=== PATIENT | female | born 1955 | race Caucasian/White ===

== ENCOUNTER 2019-12-25 17:56 | Outpatient (CLI) | payer MEDICARE, OTHER, SELFPAY ==
--- NOTE | ~2019-12-25 | XR_ITS ---
EXAMINATION: XR chest 2V 12/25/2019 18:15 INDICATION: Cough and shortness of breath PROCEDURE: 2 view chest COMPARISON: Comparison to multiple prior studies sequentially, with oldest reviewed study dated 02/06. FINDINGS: The lungs are clear. The cardiomediastinal silhouette is within normal limits. There are no pleural effusions. There is no pneumothorax suspected. IMPRESSION: 1: NO ACUTE CARDIOPULMONARY DISEASE. Reviewed, dictated and finalized at location A. 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
== END 2019-12-25 17:57 | disposition home or self-care (01) ==
PROVIDERS: PCP Family Medicine; Visit Provider Physician Assistant
DX: R05 Cough (principal); R06.02 Shortness of breath
CPT/HCPCS: 71046

== ENCOUNTER 2020-03-26 09:29 | Outpatient (CLI) | payer MEDICARE, OTHER, SELFPAY ==
[2020-03-26 10:08] LABS: Basophils Absolute Auto 0.1 K/mm3 (0.0-0.1); Eosinophils Absolute Auto 0.2 K/mm3 (0-0.3); Eosinophils Percent Auto 3.2 % (0-4.4); Hematocrit 39.1 % (37.0-47.0); Hemoglobin 12.7 g/dL (12.0-15.0); Immature Granulocyte Absolute 0.03 K/mm3 (0.00-0.031); Immature Granulocyte Percent A 0.5 % (0-0.5); Lymphocytes Percent Auto 25.5 % (18.3-44.2); Mean Corpuscular HGB Conc 32.5 g/dl (32-36); Mean Corpuscular Hemoglobin 29.1 pg (26-34); Mean Corpuscular Volume 89.5 fl (80-100); Mean Platelet Volume 10.8 fl (7.4-10.4); Monocytes Absolute Auto 0.6 K/mm3 (0.1-0.6); Monocytes Percent Auto 9.6 % (2.6-8.5); Neutrophils Absolute Auto 3.8 K/mm3 (1.3-6.7); Neutrophils Percent Auto 60.2 % (45.5-73.1); Platelet Count Result 185 k/mm3 (150-375); Red Blood Count 4.37 M/mm3 (4.2-5.4); Red Cell Distribution Width 13.2 % (11.5-14.5); White Blood Count 6.3 K/mm3 (4.5-10.0)
[2020-03-26 10:18] LABS: Add Urine Microscopic? NO; Appearance Urine Clear (Clear); Bacteria Urine Trace /hpf; Bilirubin Urine Negative (Negative); Blood Urine Negative (Negative); Color Urine Yellow (Yellow); Glucose Urine UA Negative (Negative); Ketones Urine Negative (Negative); Leukocyte Esterase Ur Negative LEU/UL (NEGATIVE); Mucus Urine Rare /lpf; Nitrate Urine Negative (Negative); Protein Urine Negative (Negative); RBC Urine 0-2 /hpf (0-2); Specific Grav Ur 1.018 (1.001-1.035); Squamous Epithelial Cell Urine Many /hpf (Few); Urobilinogen Urine Negative mg/dL (<2.0); WBC Urine 0-3 /hpf (0-3)
[2020-03-26 10:21] LABS: Alanine Aminotransferase 20 U/L (4-35); Albumin Level 4.2 g/dL (3.5-5.1); Alkaline Phosphatase 98 U/L (38-126); Aspartate Amino Transferase 27 U/L (14-36); Bilirubin,Total 0.4 mg/dL (0.2-1.3); Blood Urea Nitrogen 22 mg/dL (7-17); Calcium 9.2 mg/dL (8.4-10.2); Carbon Dioxide 28 mmol/L (22-30); Chloride 106 mmol/L (98-107); Cholesterol 157 mg/dL (0-200); Estimated Glomerular Filt Rate 50; Glucose 104 mg/dL (65-105); HDL Direct 49 mg/dL; Potassium 4.6 mmol/L (3.4-5.0); Sodium 140 mmol/L (137-145); Triglycerides 160 mg/dL (<150)
[2020-03-26 10:32] LABS: LDL Cholesterol Direct 69 mg/dL
== END 2020-03-26 09:30 | disposition home or self-care (01) ==
PROVIDERS: PCP Family Medicine; Visit Provider Physician Assistant
DX: I10 Essential (primary) hypertension (principal); E78.5 Hyperlipidemia, unspecified; E03.9 Hypothyroidism, unspecified
CPT/HCPCS: 36415; 80053; 80061; 81003; 84443; 85025

== ENCOUNTER 2020-05-26 15:17 | Outpatient (CLI) | payer MEDICARE, OTHER, SELFPAY ==
--- NOTE | ~2020-05-26 | MM_ITS ---
EXAMINATION: MM screening alex BI w flaquita HISTORY: Screening mammogram TECHNIQUE: Craniocaudal and mediolateral oblique 3-D tomosynthesis images were obtained and synthetic 2-D images were generated. CAD analysis was submitted and interpreted. COMPARISON: 03/28/2019 BREAST PARENCHYMAL COMPOSITION: There are scattered areas of fibroglandular density. FINDINGS: There is no evidence of suspicious mass, calcification, or architectural distortion to sugg est malignancy in either breast. There has been no suspicious interval change. IMPRESSION: 1. No mammographic evidence of malignancy. 2. Recommend routine screening mammography in one year. BI-RADS Category 1: Negative Reviewed, dictated and finalized at location A.
--- NOTE | ~2020-05-26 | CT_ITS ---
EXAMINATION: CT lung screening DATE: 05/26/2020 16:02 INDICATION: Personal history of tobacco dependence, 30 year smoking history TECHNIQUE: Computed tomography (CT) of the chest was performed without intravenous contrast. The dose -length product (DLP) was 377.48 mGy-cm. 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 COMPARISON: 11/07/2017 FINDINGS: Stable 2 mm nodules in the lower lobes are unchanged since the 2017 comparison. No new pulm onary nodule is identified. Calcified pulmonary nodules are consistent with old granulomatous disease . The lungs are free of acute opacities. There is no pleural effusion or pneumothorax. Mild emphysema is noted. No pathologically enlarged thoracic lymph nodes are identified. The heart size is normal. There is moderate thoracic spondylosis. IMPRESSION: 1. Lung-RADS category 2: Benign appearance or behavior. Continue annual screening with noncontrast lo w-dose chest CT in 12 months. Reviewed, dictated and finalized at location A. IMPRESSION: 1. Lung-RADS category 2: Benign appearance or behavior. Continue annual screeni ng with noncontrast low-dose chest CT in 12 months.
== END 2020-05-26 15:18 | disposition home or self-care (01) ==
LOC: ANHIMG 15:20
PROVIDERS: PCP Family Medicine; Visit Provider Family Medicine
DX: Z87.891 Personal history of nicotine dependence (principal); Z12.31 Encounter for screening mammogram for malignant neoplasm of breast
CPT/HCPCS: 77063; 77067; G0297

== ENCOUNTER 2020-06-19 12:44 | Outpatient (CLI) | payer MEDICARE, OTHER, SELFPAY ==
--- NOTE | ~2020-06-19 | US_ITS ---
US venous doppler [facility] DATE: 06/19/2020 13:19 INDICATION: Left leg pain TECHNIQUE: Real-time and color flow imaging and Doppler analysis of the veins of the left lower extre mity COMPARISON: 01/05/2017 venous duplex examination of the left leg FINDINGS: The greater saphenous vein is patent. There is spontaneous and phasic flow and normal augme ntation and color flow signal and normal compression of the deep veins of the left leg. IMPRESSION: No evidence of deep venous thrombosis of left leg Reviewed, dictated and finalized at Location A. Reviewed, dictated and finalized at location A.
== END 2020-06-19 12:45 | disposition home or self-care (01) ==
LOC: ANHIMG 12:45
PROVIDERS: PCP Family Medicine; Visit Provider Family Medicine
DX: M79.605 Pain in left leg (principal)
CPT/HCPCS: 93971

== ENCOUNTER 2020-11-30 08:34 | Outpatient (CLI) | payer MEDICARE, OTHER, SELFPAY ==
[2020-11-30 09:12] LABS: Alanine Aminotransferase 21 U/L (4-35); Alkaline Phosphatase 119 U/L (38-126); Anion Gap 5 mmol/L (8-16); Aspartate Amino Transferase 24 U/L (14-36); Bilirubin,Total 0.6 mg/dL (0.2-1.3); Blood Urea Nitrogen 19 mg/dL (7-17); Calcium 9.2 mg/dL (8.4-10.2); Carbon Dioxide 30 mmol/L (22-30); Chloride 106 mmol/L (98-107); Estimated Glomerular Filt Rate > 60; Glucose 109 mg/dL (65-105); Potassium 4.6 mmol/L (3.4-5.0); Sodium 141 mmol/L (137-145)
== END 2020-11-30 08:35 | disposition home or self-care (01) ==
PROVIDERS: PCP Family Medicine; Visit Provider Family Medicine
DX: I10 Essential (primary) hypertension (principal)
CPT/HCPCS: 36415; 80053

== ENCOUNTER 2021-06-29 09:37 | Outpatient (CLI) | payer MEDICARE, OTHER, SELFPAY ==
[2021-06-29 10:10] LABS: Hematocrit 39.4 % (37.0-47.0); Hemoglobin 12.6 g/dL (12.0-15.0); Mean Corpuscular Hemoglobin 28.8 pg (26-34); Mean Corpuscular Volume 90.2 fl (80-100); Mean Platelet Volume 10.4 fl (7.4-10.4); Platelet Count Result 203 k/mm3 (150-375); Red Blood Count 4.37 M/mm3 (4.2-5.4); Red Cell Distribution Width 13.6 % (11.5-14.5); White Blood Count 6.5 K/mm3 (4.5-10.0)
[2021-06-29 10:12] LABS: Add Urine Microscopic? NO; Appearance Urine Clear (Clear); Bilirubin Urine Negative (Negative); Blood Urine Negative (Negative); Color Urine Yellow (Yellow); Glucose Urine UA Negative (Negative); Ketones Urine Negative (Negative); Leukocyte Esterase Ur Negative LEU/UL (NEGATIVE); Nitrate Urine Negative (Negative); Protein Urine Negative (Negative); Specific Grav Ur 1.019 (1.001-1.035); Urobilinogen Urine Negative mg/dL (<2.0)
[2021-06-29 12:29] LABS: Alanine Aminotransferase 22 U/L (4-35); Albumin Level 4.1 g/dL (3.5-5.1); Alkaline Phosphatase 124 U/L (38-126); Anion Gap 8 mmol/L (8-16); Aspartate Amino Transferase 27 U/L (14-36); Bilirubin,Total 0.5 mg/dL (0.2-1.3); Blood Urea Nitrogen 16 mg/dL (7-17); Calcium 9.2 mg/dL (8.4-10.2); Carbon Dioxide 24 mmol/L (22-30); Chloride 103 mmol/L (98-107); Cholesterol 184 mg/dL (0-200); Estimated Glomerular Filt Rate 56; Glucose 102 mg/dL (65-110); HDL Direct 60 mg/dL; Potassium 4.3 mmol/L (3.4-5.0); Sodium 135 mmol/L (137-145); Triglycerides 121 mg/dL (<150)
[2021-06-29 12:39] LABS: LDL Cholesterol Direct 89 mg/dL
[2021-06-29 14:35] LABS: Hemoglobin A1C 5.5 % (<5.7)
== END 2021-06-29 09:38 | disposition home or self-care (01) ==
PROVIDERS: PCP Family Medicine; Visit Provider Family Medicine
DX: E03.9 Hypothyroidism, unspecified (principal); E11.9 Type 2 diabetes mellitus without complications; E78.5 Hyperlipidemia, unspecified; M85.80 Other specified disorders of bone density and structure, unspecified site; I10 Essential (primary) hypertension
CPT/HCPCS: 36415; 80053; 80061; 81003; 83036; 84443; 85027

== ENCOUNTER 2021-08-23 15:03 | Outpatient (CLI) | payer MEDICARE, OTHER, SELFPAY ==
--- NOTE | ~2021-08-23 | CT_ITS ---
EXAMINATION: CT lung screening EXAM DATE: 08/23/2021 16:08 INDICATION: History of nicotine dependence. TECHNIQUE: Spiral low dose CT of the chest without contrast. Axial, coronal and sagittal images were reviewed. The dose-length product (DLP) for this examination was 392.86 mGy-cm. The exposure was t ailored according to patient size (auto mA exposure control), and iterative reconstruction (ASIR) was used as additional dose reduction technique. Comparison is made to prior examination from 05/26/2020. FINDINGS: Calcified right perihilar granuloma. Tracheobronchial tree is patent. There is no media stinal, hilar or axillary lymphadenopathy. There are no pleural or pericardial effusions. There i s no pneumothorax. Heart normal in size. No evidence of coronary arterial calcification. Cholecys tectomy clips. There is mild to moderate thoracic spondylosis without osteoblastic or osteolytic les ions identified. Mild thoracic scoliosis. IMPRESSION: Lung-RADS category 1, negative (<1%chance of malignancy); recommend continued LDCT screen ing in 1 year. Reviewed, dictated and finalized at location A. IMPRESSION: Lung-RADS category 1, negative (<1%chance of malignancy); recommend continued LDCT screening in 1 year.
--- NOTE | ~2021-08-23 | MM_ITS ---
EXAMINATION: MM screening [facility] BI w flaquita HISTORY: Screening TECHNIQUE: Craniocaudal and mediolateral oblique 3-D tomosynthesis images were obtained and synthetic 2-D images were generated. CAD analysis was submitted and interpreted. COMPARISON: Comparison to multiple prior studies sequentially, with oldest reviewed study dated 01/2019. BREAST PARENCHYMAL COMPOSITION: There are scattered areas of fibroglandular density. FINDINGS: There is no evidence of suspicious mass, calcification, or architectural distortion to sugg est malignancy in either breast. There has been no suspicious interval change. IMPRESSION: 1. No mammographic evidence of malignancy. 2. Recommend routine screening mammography in one year. BI-RADS Category 1: Negative Reviewed, dictated and finalized at location A.
--- NOTE | ~2021-08-23 | DEXA_ITS ---
Bone Density Report Name: Brittnee Ty Age: 66 Sex: Female Ethnicity: White Date of : 1955 Indication: postmenopausal; height loss; Referring Provider: Valente Dockery Study: Bone densitometry was performed. Exam Date: August 23, 2021 Accession number: [id number] Bone Density: Region BMD T-score Z-score Classification Femoral Neck (Right) 0.583 -2.4 -0.9 Osteopenia Total Hip (Right) 0.790 -1.2 0.0 Osteopenia World Health Organization criteria for BMD impression classify patients as: Normal (T-score at or above -1.0), Osteopenia (T-score between -1.0 and -2.5), or Osteoporosis (T-score at or below -2.5). 10-year Fracture Risk(1): Major Osteoporotic Fracture 10% Hip Fracture 1.7% Reported Risk Factors: [place] (), Neck BMD=0.583, BMI=46.1 (1) FRAX(R) Version 3.08. Fracture probability calculated for an untreated patient. Fracture probability may be lower if the patient has received treatment. Clinical Information Provided by Patient: Has used the following medications: Vitamin D Patient maximum height was 63 Menopause Age: 43 Drinks caffeinated beverages Onset of menses at age 13 Number of children 4 Impression: The patient has low bone mass, based on the Right Femoral Neck T-score. The patient has an estimated ten-year risk of hip fracture of 1.7% and an estimated ten-year risk of major fracture of 10%, based on the WHO FRAX algorithm. Discussion: BONE DENSITY IS LOW AT ONE OR MORE SKELETAL SITES. This patient's lowest T-score is low at one or more skeletal sites. It meets the World Health Organization's (WHO) criteria for ?low bone mass? (T-score between -1.0 and -2.5). The patient's 10-year risk of fracture as calculated by FRAX is less than the threshold where pharmacological therapy is recommended by the National Osteoporosis Foundation (NOF). However, all treatment decisions require clinical judgment and consideration of individual patient factors, including patient preferences, comorbidities, previous drug use, risk factors not captured in the FRAX model (e.g., frailty, falls, vitamin D deficiency, increased bone turnover, interval significant decline in bone density) and possible under or overestimation of fracture risk by FRAX. The patient should follow a healthful lifestyle (good nutrition with adequate calcium and vitamin D, and appropriate weight-bearing exercise). Follow-Up: Consider repeating this study in 2 to 3 years to reassess this patient's status, or sooner if there is some new clinical indication. Reported by: MICHAEL on 08/23/2021 3:22:00 PM. Reviewed, dictated and finalized at location A. JOHANNY
== END 2021-08-23 15:04 | disposition home or self-care (01) ==
LOC: ANHIMG 15:05
PROVIDERS: PCP Family Medicine; Visit Provider Family Medicine
DX: Z12.31 Encounter for screening mammogram for malignant neoplasm of breast (principal); Z78.0 Asymptomatic menopausal state; Z87.891 Personal history of nicotine dependence; M85.851 Other specified disorders of bone density and structure, right thigh
CPT/HCPCS: 71271; 77063; 77067; 77080

== ENCOUNTER 2022-01-26 11:22 | Outpatient (CLI) | payer MEDICARE, OTHER, SELFPAY ==
[2022-01-26 12:23] LABS: Alanine Aminotransferase 22 U/L (4-35); Albumin Level 4.4 g/dL (3.5-5.1); Alkaline Phosphatase 120 U/L (38-126); Anion Gap 7 mmol/L (8-16); Aspartate Amino Transferase 28 U/L (14-36); Bilirubin,Total 0.5 mg/dL (0.2-1.3); Blood Urea Nitrogen 19 mg/dL (7-17); Carbon Dioxide 27 mmol/L (22-30); Chloride 105 mmol/L (98-107); Estimated Glomerular Filt Rate 50; Glucose 107 mg/dL (65-110); Potassium 4.8 mmol/L (3.4-5.0); Sodium 139 mmol/L (137-145)
[2022-01-26 12:27] LABS: Hemoglobin A1C 5.4 % (<5.7)
== END 2022-01-26 11:23 | disposition home or self-care (01) ==
PROVIDERS: PCP Family Medicine; Visit Provider Family Medicine
DX: I12.9 Hypertensive chronic kidney disease with stage 1 through stage 4 chronic kidney disease, or unspecified chronic kidney disease (principal); R73.01 Impaired fasting glucose
CPT/HCPCS: 36415; 80053; 83036

== ENCOUNTER 2022-07-06 10:46 | Outpatient (CLI) | payer MEDICARE, OTHER, SELFPAY ==
[2022-07-06 11:33] LABS: Basophils Absolute Auto 0.1 K/mm3 (0.0-0.1); Basophils Percent Auto 0.7 % (0.2-1.2); Eosinophils Absolute Auto 0.2 K/mm3 (0-0.3); Eosinophils Percent Auto 2.1 % (0-4.4); Hematocrit 39.7 % (37.0-47.0); Hemoglobin 12.7 g/dL (12.0-15.0); Immature Granulocyte Absolute 0.05 K/mm3 (0.00-0.031); Immature Granulocyte Percent A 0.7 % (0-0.5); Lymphocytes Absolute Auto 1.83 K/mm3 (0.9-3.2); Lymphocytes Percent Auto 26.1 % (18.3-44.2); Mean Corpuscular Hemoglobin 28.7 pg (26-34); Mean Corpuscular Volume 89.6 fl (80-100); Mean Platelet Volume 10.6 fl (7.4-10.4); Monocytes Absolute Auto 0.6 K/mm3 (0.1-0.6); Monocytes Percent Auto 9.1 % (2.6-8.5); Neutrophils Absolute Auto 4.3 K/mm3 (1.3-6.7); Neutrophils Percent Auto 61.3 % (45.5-73.1); Platelet Count Result 223 k/mm3 (150-375); Red Blood Count 4.43 M/mm3 (4.2-5.4); Red Cell Distribution Width 13.5 % (11.5-14.5)
[2022-07-06 11:34] LABS: Appearance Urine Clear (Clear); Bilirubin Urine Negative (Negative); Blood Urine Negative (Negative); Color Urine Yellow (Yellow); Glucose Urine UA Negative (Negative); Ketones Urine Negative (Negative); Leukocyte Esterase Ur Negative LEU/UL (NEGATIVE); Nitrate Urine Negative (Negative); Protein Urine Negative (Negative); Specific Grav Ur 1.015 (1.001-1.035); Urobilinogen Urine 0.2 mg/dL (<2.0)
[2022-07-06 11:41] LABS: Add Urine Microscopic? NO
[2022-07-06 11:44] LABS: Alanine Aminotransferase 27 U/L (6-35); Albumin Level 4.7 g/dL (3.5-5.1); Alkaline Phosphatase 102 U/L (38-126); Anion Gap 12 mmol/L (8-16); Aspartate Amino Transferase 30 U/L (14-36); Bilirubin,Total 0.5 mg/dL (0.2-1.3); Blood Urea Nitrogen 23 mg/dL (7-17); Calcium 9.4 mg/dL (8.4-10.2); Carbon Dioxide 27 mmol/L (22-30); Chloride 103 mmol/L (98-107); Cholesterol 191 mg/dL (0-200); Estimated Glomerular Filt Rate 50; Glucose 105 mg/dL (65-110); HDL Direct 58 mg/dL; Potassium 4.5 mmol/L (3.4-5.0); Sodium 142 mmol/L (137-145); Triglycerides 151 mg/dL (<150)
[2022-07-06 11:55] LABS: LDL Cholesterol Direct 76 mg/dL
[2022-07-06 13:10] LABS: Hemoglobin A1C 5.6 % (<5.7)
== END 2022-07-06 10:47 | disposition home or self-care (01) ==
LOC: ANHLAB 10:51
PROVIDERS: PCP Family Medicine; Visit Provider Nurse Practitioner Family
DX: E03.9 Hypothyroidism, unspecified (principal); E55.9 Vitamin D deficiency, unspecified; E78.2 Mixed hyperlipidemia; I12.9 Hypertensive chronic kidney disease with stage 1 through stage 4 chronic kidney disease, or unspecified chronic kidney disease; N18.30 Chronic kidney disease, stage 3 unspecified; R73.01 Impaired fasting glucose
CPT/HCPCS: 36415; 80053; 80061; 81003; 83036; 84443; 85025

== ENCOUNTER 2022-07-10 11:04 | Outpatient (CLI) | payer MEDICARE, OTHER, SELFPAY ==
--- NOTE | ~2022-07-10 | XR_ITS ---
EXAMINATION: XR thoracic spine 2V DATE: 07/10/2022 11:32 INDICATION: Pleurodynia, upper back pain TECHNIQUE: AP, lateral and lateral swimmer's views of the thoracic spine were obtained. COMPARISON: None. FINDINGS: There is no fracture, dislocation, or subluxation. The vertebral body heights are normal. T here is moderate loss of intervertebral disc space height at multiple levels in the midthoracic spine . Small degenerative osteophytes project from the anterior endplates of multiple vertebral bodies. C hanges of anterior fusion are noted in the lower cervical spine IMPRESSION: 1. Moderate thoracic spondylosis without acute findings. Reviewed, dictated and finalized at location A.
--- NOTE | ~2022-07-10 | XR_ITS ---
EXAMINATION: [id number] INDICATION: Pleurodynia, left upper back pain TECHNIQUE: A frontal view of the chest and 3 views of the left ribs were obtained. COMPARISON: 12/25/2019 FINDINGS: There are minimal airspace opacities of the right lung base. No displaced rib fracture is i dentified. No pleural effusion or pneumothorax. The cardiomediastinal silhouette is normal. 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 Surgical changes are noted lower cervical spine. IMPRESSION: 1. No evidence of displaced rib fracture. 2. Minimal airspace opacity of the right lower lobe, consistent with atelectasis versus pneumonia. Reviewed, dictated and finalized at location A. IMPRESSION: 1. No evidence of displaced rib fracture. 2. Minimal airspace opacity of the right lower lobe, consistent with atelectasi s versus pneumonia.
== END 2022-07-10 11:05 | disposition home or self-care (01) ==
LOC: ANHIMG 11:10
PROVIDERS: PCP Family Medicine; Visit Provider Family Medicine
DX: R07.81 Pleurodynia (principal); M54.6 Pain in thoracic spine; M47.894 Other spondylosis, thoracic region
CPT/HCPCS: 71101; 72070

== ENCOUNTER 2022-09-05 08:28 | Outpatient (CLI) | payer MEDICARE, OTHER, SELFPAY ==
--- NOTE | 2022-09-05 11:30 | NEURO_ITS ---
Impression: # Patient complaining of shooting pains in both forearms. # Normal nerve conduction study. # Normal needle/EMG exam. # Clinical correlation recommended. Nerve Conduction Studies Anti Sensory Summary Table Stim Site NR Peak (ms) P-T Amp (?V) Site1 Site2 Delta-P (ms) Dist (cm) Rancho (m/s) Left Median Anti Sensory (2-3nd Digit) Wrist 3.3 43.1 Wrist 2-3nd Digit 3.3 14.0 42 Wrist 3.4 42.0 Wrist 2-3nd Digit 3.3 14.0 42 Right Median Anti Sensory (2-3nd Digit) Wrist 3.1 47.3 Wrist 2-3nd Digit 3.1 14.0 45 Wrist 3.2 23.3 Wrist 2-3nd Digit 3.1 14.0 45 Left Radial Anti Sensory (Base 1st Digit) Wrist 2.0 44.1 Wrist Base 1st Digit 2.0 0.0 Right Radial Anti Sensory (Base 1st Digit) Wrist 1.8 45.0 Wrist Base 1st Digit 1.8 0.0 Left Ulnar Anti Sensory (5th Digit) Wrist 3.0 52.6 Wrist 5th Digit 3.0 14.0 47 Right Ulnar Anti Sensory (5th Digit) Wrist 2.7 49.0 Wrist 5th Digit 2.7 14.0 52 Motor Summary Table Stim Site NR Onset (ms) O-P Amp (mV) Site1 Site2 Delta-0 (ms) Dist (cm) Rancho (m/s) Left Median Motor (Abd Poll Brev) Wrist 3.0 1.3 Elbow Wrist 3.3 17.0 52 Elbow 6.3 1.0 Right Median Motor (Abd Poll Brev) Wrist 3.3 4.2 Elbow Wrist 3.2 17.0 53 Elbow 6.5 3.5 Left Ulnar Motor (Abd Dig Minimi) Wrist 2.7 1.6 A Elbow Wrist 4.3 25.0 58 A Elbow 7.0 1.2 B Elbow Wrist 2.8 16.0 57 B Elbow 5.5 1.3 Right Ulnar Motor (Abd Dig Minimi) Wrist 2.7 4.0 A Elbow Wrist 3.8 22.0 58 A Elbow 6.5 3.9 B Elbow Wrist 2.8 17.0 61 B Elbow 5.5 3.6 F Wave Studies NR F-Lat (ms) L-R F-Lat (ms) Left Median (Mrkrs) (Abd Poll Brev) 23.71 0.12 Right Median (Mrkrs) (Abd Poll Brev) 23.83 0.12 Left Ulnar (Mrkrs) (Abd Dig Min) 24.32 0.96 Right Ulnar (Mrkrs) (Abd Dig Min) 23.36 0.96 EMG Side Muscle Nerve Root Ins Act Fibs Amp Dur Recrt Comment Right 1stDorInt Ulnar C8-T1 Nml Nml Nml Nml Nml Right Ext Indicis Radial (Post Int) C7-8 Nml Nml Nml Nml Nml Right Ext Digitorum Radial (Post Int) C7-8 Nml Nml Nml Nml Nml Right BrachioRad Radial C5-6 Nml Nml Nml Nml Nml Right PronatorTeres Median C6-7 Nml Nml Nml Nml Nml Right Abd Poll Brev Median C8-T1 Nml Nml Nml Nml Nml Left 1stDorInt Ulnar C8-T1 Nml Nml Nml Nml Nml Left Ext Indicis Radial (Post Int) C7-8 Nml Nml Nml Nml Nml Left Ext Digitorum Radial (Post Int) C7-8 Nml Nml Nml Nml Nml Left BrachioRad Radial C5-6 Nml Nml Nml Nml Nml Left PronatorTeres Median C6-7 Nml Nml Nml Nml Nml Left Abd Poll Brev Median C8-T1 Nml Nml Nml Nml Nml MTDD
== END 2022-09-05 08:29 | disposition home or self-care (01) ==
LOC: ANHNEURO 08:29
PROVIDERS: PCP Family Medicine; Visit Provider Family Medicine
DX: G56.03 Carpal tunnel syndrome, bilateral upper limbs (principal)
CPT/HCPCS: 95886; 95911

== ENCOUNTER 2022-09-25 08:49 | Outpatient (CLI) | payer MEDICARE, OTHER, SELFPAY ==
--- NOTE | ~2022-09-25 | CT_ITS ---
EXAMINATION: CT lung screening DATE: 09/25/2022 09:20 INDICATION: lung cancer screening TECHNIQUE: Computed tomography (CT) of the chest was performed without intravenous contrast. Addition al 3D reconstructions utilizing coronal maximum intensity projection (MIP) were performed. Automated exposure control and iterative reconstruction technique were employed. The dose-length product was 50 0.94 mGy-cm. COMPARISON: 08/23/2021 FINDINGS: A couple calcified nodules in the right middle lobe along with calcified right hilar lymph nodes cons istent with old granulomatous disease. Noncalcified 3 mm right lower lobe nodule on series 4, image 8 9. 2-3 mm lingular nodule along the fissure on image 69 and 70. No other suspicious pulmonary nodules , pneumonia, pulmonary edema or pleural effusion. Heart size is normal. Mitral annular calcification. No pericardial effusion. Thoracic aorta is normal in caliber. No pathologically enlarged thoracic ly mphadenopathy. Couple cholecystectomy clips at the gallbladder fossa. Mild S-shaped curvature of the thoracic spine with severe spondylosis. Partially visualized bilateral vertical sherrill and pedicle screw fixation at L3 and extending caudally beyond the inferior margin of the [id number]-sg-dimi. IMPRESSION: 1. Lung-RADS category 2: Benign appearance or behavior. Continue annual screening with noncontrast lo w-dose chest CT in 12 months. Reviewed, dictated and finalized at location B. IMPRESSION: 1. Lung-RADS category 2: Benign appearance or behavior. Continue annual screeni ng with noncontrast low-dose chest CT in 12 months.
--- NOTE | ~2022-09-25 | MM_ITS ---
EXAMINATION: MM screening alex BI w flaquita HISTORY: Screening TECHNIQUE: Craniocaudal and mediolateral oblique 3-D tomosynthesis images were obtained and synthetic 2-D images were generated. CAD analysis was submitted and interpreted. COMPARISON: Comparison to multiple prior studies sequentially, with oldest reviewed study dated 01/2019. BREAST PARENCHYMAL COMPOSITION: The breasts are almost entirely fatty. FINDINGS: There is no evidence of suspicious mass, calcification, or architectural distortion to sugg est malignancy in either breast. There has been no suspicious interval change. IMPRESSION: 1. No mammographic evidence of malignancy. 2. Recommend routine screening mammography in one year. BI-RADS Category 1: Negative Reviewed, dictated and finalized at location A.
== END 2022-09-25 08:50 | disposition home or self-care (01) ==
PROVIDERS: PCP Family Medicine; Visit Provider Family Medicine
DX: Z12.31 Encounter for screening mammogram for malignant neoplasm of breast (principal); Z87.891 Personal history of nicotine dependence
CPT/HCPCS: 71271; 77063; 77067

== ENCOUNTER 2023-01-15 08:37 | Outpatient (CLI) | payer MEDICARE, OTHER, SELFPAY ==
--- NOTE | ~2023-01-15 | XR_ITS ---
Cervical Spine: AP, lateral, open-mouth views Clinical History: Pain Findings: The normal lordotic curve is maintained. Anterior fusion is present from C4 to C6, with fus ion across the relevant disc spaces. There is advanced degenerative disc narrowing at C6-C7. There is mild degenerative change at C3-C4. Pre-vertebral soft tissues are unremarkable. Impression: Anterior fusion from C4 to C6. Degenerative disc change, as above. Reviewed, dictated and finalized at location . ENGINEER Impression: Anterior fusion from C4 to C6. Degenerative disc change, as above.
[2023-01-15 09:23] LABS: Alanine Aminotransferase 21 U/L (6-35); Albumin Level 4.4 g/dL (3.5-5.1); Alkaline Phosphatase 102 U/L (38-126); Anion Gap 5 mmol/L (8-16); Aspartate Amino Transferase 28 U/L (14-36); Bilirubin,Total 0.7 mg/dL (0.2-1.3); Blood Urea Nitrogen 19 mg/dL (7-17); Calcium 8.9 mg/dL (8.4-10.2); Carbon Dioxide 27 mmol/L (22-30); Chloride 108 mmol/L (98-107); Cholesterol 165 mg/dL (0-200); Estimated Glomerular Filt Rate 55; Glucose 126 mg/dL (65-110); HDL Direct 50 mg/dL; Potassium 4.7 mmol/L (3.4-5.0); Sodium 140 mmol/L (137-145); Triglycerides 139 mg/dL (<150)
[2023-01-15 09:34] LABS: LDL Cholesterol Direct 67 mg/dL
== END 2023-01-15 08:38 | disposition home or self-care (01) ==
PROVIDERS: PCP Family Medicine; Visit Provider Family Medicine
DX: M79.601 Pain in right arm (principal); M79.602 Pain in left arm; E78.5 Hyperlipidemia, unspecified; I12.9 Hypertensive chronic kidney disease with stage 1 through stage 4 chronic kidney disease, or unspecified chronic kidney disease; E03.9 Hypothyroidism, unspecified; M43.22 Fusion of spine, cervical region
CPT/HCPCS: 36415; 72040; 80053; 80061

== ENCOUNTER 2023-03-06 10:54 | Outpatient (CLI) | payer MEDICARE, OTHER, SELFPAY ==
--- NOTE | ~2023-03-06 | MR_ITS ---
EXAMINATION: MR cervical spine wo con DATE: 03/06/2023 11:38 INDICATION: Cervical radiculopathy. TECHNIQUE: Magnetic resonance imaging (MRI) of the cervical spine was performed without intravenous c ontrast. COMPARISON: Cervical spine MRI 05/11/2018, radiographs 01/15/2023 FINDINGS: There is 12 degrees levoscoliosis of cervicothoracic spine. Vertebral body heights are norm al. There are changes of anterior fusion procedure from C4 to C6 with healed interbody bone graft and anterior plate and screws. There is mildly decreased disc height at C3-C4 and severely decreased dis c height at C6-C7. The spinal cord signal intensity is normal. The following disc levels are specific ally discussed: C2-C3: The disc is bulging. There is mild left uncovertebral joint osteoarthritis. There is mild bila teral facet joint osteoarthritis. There is no neural foraminal stenosis. There is mild central canal stenosis. C3-C4: The disc is bulging. There is mild left uncovertebral joint osteoarthritis. There is severe ri ght and mild left facet joint osteoarthritis. There is mild bilateral neural foraminal stenosis. Ther e is mild central canal stenosis. C4-C5: There is mild bilateral uncovertebral joint hypertrophy. There is mild bilateral facet joint o steoarthritis. There is mild left neural foraminal stenosis. There is no central canal stenosis. C5-C6: There is no uncovertebral joint hypertrophy. There is no facet joint osteoarthritis. There is no neural foraminal stenosis. There is no central canal stenosis. C6-C7: The disc is bulging. There is severe bilateral uncovertebral joint osteoarthritis. There is mo derate right and mild left facet joint osteoarthritis. There is mild bilateral neural foraminal steno sis. There is mild central canal stenosis. C7-T1: There is a central extrusion. There is no uncovertebral joint osteoarthritis. There is severe right and mild left facet joint osteoarthritis. There is no neural foraminal stenosis. There is mild central canal stenosis. IMPRESSION: 1. Severe cervical spondylosis, stable from 05/11/2018. 2. Anterior fusion procedure from C4 to C6. Reviewed, dictated and finalized at location A.
== END 2023-03-06 10:55 | disposition home or self-care (01) ==
PROVIDERS: PCP Family Medicine; Visit Provider Family Medicine
DX: M47.22 Other spondylosis with radiculopathy, cervical region (principal); Z98.1 Arthrodesis status
CPT/HCPCS: 72141

== ENCOUNTER 2023-06-05 09:42 | Emergency (ER) | payer MEDICARE, OTHER, SELFPAY ==
[2023-06-05 10:02] VITALS: BP 144/77; PULSE 65; RESP 20; TEMP 36.4; O2SAT 98
--- NOTE | 2023-06-05 10:19 | ED.DENTAL ---
HPI - Dental/Oral General Chief complaint: Dental/Oral Stated complaint: thrush in mouth Time Seen by Provider: 06/05/23 10:19 Source: patient Mode of arrival: ambulatory Limitations: no limitations History of Present Illness HPI Narrative: 68-year-old female presents with complaint of dry mouth, oral lesions that are painful, white spots to mouth and angles of mouth. Reports symptoms for approximately 3 weeks, getting progressively worse. States she stopped wearing her partial mouth piece 3 weeks ago due to discomfort. States that she was cleaning it in a dental solution but stopped it was just leaving it in water. Concerned she may have given herself thrush. all systems reviewed and negative except as noted above. Related Data Home Medications Medication Instructions Recorded Confirmed aspirin 81 mg tablet,delayed 81 mg PO DAILY 12/15/19 06/05/23 release (Aspir-Low) crisaborole 2 % topical ointment 1 applic topical BID 09/27/22 06/05/23 (Eucrisa) Allergies Allergy/AdvReac Type Severity Reaction Status Date / Time adhesive Allergy Unknown rash Verified 02/26/23 14:43 escitalopram Allergy Unknown Not Verified 02/26/23 14:43 Effective paroxetine Allergy Unknown Not Verified 02/26/23 14:43 Effective Penicillins Allergy Unknown unk Verified 02/26/23 14:43 sertraline Allergy Unknown Flat Affect Verified 02/26/23 14:43 morphine AdvReac Unknown Itching Verified 02/26/23 14:43 Review of Systems Review of Systems: CONSTITUTIONAL: Denies fever, chills, or sweats. EYES: Denies visual changes, redness, or discharge. ENT: Denies rhinorrhea, congestion, sore throat, or otalgia. Reports Painful mouth lesions with dry mouth. CARDIOVASCULAR: Denies chest pain, palpitations, or edema. RESPIRATORY: Denies cough or dyspnea. GASTROINTESTINAL: Denies abdominal pain, nausea, vomiting, or diarrhea. GENITOURINARY: Denies dysuria or hematuria. SKIN: Denies rash or itching. MUSCULOSKELETAL: Denies back pain, joint pain, or myalgia. NEUROLOGIC: Denies headache, numbness, or weakness. PSYCHIATRIC: Denies anxiety or depression. All other systems reviewed are negative, except as documented in HPI. [facility] Past Medical History Medical History Chronic kidney disease, stage 3 (moderate) Chronic kidney disease, stage 3 unspecified Chronic kidney disease, stage 3 unspecified Chronic low back pain CKD (chronic kidney disease) ZAHRA (generalized anxiety disorder) HLD (hyperlipidemia) Major depression Obesity Osteopenia Shaking Surgical History Surgical History History of carpal tunnel release History of fusion of cervical spine C4-5 History of knee replacement History of shoulder surgery right Status post left hip replacement Family History Family History Father Hypertension Family history of coronary artery disease Patient's father is , Onset Age: 61 Mother Hypertension, Onset Age: 60 Family history of coronary artery disease Family history of cardiovascular disease, Onset Age: 60 Other Family history of arthritis Family history of gastrointestinal disorder Family history of heart disease in male family member before age 55 Social History Social History Smoking packs per day: 0.5 Smoking cigarettes per day: 10.0 Years smoked: 25 Smoking pack-years: 12.50 Smoking status: Former smoker Tobacco type: cigarettes Second hand tobacco smoke exposure: Yes Smoking end date: 11/26/09 Alcohol intake: current Substance use: never Substance use type: does not use Living arrangements: with family Occupation/Education: retired Gender identity (if verbalized by the patient): Female Sexual Orientation (if Verbalized by the Patient): [place]
== END 2023-06-05 10:54 | disposition home or self-care (01) ==
PROVIDERS: Emergency Provider Nurse Practitioner Family; PCP Family Medicine
DX: B37.0 Candidal stomatitis (principal); B37.83 Candidal cheilitis; N18.30 Chronic kidney disease, stage 3 unspecified; E78.5 Hyperlipidemia, unspecified; E66.9 Obesity, unspecified; Z68.41 Body mass index [BMI] 40.0-44.9, adult; Z87.891 Personal history of nicotine dependence
CPT/HCPCS: 99213; G0463

== ENCOUNTER 2023-08-31 08:32 | Outpatient (CLI) | payer MEDICARE, OTHER, SELFPAY ==
[2023-08-31 09:19] LABS: Appearance Urine Clear (Clear); Bilirubin Urine Negative (Negative); Blood Urine Negative (Negative); Color Urine Yellow (Yellow); Glucose Urine UA Negative (Negative); Ketones Urine Negative (Negative); Leukocyte Esterase Ur Negative LEU/UL (NEGATIVE); Nitrate Urine Negative (Negative); Protein Urine Negative (Negative); Specific Grav Ur 1.015 (1.001-1.035); Urobilinogen Urine 0.2 mg/dL (<2.0); pH Urine 5.5 (5.0-9.0)
[2023-08-31 09:33] LABS: Alanine Aminotransferase 24 U/L (6-35); Albumin Level 4.1 g/dL (3.5-5.1); Alkaline Phosphatase 93 U/L (38-126); Anion Gap 6 mmol/L (8-16); Aspartate Amino Transferase 30 U/L (14-36); Bilirubin,Total 0.6 mg/dL (0.2-1.3); Blood Urea Nitrogen 16 mg/dL (7-17); Carbon Dioxide 27 mmol/L (22-30); Chloride 107 mmol/L (98-107); Cholesterol 171 mg/dL (0-200); Estimated Glomerular Filt Rate 55; Glucose 106 mg/dL (65-110); HDL Direct 52 mg/dL; Potassium 3.8 mmol/L (3.4-5.0); Sodium 140 mmol/L (137-145); Triglycerides 175 mg/dL (<150)
[2023-08-31 09:35] LABS: Hemoglobin 11.5 g/dL (12.0-15.0); Mean Corpuscular HGB Conc 31.1 g/dl (32-36); Mean Corpuscular Volume 93.2 fl (80-100); Mean Platelet Volume 10.3 fl (7.4-10.4); Platelet Count Result 208 k/mm3 (150-375); Red Blood Count 3.97 M/mm3 (4.2-5.4); Red Cell Distribution Width 13.2 % (11.5-14.5); White Blood Count 5.7 K/mm3 (4.5-10.0)
[2023-08-31 09:42] LABS: Hemoglobin A1C 5.4 % (<5.7)
[2023-08-31 09:45] LABS: LDL Cholesterol Direct 74 mg/dL
[2023-08-31 09:46] LABS: Add Urine Microscopic? NO
== END 2023-08-31 08:33 | disposition home or self-care (01) ==
PROVIDERS: PCP Family Medicine; Visit Provider Physician Assistant
DX: E03.9 Hypothyroidism, unspecified (principal); E55.9 Vitamin D deficiency, unspecified; E78.5 Hyperlipidemia, unspecified; I12.9 Hypertensive chronic kidney disease with stage 1 through stage 4 chronic kidney disease, or unspecified chronic kidney disease; F41.0 Panic disorder [episodic paroxysmal anxiety]; R73.01 Impaired fasting glucose; N18.9 Chronic kidney disease, unspecified
CPT/HCPCS: 36415; 80053; 80061; 81003; 83036; 84443; 85027

== ENCOUNTER 2023-09-11 14:24 | Outpatient (CLI) | payer MEDICARE, OTHER, SELFPAY ==
--- NOTE | ~2023-09-11 | CT_ITS ---
EXAMINATION:CT lung screening DATE: 09/11/2023 14:36 INDICATION: Personal history of nicotine dependence. Smoker who quit 11 years ago with 30 pack year h istory. TECHNIQUE: Computed tomography (CT) of the chest was performed without intravenous contrast. Automate d exposure control and iterative reconstruction technique were employed. The dose-length product (DLP ) was 445.65 mGy-cm. COMPARISON: Chest CT 09/25/2022 FINDINGS: The lungs demonstrate mild atelectasis. Calcified right lung nodules and calcified right hi lar lymph nodes are consistent with old granulomatous disease. No pleural effusion. The heart size is normal. No pericardial effusion. There are changes of cholecystectomy. There are changes of anterior fusion procedure in cervical spine. There are changes of posterior fusion procedure in lumbar spine. There is severe thoracic spondylosis. IMPRESSION: 1. Lung-RADS category 1: Negative. Continue annual screening with noncontrast low-dose chest CT in 12 months. Reviewed, dictated and finalized at location E. IMPRESSION: 1. Lung-RADS category 1: Negative. Continue annual screening with noncontrast l ow-dose chest CT in 12 months.
== END 2023-09-11 14:25 | disposition home or self-care (01) ==
LOC: ANHIMG 14:26
PROVIDERS: PCP Family Medicine; Visit Provider Family Medicine
DX: Z12.2 Encounter for screening for malignant neoplasm of respiratory organs (principal); Z87.891 Personal history of nicotine dependence
CPT/HCPCS: 71271

== ENCOUNTER 2023-09-18 12:02 | Outpatient (CLI) | payer MEDICARE, OTHER, SELFPAY ==
[2023-09-18 13:10] LABS: Rheumatoid Factor < 12.0 IU/ML (<12)
== END 2023-09-18 12:03 | disposition home or self-care (01) ==
LOC: ANHLAB 12:06
PROVIDERS: PCP Family Medicine; Visit Provider Physician Assistant
DX: M25.50 Pain in unspecified joint (principal)
CPT/HCPCS: 36415; 86038; 86430

== ENCOUNTER 2023-10-08 11:18 | Outpatient (CLI) | payer MEDICARE, OTHER, SELFPAY ==
--- NOTE | ~2023-10-08 | XR_ITS ---
Bilateral Hands Technique: Bilateral PA, oblique, and lateral views, and ball-catcher's view were obtained. Clinical History: Pain Findings: No acute fracture or dislocation is seen. Osseous alignment is anatomic. There are mild sca ttered degenerative changes at the interphalangeal joints of the fingers bilaterally. There is modera te to advanced degenerative change at the left first CMC joint. No evidence for erosive arthropathy. Soft tissues are unremarkable. Impression: Mild bilateral osteoarthritic changes scattered in the interphalangeal joints of the fingers. Moderate to advanced degenerative change at the left first CMC joint. Reviewed, dictated and finalized at location . TENDER Impression: Mild bilateral osteoarthritic changes scattered in the interphalangeal joints o f the fingers. Moderate to advanced degenerative change at the left first CMC joint.
[2023-10-08 12:35] LABS: Basophils Absolute Auto 0.1 K/mm3 (0.0-0.1); Basophils Percent Auto 0.8 % (0.2-1.2); Eosinophils Absolute Auto 0.2 K/mm3 (0-0.3); Eosinophils Percent Auto 2.5 % (0-4.4); Hematocrit 36.1 % (37.0-47.0); Hemoglobin 11.5 g/dL (12.0-15.0); Immature Granulocyte Absolute 0.02 K/mm3 (0.00-0.031); Immature Granulocyte Percent A 0.3 % (0-0.5); Lymphocytes Percent Auto 22.8 % (18.3-44.2); Mean Corpuscular HGB Conc 31.9 g/dl (32-36); Mean Corpuscular Hemoglobin 28.5 pg (26-34); Mean Corpuscular Volume 89.4 fl (80-100); Monocytes Absolute Auto 0.6 K/mm3 (0.1-0.6); Monocytes Percent Auto 7.7 % (2.6-8.5); Neutrophils Absolute Auto 5.2 K/mm3 (1.3-6.7); Neutrophils Percent Auto 65.9 % (45.5-73.1); Platelet Count Result 216 k/mm3 (150-375); Red Blood Count 4.04 M/mm3 (4.2-5.4); Red Cell Distribution Width 13.5 % (11.5-14.5); White Blood Count 7.9 K/mm3 (4.5-10.0)
[2023-10-08 13:05] LABS: Free T4 Free Thyroxine 0.75 ng/mL (0.78-2.19)
[2023-10-08 13:15] LABS: Thyroid Stimulating Hormone 0.299 uIU/mL (0.465-4.680)
== END 2023-10-08 11:19 | disposition home or self-care (01) ==
PROVIDERS: PCP Family Medicine; Visit Provider Physician Assistant
DX: D64.9 Anemia, unspecified (principal); E05.90 Thyrotoxicosis, unspecified without thyrotoxic crisis or storm; F41.0 Panic disorder [episodic paroxysmal anxiety]; E55.9 Vitamin D deficiency, unspecified; M19.041 Primary osteoarthritis, right hand; M19.042 Primary osteoarthritis, left hand
CPT/HCPCS: 36415; 73130; 84439; 84443; 85025

== ENCOUNTER 2023-10-25 09:54 | Outpatient (CLI) | payer MEDICARE, OTHER, SELFPAY ==
--- NOTE | ~2023-10-25 | MR_ITS ---
EXAMINATION: MR pituitary wo con DATE: 10/25/2023 11:17 INDICATION: Other specified hypothyroidism. TECHNIQUE: Magnetic resonance imaging (MRI) of the brain and brainstem was performed without intraven ous contrast. COMPARISON: None. FINDINGS: The pituitary is normal in size with height of 4 mm and concave superior margin. The infund ibulum is at the midline. There are scattered areas of nonspecific increased T2-weighted signal inten sity in the cerebral white matter, which is within normal limits for the patient's age. There is no i ntracranial hemorrhage, acute infarction, or abnormal intracranial mass lesion. The ventricles are no rmal in size. The orbits are normal. The paranasal sinuses are clear. There is a small left mastoid e ffusion. IMPRESSION: 1. Normal aging brain. Reviewed, dictated and finalized at location A. K STEWARDESS IMPRESSION: 1. Normal aging brain.
== END 2023-10-25 09:55 | disposition home or self-care (01) ==
PROVIDERS: PCP Family Medicine; Visit Provider Family Medicine
DX: E03.8 Other specified hypothyroidism (principal)
CPT/HCPCS: 70551

== ENCOUNTER 2023-11-02 09:00 | Outpatient (RCR) | payer MEDICARE, OTHER, SELFPAY ==
--- NOTE | 2023-10-26 13:33 | OTOPEVAL1 ---
Assessment and note entered by RICHA Cotton/Maren, CHT Evaluation Information Diagnosis bilateral thumb CMC OA and tenosynovitis Subjective Information Patient presents today with bilateral hand pain and stiffness. Reports it's worst in the morning. Reports she received steroid injections in bilateral wrists on 10/15/23. She states since then her ROM has improved and she is now able to close her hands. She does a lot of crocheting and she reports pain with this, only able to go for an hour. Reports pain with holding the steering wheel, picking up a coffee cup, or picking up a skillet with 1 hand. x-ray of bilateral hands: Mild bilateral osteoarthritic changes scattered in the interphalangeal joints of the fingers. Moderate to advanced degenerative change at the left first CMC joint. History of cervical fusion and bilateral carpal tunnel release. Assessment OT Clinical Summary Patient referred to OT with bilateral hand OA and tenosynovitis of the 1st dorsal compartment. She presents with a decline in functional hand use for self-care tasks, taking care of her grandchildren , cooking, and leisure pursuits. Skilled OT indicated for use of modalities and manual therapy , splinting, HEP education, and functional therapeutic exercise to to facilitate reduced pain with ADLs. Plan of Care Interventions Therapeutic Exercise,Manual Therapy,Therapeutic Activities,Hot Pack/Cold Pack,Check Out for Orthotic/Pr,Ultrasound,Paraffin OT Services Indicated Yes Treatment Frequency and 1-2x/week for 4 weeks Duration These treatments will address the objective and functional deficits as defined above. The patient will be advanced safely and appropriately in order for the patient to progress towards his/her prior level of function. Additional exercises will be introduced and as well as a comprehensive home exercise program upon discharge, if needed, ?to ensure carryover of functional gains achieved in the clinic. This treatment plan has been reviewed and agreement upon by the patient.
--- NOTE | 2023-10-26 13:33 | OPREHPOC ---
Outpatient Therapy Plan of Care This is a Multidisciplinary Plan of Care that may contain components documented by all disciplines (PT, OT, and ST.) OT Problem 1 OT Problem #1 Knowledge Deficit OT Goal 1 Goal 1. Patient to be independent with instructed materials. Target Visit 6 OT Problem 2 OT Problem #2 Pain OT Goal 1 Goal 1. Patient to report reduced hand/thumb pain bilaterally with ADLs, reporting pain 2/10 or less at worst . Target Visit 6 OT Problem 3 OT Problem #3 Impaired Strength OT Goal 1 Goal 1. 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 2. Increase (L) telephone services sales representative strength to 43 lbs. 3. Increase (R) lateral pinch strength to 4 lbs. 4. Increase (L) lateral pinch strength to 3 lbs. Target Visit 6
--- NOTE | 2023-11-09 13:29 | PCOTNOTE ---
Patient did not show up for scheduled appointment this date. Called patient who states she forgot about the appointment.
--- NOTE | 2023-11-16 08:21 | PCOTNOTE ---
Patient called & cancelled scheduled appointment this date due.
--- NOTE | 2023-11-21 13:43 | OTOPDC ---
Assessment and note entered by Leonard Kimble, OTR/L, CHT Discharge Notification 11/22/23 OT Clinical Summary Patient called and cancelled all of her appointments due to having a in the family and needing to travel for an unknown period of time. Informed her that she will need a new order from the doctor to return for therapy. She attended the initial eval and 1 follow up visit. D/C today per patient request.
== END 2023-11-21 14:55 | disposition home or self-care (01) ==
LOC: ANHOT 09:00
PROVIDERS: PCP Family Medicine; Visit Provider Plastic Surgery
DX: M18.0 Bilateral primary osteoarthritis of first carpometacarpal joints (principal)
CPT/HCPCS: 97018; 97110; 97140; 97165; 99199

== ENCOUNTER 2023-11-06 15:50 | Outpatient (CLI) | payer MEDICARE, OTHER, SELFPAY ==
[2023-11-06 17:14] LABS: Free T4 Free Thyroxine 0.99 ng/mL (0.78-2.19)
== END 2023-11-06 15:51 | disposition home or self-care (01) ==
LOC: ANHLAB 15:52
PROVIDERS: PCP Family Medicine; Visit Provider Family Medicine
DX: F41.0 Panic disorder [episodic paroxysmal anxiety] (principal)
CPT/HCPCS: 36415; 84439; 84443

== ENCOUNTER 2023-12-18 11:34 | Outpatient (CLI) | payer MEDICARE, OTHER, SELFPAY ==
[2023-12-18 12:09] LABS: Alanine Aminotransferase 22 U/L (6-35); Albumin Level 4.4 g/dL (3.5-5.1); Alkaline Phosphatase 104 U/L (38-126); Anion Gap 8 mmol/L (8-16); Aspartate Amino Transferase 28 U/L (14-36); Bilirubin,Total 0.6 mg/dL (0.2-1.3); Blood Urea Nitrogen 23 mg/dL (7-17); Calcium 9.2 mg/dL (8.4-10.2); Carbon Dioxide 25 mmol/L (22-30); Chloride 107 mmol/L (98-107); Estimated Glomerular Filt Rate 55; Glucose 106 mg/dL (65-110); Potassium 4.2 mmol/L (3.4-5.0); Sodium 140 mmol/L (137-145)
[2023-12-18 12:38] LABS: Thyroid Stimulating Hormone 0.588 uIU/mL (0.465-4.680)
[2023-12-18 13:04] LABS: Free T4 Free Thyroxine 0.83 ng/mL (0.78-2.19)
== END 2023-12-18 11:35 | disposition home or self-care (01) ==
PROVIDERS: PCP Family Medicine; Visit Provider Family Medicine
DX: E05.90 Thyrotoxicosis, unspecified without thyrotoxic crisis or storm (principal); F41.0 Panic disorder [episodic paroxysmal anxiety]; I12.9 Hypertensive chronic kidney disease with stage 1 through stage 4 chronic kidney disease, or unspecified chronic kidney disease; N18.9 Chronic kidney disease, unspecified
CPT/HCPCS: 36415; 80053; 84439; 84443

== ENCOUNTER 2024-01-25 09:35 | Outpatient (CLI) | payer MEDICARE, OTHER, SELFPAY ==
--- NOTE | ~2024-01-25 | MM_ITS ---
EXAMINATION: MM screening alex BI w flaquita HISTORY: Screening TECHNIQUE: Craniocaudal and mediolateral oblique 3-D tomosynthesis images were obtained and synthetic 2-D images were generated. CAD analysis was submitted and interpreted. COMPARISON: Comparison to multiple prior studies sequentially, with oldest reviewed study dated 01/2019. BREAST PARENCHYMAL COMPOSITION: Not dense: There are scattered areas of fibroglandular density. FINDINGS: There is no evidence of suspicious mass, calcification, or architectural distortion to sugg est malignancy in either breast. There has been no suspicious interval change. IMPRESSION: 1. No mammographic evidence of malignancy. 2. Recommend routine screening mammography in one year. BI-RADS Category 1: Negative Reviewed, dictated and finalized at location A. OBIOLOGY LAB TECHNICIAN
--- NOTE | ~2024-01-25 | DEXA_ITS ---
Bone Density Report Name: JULIETA GRIFFITHS Age: 68 Sex: Female Ethnicity: White Date of : 1955 Indication: osteopenia; height loss; Referring Provider: NAIN COOK Study: Bone densitometry was performed. Exam Date: January 25, 2024 Accession number: [id number] Bone Density: Region BMD T-score Z-score Classification Femoral Neck (Right) 0.705 -1.3 0.4 Osteopenia Total Hip (Right) 0.810 -1.1 0.3 Osteopenia World Health Organization criteria for BMD impression classify patients as: Normal (T-score at or above -1.0), Osteopenia (T-score between -1.0 and -2.5), or Osteoporosis (T-score at or below -2.5). 10-year Fracture Risk(1): Major Osteoporotic Fracture 7.6% Hip Fracture 0.7% Reported Risk Factors: [place] (), Neck BMD=0.705, BMI=47.0 (1) FRAX(R) Version 3.08. Fracture probability calculated for an untreated patient. Fracture probability may be lower if the patient has received treatment. Previous Exams: Region Exam Age BMD T-score BMD Change BMD Change Date g/cm2 vs Baseline vs Previous Total Hip(Right) 01/25/2024 68 0.810 -1.1 0.020 (2.5%) 0.020 (2.5%) 08/23/2021 66 0.790 -1.2 *Denotes significance at 95% confidence level, LSC for Total Hip = 0.027 g/cm2 Clinical Information Provided by Patient: Has used the following medications: Vitamin D Patient maximum height was 63 Menopause Age: 46 No regular weight bearing exercise Drinks caffeinated beverages Onset of menses at age 13 Number of children 4 Impression: The patient has low bone mass, based on the Right Femoral Neck T-score. The patient has an estimated ten-year risk of hip fracture of 0.7% and an estimated ten-year risk of major fracture of 7.6%, based on the WHO FRAX algorithm. No significant bone loss was observed. Discussion: BONE DENSITY IS LOW AT ONE OR MORE SKELETAL SITES. This patient's lowest T-score is low at one or more skeletal sites. It meets the World Health Organization's (WHO) criteria for ?low bone mass? (T-score between -1.0 and -2.5). The patient's 10-year risk of fracture as calculated by FRAX is less than the threshold where pharmacological therapy is recommended by the National Osteoporosis Foundation (NOF). However, all treatment decisions require clinical judgment and consideration of individual patient factors, including patient preferences, comorbidities, previous drug use, risk factors not captured in the FRAX model (e.g., frailty, falls, vitamin D deficiency, increased bone turnover, interval significant decline in bone density) and possible under or overestimati
== END 2024-01-25 09:36 | disposition home or self-care (01) ==
LOC: ANHIMG 09:37
PROVIDERS: PCP Family Medicine; Visit Provider Family Medicine
DX: Z12.31 Encounter for screening mammogram for malignant neoplasm of breast (principal); M85.89 Other specified disorders of bone density and structure, multiple sites; Z78.0 Asymptomatic menopausal state
CPT/HCPCS: 77063; 77067; 77080

== ENCOUNTER 2024-01-29 09:49 | Outpatient (CLI) | payer MEDICARE, OTHER, SELFPAY ==
--- NOTE | ~2024-01-29 | XR_ITS ---
EXAMINATION: XR foot RT 2V INDICATION: Right foot bruising TECHNIQUE: Two views of the right foot are obtained. COMPARISON: None available FINDINGS: There is dorsal soft tissue swelling the foot overlying the metatarsals. No underlying acut e osseous abnormality is identified. There is moderate to severe osteoarthritis at the hindfoot. Ther e is also moderate to severe osteoarthritis of multiple interphalangeal joints. IMPRESSION: 1. Dorsal soft tissue swelling of the foot overlying the metatarsals without evidence of underlying o sseous abnormality. 2. Polyarticular osteoarthritis. Reviewed, dictated and finalized at location L. ER SCALLOP IMPRESSION: 1. Dorsal soft tissue swelling of the foot overlying the metatarsals without ev idence of underlying osseous abnormality. 2. Polyarticular osteoarthritis.
== END 2024-01-29 09:50 | disposition home or self-care (01) ==
PROVIDERS: PCP Family Medicine; Visit Provider Family Medicine
DX: M19.071 Primary osteoarthritis, right ankle and foot (principal)
CPT/HCPCS: 73620

== ENCOUNTER 2024-07-22 14:31 | Outpatient (CLI) | payer MEDICARE, OTHER, SELFPAY ==
--- NOTE | ~2024-07-22 | XR_ITS ---
EXAMINATION: XR shoulder LT min 2V DATE: 07/22/2024 14:55 INDICATION: Left shoulder nerve pain. TECHNIQUE: 4 views of left shoulder were obtained. COMPARISON: None. FINDINGS: Bone alignment is normal. No fracture. There is mild osteoarthritis of glenohumeral joint a nd moderate osteoarthritis of acromioclavicular joint. There are changes of anterior fusion procedure in cervical spine. IMPRESSION: 1. Polyarticular osteoarthritis. Reviewed, dictated and finalized at location A.
== END 2024-07-22 14:32 | disposition home or self-care (01) ==
LOC: ANHIMG 14:35
PROVIDERS: PCP Family Medicine; Visit Provider Family Medicine
DX: M19.012 Primary osteoarthritis, left shoulder (principal)
CPT/HCPCS: 73030

== ENCOUNTER 2024-08-21 08:13 | Outpatient (CLI) | payer MEDICARE, OTHER, SELFPAY ==
[2024-08-21 09:06] LABS: Hematocrit 37.7 % (37.0-47.0); Hemoglobin 12.4 g/dL (12.0-15.0); Mean Corpuscular HGB Conc 32.9 g/dl (32-36); Mean Corpuscular Hemoglobin 29.9 pg (26-34); Mean Corpuscular Volume 90.8 fl (80-100); Mean Platelet Volume 10.6 fl (7.4-10.4); Platelet Count Result 168 k/mm3 (150-375); Red Blood Count 4.15 M/mm3 (4.2-5.4); Red Cell Distribution Width 13.9 % (11.5-14.5); White Blood Count 5.4 K/mm3 (4.5-10.0)
[2024-08-21 09:10] LABS: Add Urine Microscopic? NO; Appearance Urine Clear (Clear); Bilirubin Urine Negative (Negative); Blood Urine Negative (Negative); Color Urine Yellow (Yellow); Glucose Urine UA Negative (Negative); Ketones Urine Negative (Negative); Leukocyte Esterase Ur Negative LEU/UL (Negative); Nitrate Urine Negative (Negative); Protein Urine Negative (Negative); Specific Grav Ur 1.013 (1.001-1.035); Urobilinogen Urine 0.2 mg/dL (<2.0); pH Urine 5.5 (5.0-9.0)
[2024-08-21 09:17] LABS: Alanine Aminotransferase 22 U/L (6-35); Albumin Level 4.3 g/dL (3.5-5.1); Alkaline Phosphatase 105 U/L (38-126); Anion Gap 9 mmol/L (4-12); Aspartate Amino Transferase 31 U/L (14-36); Bilirubin,Total 0.9 mg/dL (0.2-1.3); Blood Urea Nitrogen 19 mg/dL (7-17); Calcium 9.1 mg/dL (8.4-10.2); Carbon Dioxide 24 mmol/L (22-30); Chloride 103 mmol/L (98-107); Cholesterol 143 mg/dL (0-200); Estimated Glomerular Filt Rate 55; Glucose 90 mg/dL (65-110); HDL Direct 46 mg/dL; Potassium 4.4 mmol/L (3.4-5.0); Sodium 136 mmol/L (137-145); Triglycerides 136 mg/dL (<150)
[2024-08-21 09:28] LABS: LDL Cholesterol Direct 58 mg/dL
[2024-08-21 09:32] LABS: Hemoglobin A1C 5.3 % (<5.7)
[2024-08-21 09:54] LABS: Vitamin D 25 Hydroxy 64.9 ng/mL
== END 2024-08-21 08:14 | disposition home or self-care (01) ==
LOC: ANHLAB 08:18
PROVIDERS: PCP Family Medicine; Visit Provider Family Medicine
DX: E05.90 Thyrotoxicosis, unspecified without thyrotoxic crisis or storm (principal); E78.5 Hyperlipidemia, unspecified; E55.9 Vitamin D deficiency, unspecified; I12.9 Hypertensive chronic kidney disease with stage 1 through stage 4 chronic kidney disease, or unspecified chronic kidney disease; N18.30 Chronic kidney disease, stage 3 unspecified; R73.01 Impaired fasting glucose
CPT/HCPCS: 36415; 80053; 80061; 81003; 82306; 83036; 84443; 85027

== ENCOUNTER 2024-12-22 13:30 | Outpatient (CLI) | payer MEDICARE, OTHER, SELFPAY ==
[2024-12-22 14:00] LABS: Add Urine Microscopic? NO; Appearance Urine Clear (Clear); Bilirubin Urine Negative (Negative); Blood Urine Negative (Negative); Color Urine Yellow (Yellow); Glucose Urine UA Negative (Negative); Ketones Urine Negative (Negative); Leukocyte Esterase Ur Negative LEU/UL (Negative); Nitrate Urine Negative (Negative); Protein Urine Negative (Negative); Specific Grav Ur 1.019 (1.001-1.035); Urobilinogen Urine 0.2 mg/dL (<2.0); pH Urine 6.5 (5.0-9.0)
== END 2024-12-22 13:31 | disposition home or self-care (01) ==
PROVIDERS: PCP Family Medicine; Visit Provider Physician Assistant Medical
DX: R30.0 Dysuria (principal); R35.0 Frequency of micturition
CPT/HCPCS: 81003; 87086

== ENCOUNTER 2024-12-23 08:33 | Outpatient (CLI) | payer MEDICARE, OTHER, SELFPAY ==
--- NOTE | ~2024-12-23 | CT_ITS ---
EXAMINATION: CT abdomen pelvis w con DATE: 12/23/2024 09:10 INDICATION: Left lower quadrant pain TECHNIQUE: Computed tomography (CT) of the abdomen and pelvis was performed with 100 mL Omnipaque-350 intravenous contrast. Automated exposure control and iterative reconstruction technique were employe d. The dose-length product was 925.62 mGy-cm. COMPARISON: None FINDINGS: Lung bases are clear. Heart size is normal. No pericardial or pleural effusion. Mild dilation of the common bile duct to 10 mm which is within normal limits post cholecystectomy with surgical clips the gallbladder fossa. Liver, spleen, pancreas, bilateral adrenal glands and right kidney are normal. Cou ple low-attenuation 5 mm cyst in the left kidney. Normal appendix. There are few scattered colonic di verticula without adjacent inflammatory stranding to suggest diverticulitis. Bladder, uterus and bila teral adnexa are unremarkable. No free intraperitoneal gas or fluid. No pathologically enlarged abdom inal or pelvic lymphadenopathy. Left total hip arthroplasty. L4 laminectomy and partial L3 laminectom y with combined instrumented L3-L5 anterior and posterior spinal fusion with body bone graft cages an d bilateral vertical sherrill and pedicle screw fixation. IMPRESSION: 1. No acute intra-abdominal/pelvic process. 2. Mild diverticulosis. 3. Status post cholecystectomy, left total hip arthroplasty and instrumented L3-L5 anterior and poste rior spinal fusion. Reviewed, dictated and finalized at location B. FACTURING ACCOUNTANT IMPRESSION: 1. No acute intra-abdominal/pelvic process. 2. Mild diverticulosis. 3. Status post cholecystectomy, left total hip arthroplasty and instrumented L3 -L5 anterior and posterior spinal fusion.
--- OUTSIDE RECORDS SUMMARY | 2024-12-23 08:49 | XMS_ITS ---
Author Organization [facility] As [employer] Address [address] [facility] [address] [place] [address] Care Team Providers Care Registered Nurse Cardiac Name Role Phone Valente Dockery MD Primary Care Provider Unavaila Apolinar Mathur Unavailable [phone] Kasey Montalvo Unavailable [phone] REASON FOR VISIT anxiety, depression, trauma Medications Medication SIG (Take, Route, Frequency, Duration) Notes Start Date End Date Status Lisinopril 10 MG Oral for 90 Days Active Gabapentin 300 MG TAKE 1 CAPSULE BY MOUTH TWICE DAILY Oral for 90 Days Active Clobetasol Propionate 0.05 % External for 20 Days Active hydroCHLOROthiazide 12.5 MG Oral for 90 Days Active Atorvastatin Calcium 20 MG Oral for 90 Days Active DULoxetine HCl 60 MG 1 capsule Oral Once a day for 90 days Active Wegovy 1.7 MG/0.75ML 0.75 mL Subcutaneous Active Citalopram Hydrobromide 40 MG 1 tablet O ral Once a day for 90 days Active Citalopram Hydrobromide 40 MG TAKE 1 TAB LET BY MOUTH DAILY for 90 days Active DULoxetine HCl 60 MG TAKE 1 CAPSULE BY MOUTH DAILY for 90 Active Linzess 72 MCG Oral for 30 Days Active oxyCODONE-Acetaminophen 5-32 5 MG Oral for 7 Days Active ALPRAZolam ER 2 MG Oral for 90 Days Active traZODone HCl 100 MG TAKE 1 TABLET BY MO UTH DAILY Oral for 90 Days Active Social History Tobacco Use: Social History Observation Description Date Details (start date - stop date) Former Smoker NA - NA Sex Assigned At : Social History Observation Description Sex Assigned At Female Tobacco Control (Standard) Question Answer Notes How long has it been since you last smoked? Yania ter than 10 years Tobacco use: Former smoker AUDIT-C (Standard) Question Answer Notes Did you have a drink containing alcohol in the p ast year? 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 She reports he is overly focused on work. She is feeling lonely. He is very good with the grandchildren. Abraham herman actively listened to client and utilized a solution focued intervention to help client explore strrategies that could reduce her frustrations (marriage counseling, finding activities that help her to fell more fulfilled). Plan Of Treatment Next Appt Details Follow Up: 2 Weeks, Reason: therapy follow up Provider Name:Apolinar Kamryn Nichole , 02/02/2025 10:15:00 AM, [address], [facility] [address], [place], [address], Progress Notes * NILSA GRIFFITHSB:1955 (69 yo F)Acc No.[id number]:09/25/2024 Patient:?JULIETA GRIFFITHS Provider:?KASEY MONTALVO LCSW :1955???Age:69 Y???Sex:Female D ate:09/25/2024 Address:[address] [place], [place] [id number] Pcp:Valente Dockery MD Data: * Time Tracker: * Date Start Time End Time Duration User Type Captured By Mode Notes 09/25/2024 09:00 AM 09:53 AM 00:53:00 Therapist Kasey Montalvoual * Chief Complaints: * ???1. Anxiety. 2. Depression . 3. Trauma. * HPI: ???History of Presenting Problem:?Psychotherapy?Kasey.?Client is here today for psychotherapy to treat anxiety, depression, and trauma issues.? Based on our session, I think the patient is making moderate progress.? At this time I do not recommend changes to the treatment plan.? I do not think the patient poses significant risk of harm to self or others at this time.? Discussed continued treatment with patient. ???Depression Screening:?ZAHRA-7 (2018 Edition)?Feeling nervous, anxious, or on edge?Not at all,?Not being able to stop or control worrying?Not at all,?Worrying too much about different things?Several days,?Trouble relaxing?Not at all,?Being so restless that it is hard to sit still?Not at all,?Becoming easily annoyed or irritable?Not at all,?Feeling afraid as if something awful might happen?Not at all,?Total ZAHRA-7 Score?1,?If you checked any problems, how difficult have they made it for you to do your work, take care of things at home, or get along with other people??Somewhat difficult,?Interpretation of Total?(0 to 4) No Anxiety.?Karnes-Suicide Severity Rating Scale:?Suicide Risk (CSRS-screener)?in the past one month Have you wished you were or wished you could go to sleep and not wake up??No,?in the past one month Have you actually had any thoughts of killing yourself??No.?Depression screening:?PHQ-9?Little interest or pleasure in doing things?Several days,?Feeling down, depressed, or hopeless?Several days,?Trouble falling or staying asleep, or sleeping too much?Not at all,?Feeling tired or having little energy?Not at all,?Poor appetite or overeating?Not at all,?Feeling bad about yourself or that you are a failure, or have let yourself or your family down?Not at all,?Trouble concentrating on things, such as reading the newspaper or watching television?Several days,?Moving or speaking so slowly that other people could have noticed; or the opposite, being so fidgety or restless that you have been moving around a lot more than usual?Not at all,?Thoughts that you would be better off or of hurting yourself in some way?Not at all,?Total Score?3,?Interpretation?Minimal Depression.? * Behavioral History: ???Past psychiatric Hospitalization:No.?History of suicidal attempt?:No.? * Family History:?Mother: Fami ly history of sudden cardiac .?Brother: Alcohol abuse .?Sister: Anxiety disorder .?Son: Drug overdose , Substance abuse .? * Social History:?Tobacco Use:?Tobacco Control (Standard)?How long has it been since you last smoked??Greater than 10 years,?Tobacco use:?Former smoker.?Migrated Social History:?Migrated Social History: Alcohol Intake: Occasional 10/21/2018,Tobacco Years: Former smoker 03/07/2021,Smoking Status: 0 11/30/2023. ???Drug/Alcohol:?AUDIT-C (Standard)?Did you have a drink containing alcohol in the past year??No,?Points?0,?Interpretation?Negative.?Miscellaneous:?Advance Care Planning?Are you your own decision-maker?Yes,?Do you have Power of [employer] Consultant for Health or Medical??Yes.? * Medications:?Taking Atorvast atin Calcium 20 MG Tablet Oral , Taking hydroCHLOROthiazide 12.5 MG Tablet Oral , Taking Lisinopril 10 MG Tablet Oral , Taking Gabapentin 300 MG Capsule TAKE 1 CAPSULE BY MOUTH TWICE DAILY Oral , Taking Clobetasol Propionate 0.05 % Cream External , Taking Linzess 72 MCG Capsule Oral , Taking oxyCODONE-Acetaminophen 5-325 MG Tablet Oral , Taking ALPRAZolam ER 2 MG Tablet Extended Release 24 Hour Oral , Taking traZODone HCl 100 MG Tablet TAKE 1 TABLET BY MOUTH DAILY Oral , Taking DULoxetine HCl 60 MG Capsule Delayed Release Particles TAKE 1 CAPSULE BY MOUTH DAILY , Taking Citalopram Hydrobromide 40 MG Tablet TAKE 1 TABLET BY MOUTH DAILY , Taking Wegovy 1.7 MG/0.75ML Solution Auto- injector 0.75 mL Subcutaneous , Taking Citalopram Hydrobromide 40 MG Tablet 1 tablet Oral Once a day , Taking DULoxetine HCl 60 MG Capsule Delayed Release Particles 1 capsule Oral Once a day , Medication List reviewed and reconciled with the patient * Examination: ???Psychiatry: ???Client is casually groomed and oriented X 5. Assessment: * Assessment: 1.?MDD (major depressive dis order), recurrent severe, without psychosis - F33.2 (Primary)???2.?Generalized anxiety disorder - F41.1???3.?Chronic posttraumatic stress disorder - F43.12??? Plan: * Treatment: * Procedure Codes:?09817 PSYCH OTHERAPY W/PATIENT 60 MINUTES * Follow Up:?2 Weeks (Reason: therapy follow up) * Billing Information: * Visit Code:? * Procedure Codes:? 41055 PSYCHOTHERAPY W/PATIENT 60 MINUTES. * Sign off status: Completed Signatures: No Ad Hoc Signature Added true * Provider:?KASEY MONTALVO LCSW Date:? Generated for Basim rodriguez/Guy/Mervatitting on:?12/23/2024 08:49 AM BODY CORPORATE MANAGER History and Physical Notes * HPI (History of Present Illness) Category Sub-Category Detail Notes Category Not es History of Presenting Problem Psychotherapy Kasey Client is here today for psychotherapy to treat anxiety, depression, and trauma issues. Based on our session, I think the patient is making moderate progress. At this time I do not recommend changes to the treatment plan. I do not think the patient poses significant risk of harm to self or others at this time. Discussed continued treatment with patient. Depression screening PHQ-9 Little interest or pleasure in doing things: Several days Feeling down, depressed, or hopeless: Se veral days Trouble falling or staying asleep, or sl eeping too much: Not at all Feeling tired or having little energy: N ot at all Poor appetite or overeating: Not at all Feeling bad about yourself o r that you are a failure, or have let yourself or your family down: Not at all Trouble concentrating on thi ngs, such as reading the newspaper or watching television: Several days Moving or speaking so slowly that other people could have noticed; or the opposite, being so fidgety or restless that you have been moving around a lot more than usual: Not at all Thoughts that you would be b wilfredo off or of hurting yourself in some way: Not at all Total Score: 3 Interpretation: Minimal Depression Depression Screening ZAHRA-7 (2018 Edition) Feelin g nervous, anxious, or on edge: Not at all Not being able to stop or control worryi ng: Not at all Worrying too much about different things : Several days Trouble relaxing: Not at all Being so restless that it is hard to sit still: Not at all Becoming easily annoyed or irritable: No t at all Feeling afraid as if something awful ben ht happen: Not at all Total ZAHRA-7 Score: 1 If you checked any problems, how difficult have they made it for you to do your work, take care of things at home, or get along with other people?: Somewhat difficult Interpretation of Total: (0 to 4) No Anx iety Karnes-Suicide Severity Rating Scale Suicide Risk (CSRS-screener) in the past one month Have you wished you were or wished you could go to sleep and not wake up?: No in the past one month Have y ou actually had any thoughts of killing yourself?: No Examination Category Sub-Category Detail Notes Category Not es Psychiatry Client is suraj thrasher groomed and oriented X 5
--- OUTSIDE RECORDS SUMMARY | 2024-12-23 08:49 | XMS_ITS | Patient Health Record ---
Author Organization [facility], Address [address] [place] [address] Care Team Providers Care Roofer Applicator Name Role Phone DockeryValente holly Primary Care Provider Jose J Martinez Unavailable [phone] Valdo Walker Unavailable Unavailable ALLERGIES Allergen (clinical drug ingredient) Drug/Non Drug Allergy documented on EMR Reaction Allergy Type Onset Date Status Penicillin (Allergy only) throat and tongue swell, rash, SOB Drug Allergy Active REASON FOR REFERRAL No Information MEDICATIONS Medication SIG (Take, Route, Frequency, Duration) Notes Start Date End Date Status Lisinopril Active hydroCHLOROthiazide Active Abilify Not-Taking traZODone HCl QHS Active ASA Active Cymbalta Active Lipitor Active Baclofen Active Ibuprofen Active Gabapentin 300 MG TAKE 1 CAPSULE BY MOUTH TWICE DAILY for 30 Not-Taking ALPRAZolam ER Active methylPREDNISolone 4 MG as directed Orally on package for 6 days 07/25/2023 Not-Taking Percocet 5/325mg BID PRN/pt has both Active oxyCODONE-Acetaminophen 7.5-325 MG 1 tablet as needed Orally every 4-6 hrs for 7 days prn/patient has both 08/06/2023 Not-Taking Tylenol Extra Strength Active Meloxicam 15 MG 1 tablet once daily oral with food for 90 days 03/21/2023 Not-Taking CeleXA Active PROBLEMS Problem Type ICD Code Onset Dates Problem Status W/U Status Risk SNOMED Code Notes Problem Spondylolisthesis (M43.10) Active confirmed Spondylolisthes is (114758916) Problem Lumbar herniated disc (M51.26) Active confirmed Displacement o f lumbar intervertebral disc without myelopathy (33007688) Problem Degenerative spondylolisthesis (M43.10) Active confirmed 7194762 Problem Herniated intervertebral disc of lumbar spine (M51.26) Active confirmed Displacement of lumbar intervertebral disc without myelopathy (62517747) Problem DDD (degenerative disc disease), cervical (M50.30) Active confirmed Cervical d isc disorder (006839674) Problem Other cervical disc degeneration at C6-C7 level (M50.323) Active confirmed Degeneration of cervical intervertebral disc (86244268) Problem Facet arthropathy, 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) Active confirmed Arthropat hy of cervical spine facet joint (disorder) (071666096) Problem Degenerative disc disease, cervical (M50.30) Active confirmed Degeneration of cervical intervertebral disc (42175813) Problem HNP (herniated nucleus pulposus), cervical (M50.20) Active confirmed Displaceme nt of cervical intervertebral disc without myelopathy (03123255) Problem Herniation of intervertebral disc at C6-C7 level (M50.223) Active confirmed Displacement of cervical intervertebral disc without myelopathy (89469163) Encounters Encounter Location Date Provider Diagnosis [facility], [address] [address] 07/16/2024 Jose J Steel [facility], [address] [address] 07/30/2024 Jose J Steel PLAN OF TREATMENT Pending Test Test Name Order Date CBC With Differential/Platelet 8 CBC With Differential/Platelet 3 CBC With Differential/Platelet 0 PT AND PTT 11/07/2018 PT AND PTT 07/04/2023 PT AND PTT 10/14/2020 Chem-Comprehensive 10/14/2020 Chem-Comprehensive 11/07/2018 Chem-Comprehensive 07/04/2023 Insurance Providers Payer Name Payer Address Payer Phone Subscriber Number Group Number Insured Name Patient Relationship to Insured Coverage Start Date Coverage End Date Medicare Mo [address] [address] [place] [address] [id number] Brittnee Ty Self - patient is the insured [employer] [address] [place] [address] [id number] Barry Self - patient is the insured MEDICAL (GENERAL) HISTORY Medical History History ICD Code Hypertension Asthma Osteopenia/osteoporosis Arthritis Neck pain Back pain Numbness in hands Herniated disc Spinal stenosis GERD Gastritis Depression Anxiety Denies being hospitalized for psychiatri c condition Denies h/o drug/chemical dependency Surgical History Surgery Date(Month/Year) Cervical fusion 2003 Left TKR 2005 Left THR 2013 L5-S1 fusion 2018 L3-4 LDL, L3-4 TLIF, L3-5 hardware 2019 C4-5 ANNALISA, C4-5 exploration o f fusion, C6-7 ACDF, C5-C7 anterior plating 08/06/2023 Hospitalization History Reason Date(Month/Year) Prior surgeries
--- OUTSIDE RECORDS SUMMARY | 2024-12-23 08:51 | XMS_ITS | Continuity of Care Document ---
Author Organization [id number] - [facility] Address [address] [place] [address] Phone Care Team Providers Care Pharmacovigilance Safety Expert Name Role Phone Ryne Matute DO Unavailable Unavailable Procedures Procedure Date CARDIOVASCULAR STRESS TEST SUPERVISION O NLY CARDIOVASCULAR STRESS TEST I&R ONLY Advance Directives Directive Yes / No Effective Date File Name No Information Encounters Encounter Description Practice Location Reason(s) For Visit Diagnoses Date Provider Providers Copied on Encounter [id number] - [facility], [address], [place], [address], tel:[phone] [facility] No Information Giovani Michele. [address], [place], [place], [id number]. tel:[phone] Referring Provider: Ernst Kemp, [address] [place] [address] [address], [place], [address] . tel:[phone] Family History Family Member Type Diagnosis Age At Onset No Information Payers Payer name Insurance type Covered libertarian ID Authorkaighada [id number](s) [id number] Social History Type Description Quantity Date Captured Comments Sex Female Smoking Status No Information Chief Complaint And Reason For Visit No Information Reason For Referral Reason For Referral No Information History Of Present Illness Encounter Date Complaint History Of Prese nt Illness No Information Functional Status Date Functional Assessmen t No Information Instructions Date Instruction Additional Infor mation No Information Assessments Type Assessment Date No Information Patient Care Teams Name Effective Dates (start - stop) Status Members No Information
--- OUTSIDE RECORDS SUMMARY | 2024-12-23 08:51 | XMS_ITS | Patient Health Summary ---
Author Organization [facility] Address [address] [place] [address] Care Team Providers Care Herpetologist Name Role Phone Unavailable Primary Care Provider Unavailabl e Note from [facility],non-owned Affiliates and Associated Physician Practices is amultiple site organization consisting of ambulatory clinics and hospital sitesin [place], [place], [place] and [place]. This disclosure is being madepursuant to the Care Everywhere program and may not contain all information available regarding this patient. Last updated 18.[facility] Allergies * Penicillins(Anaphylaxis) Medications * Be aware that medications may not be up to date on this document. Alwaysverify current medications with the patient. * lisinopril (PRINIVIL; ZESTRIL) 20 MG tablet daily with breakfast. Instructed to take AM of surgery * meloxicam (MOBIC) 15 MG tablet Take 15 mg by mouth daily with breakfast. Has stopped for the surgery * citalopram (CELEXA) 20 MG tablet Take 20 mg by mouth daily with breakfast. * multivitamin daily tablet Take 1 Tab by mouth daily. * fish oil/omega-3 fatty acids (OMEGA-3 FISH OIL) 1000 MG capsule Take 1000 mg by mouth daily. Patient continues to take * alprazolam (XANAX) 2 MG tablet Take 2 mg by mouth daily with breakfast. Takes extended release * hydrocodone-acetaminophen (NORCO) 5-325 MG tablet(Started 12/30/2009) Take 1 Tab by mouth every 4 hours as needed for Pain. * hydrocodone-acetaminophen (NORCO) 5-325 MG tablet(Started 12/30/2009) Take 1 Tab by mouth every 4 hours as needed for Pain. * BIOTENE/CALCIUM MT by Mouth/Throat route. As directed Active Problems Problem Noted Date Diagnosed Date Preoperative examination 12/15/2009 Left arm numbness 11/29/2009 Social History Tobacco Use Types Packs/Day Years Used Date Smoking Tobacco: Every Day Cigarettes 0.5 30 Comments: trying to quit Alcohol Use Standard Drinks/Week Comments No 0 (1 standard drink = 0.6 oz pur e alcohol) Sex and Gender Information Value Date Recorded Sex Assigned at Not on file Gender Identity Not on file Sexual Orientation Not on file Last Filed Vital Signs Vital Sign Reading Time Taken Comments Blood Pressure 132/83 12/30/2009 6:05 AM DOCTOR OF NATUROPATHIC MEDICINE Pulse 77 12/30/2009 6:05 AM DOCTOR OF NATUROPATHIC MEDICINE Temperature 36.3 ??C (97.4 ??F) 12/30/2009 6:05 AM CS T Respiratory Rate 16 12/30/2009 6:05 AM DOCTOR OF NATUROPATHIC MEDICINE Oxygen Saturation 95% 12/30/2009 6:05 AM DOCTOR OF NATUROPATHIC MEDICINE Inhaled Oxygen Concentration - - Weight 100.5 kg (221 lb 9 oz) 12/30/2009 6:05 AM DOCTOR OF NATUROPATHIC MEDICINE Height 154.9 cm (5' 1 ) 12/30/2009 6:05 AM DOCTOR OF NATUROPATHIC MEDICINE Body Mass Index 41.86 12/30/2009 6:05 AM DOCTOR OF NATUROPATHIC MEDICINE Procedures * CARDIAC EKG ORDER(Performed 01/18/2010) * XR FINGER(S) LEFT(Performed 01/03/2010) Performed for Pain in Soft Tissues of Limb * CARDIAC EKG ORDER(Performed 12/31/2009) * EMG(Performed 11/24/2009) * IMAGING/RADIOLOGY/XRAY RESULTS ORDER(Performed 11/12/2009) Results * CARDIAC EKG ORDER (01/18/2010 4:13 PM DOCTOR OF NATUROPATHIC MEDICINE) Only the most recent of2 resultswithin the time period is included. Narrative 01/18/2010 4:13 PM DOCTOR OF NATUROPATHIC MEDICINE Ordered by an unspecified provider. Transcriptions Document, Scanned - 12/30/2009 12:00 AM DOCTOR OF NATUROPATHIC MEDICINE Scanned Document CARDIAC SERVICES ORD ERABLES * XR FINGER(S) LEFT (01/03/2010 10:02 AM DOCTOR OF NATUROPATHIC MEDICINE) Anatomical Region Laterality Modality Upper Extremity, Wrist / Hand Ra diographic Imaging 01/03/2010 1:01 PM DOCTOR OF NATUROPATHIC MEDICINE Narrative 01/03/2010 1:49 PM DOCTOR OF NATUROPATHIC MEDICINE Three views left fifth finger Clinical Indication: Left fifth finger pain. Findings: There is soft tissue swelling. There is osteopenia. There is no acute fracture, dislocation, or significant degenerative disease. Procedure Note Blessing Tabares MD - 01/03/2010 Three views left fifth finger Clinical Indication: Left fifth finger pain. Findings: There is soft tissue swelling. There is osteopenia. There is no acute fracture, dislocation, or significant degenerative disease. Cheryl Khan MD DIAGNOSTIC IMAGING O RDERABLES * EMG (11/24/2009) Valdo Maddox MD NEUROLOGY ORDERABLES * IMAGING/RADIOLOGY/XRAY RESULTS ORDER (11/12/2009) Anatomical Region Laterality Modality Other Valdo Maddox MD IMAGING
--- OUTSIDE RECORDS SUMMARY | 2024-12-23 08:51 | XMS_ITS | Referral Summary ---
Author Organization [facility] Address [address] [place] [address] Care Team Providers Care Treating Plant Supervisor Name Role Phone Unavailable Primary Care Provider Unavailabl e Source Comments [facility],non-owned Affiliates and Associated Physician Practices is amultiple site organization consisting of ambulatory clinics and hospital sitesin [place], [place], [place] and [place]. This disclosure is being madepursuant to the Care Everywhere program and may not contain all information available regarding this patient. Last updated 18.[facility] Allergies Active Allergy Reactions Criticality Noted Date Comments Penicillins Anaphylaxis 11/29/2009 Medications * Be aware that medications may not be up to date on this document. Alwaysverify current medications with the patient. Medication Sig Dispensed Refills Start Date End Date Status lisinopril (PRINIVIL; ZESTRIL) 20 MG tablet daily with breakfast. Instructed to take AM of surgery Active meloxicam (MOBIC) 15 MG tablet Take 15 mg by mouth daily with breakfast. Has stopped for the surgery Active citalopram (CELEXA) 20 MG tablet Take 20 mg by mouth daily with breakfast. Active multivitamin daily tablet Take 1 Tab by mouth daily. Active fish oil/omega-3 fatty acids (OMEGA-3 FISH OIL) 1000 MG capsule Take 1000 mg by mouth daily. Patient continues to take Active alprazolam (XANAX) 2 MG tablet Take 2 mg by mouth daily with breakfast. Takes extended release Active hydrocodone-acetamin ophen (NORCO) 5-325 MG tablet Take 1 Tab by mouth every 4 hours as needed for Pain. 30 0 12/30/2009 Active hydrocodone-acetamin ophen (NORCO) 5-325 MG tablet Take 1 Tab by mouth every 4 hours as needed for Pain. 30 0 12/30/2009 Active BIOTENE/CALCIUM MT by Mouth/Throat route. As directed Active Active Problems Problem Noted Date Diagnosed Date [...] Comments Blood Pressure 132/83 12/30/2009 6:05 AM UPPER CASER Pulse 77 12/30/2009 6:05 AM UPPER CASER Temperature 36.3 ??C (97.4 ??F) 12/30/2009 6:05 AM CS T Respiratory Rate 16 12/30/2009 6:05 AM UPPER CASER Oxygen Saturation 95% 12/30/2009 6:05 AM UPPER CASER Inhaled Oxygen Concentration - - Weight 100.5 kg (221 lb 9 oz) 12/30/2009 6:05 AM UPPER CASER Height 154.9 cm (5' 1 ) 12/30/2009 6:05 AM UPPER CASER Body Mass Index 41.86 12/30/2009 6:05 AM UPPER CASER Plan of Treatment Not on file
--- OUTSIDE RECORDS SUMMARY | 2024-12-23 08:51 | XMS_ITS ---
Author Organization [facility] Address [address] [facility] [address] [place] [address] Care Team Providers Care Stockroom Selector Name Role Phone Valente Dockery Primary Care Provider Jose J Martinez Unavailable [phone] Valdo Walker Unavailable Unavailable Encounters Encounter Location Date Provider Diagnosis [facility] [address] [facility] [address] [place] [address] 11/08/2023 Jose J Steel PLAN OF TREATMENT No Information
--- OUTSIDE RECORDS SUMMARY | 2024-12-23 08:51 | XMS_ITS | Encounter Summary ---
Author Organization [facility] Address [address] [place] [address] Care Team Providers Care Glue Spreader Name Role Phone Panfilo Paige MD Primary Care Provider [phone] Encounter Details Date Type Department Care Team (Late st Contact Info) Description 11/10/2009 [facility] Visit [facility]NAL [facility] DEPT Unknown, Provider Social History Tobacco Use Types Packs/Day Years Used Date Smoking Tobacco: Never Assessed Sex and Gender Information Value Date Recorded Sex Assigned at Not on file Gender Identity Not on file Sexual Orientation Not on file documented as of this encounter Plan of Treatment Not on file documented as of this encounter Visit Diagnoses Not on filedocumented in this encounter Care Teams Glue Spreader Relationship Specialty Start Date End Date Panfilo Paige MD [address] [place] [id number] PCP - General 11/29/09 12/01/09 documented as of this encounter
--- OUTSIDE RECORDS SUMMARY | 2024-12-23 08:51 | XMS_ITS ---
Author Organization [facility] Address [address] [facility] [address] [place] [address] Care Team Providers Care Tapper Balance Wheel Screw Hole Name Role Phone Valente Dockery Primary Care Provider Jose J Martinez Unavailable [phone] Valdo Walker Unavailable Unavailable REASON FOR VISIT cervical Encounters Encounter Location Date Provider Diagnosis [facility] [address] [facility] [address] [place] [address] 07/30/2024 Jose J Steel PLAN OF TREATMENT No Information
--- OUTSIDE RECORDS SUMMARY | 2024-12-23 08:51 | XMS_ITS | Clinical Summary ---
Author Organization [facility] Address [address] [place] [address] Care Team Providers Care Binding Printer Name Role Phone Unavailable Primary Care Provider Unavailabl e Source Comments [facility],non-owned Affiliates and Associated Physician Practices is amultiple site organization consisting of ambulatory clinics and hospital sitesin [place], [place], [place] and [place]. This disclosure is being madepursuant to the Care Everywhere program and may not contain all information available regarding this patient. Last updated 18.[facility] Allergies Active Allergy Reactions Criticality Noted Date [...] Preoperative examination 12/15/2009 Left arm numbness 11/29/2009 Family History Medical History Relation Name Comments Heart Failure Father Hypercholesterolemia Father Hypertension Father Arthritis - Rheumatoid Maternal Grandmother Heart Failure Maternal Grandmother Arthritis - Osteo Mother Arthritis - Rheumatoid Mother Heart Failure Mother Asthma Sister 2 Relation Name Status Comments Brother Alive Father Maternal Grandmother Mother Sister 1 Alive Sister 2 Social History Tobacco Use Types Packs/Day Years [...] Comments Blood Pressure 132/83 12/30/2009 6:05 AM GLASSWARE FINISHER Pulse 77 12/30/2009 6:05 AM GLASSWARE FINISHER Temperature 36.3 ??C (97.4 ??F) 12/30/2009 6:05 AM CS T Respiratory Rate 16 12/30/2009 6:05 AM GLASSWARE FINISHER Oxygen Saturation 95% 12/30/2009 6:05 AM GLASSWARE FINISHER Inhaled Oxygen Concentration - - Weight 100.5 kg (221 lb 9 oz) 12/30/2009 6:05 AM GLASSWARE FINISHER Height 154.9 cm (5' 1 ) 12/30/2009 6:05 AM GLASSWARE FINISHER Body Mass Index 41.86 12/30/2009 6:05 AM GLASSWARE FINISHER Plan of Treatment Health Maintenance Due Date Last Done Comments BONE DENSITY TESTING 1955 COLOGUARD (AGES 45-75) - COL ON CA SCREENING 1956 COLON MONITORING 1956 COLONOSCOPY - COLON CA SCREENING 1956 CT COLONOGRAPHY - COLON CA SCREENING 1955 Colorectal Cancer Screening 1956 FIT - COLON CA SCREENING 1956 FLEX SIG - COLON CA SCREENING 1956 LIPID TESTING 1956 MAMMOGRAM 1956 HEPATITIS C SCREENING 04/19/1974 DTAP/TDAP/TD VACCINES (1 - Tdap) 1975 PNEUMOCOCCAL VACCINE 50+ (1 of 2 - PCV) 1975 ZOSTER VACCINE (1 of 2) 2006 Respiratory Syncytial Virus (RSV) Vaccine Pt: or over 60 yrs (1 - Risk 60-74 years 1-dose series) 2016 COVID-19 VACCINE (2023-2 5 season) 2024 INFLUENZA VACCINE (#1) 2024 DEPRESSION SCREENING 11/26/2024 HEPATITIS B VACCINE Aged Out No longe r eligible based on patient's age to complete this topic HIB VACCINE Aged Out No longer eligi ble based on patient's age to complete this topic HPV VACCINE Aged Out No longer eligi ble based on patient's age to complete this topic MENINGOCOCCAL (Group B) VACCINE Aged Out No longer eligible based on patient's age to complete this topic MENINGOCOCCAL VACCINE Aged Out No carlos gilberto eligible based on patient's age to complete this topic
--- OUTSIDE RECORDS SUMMARY | 2024-12-23 08:52 | XMS_ITS ---
Author Organization [facility] Address [address] [facility] [[email or web address] [address] [place] [address] Care Team Providers Care Theater Company Producer Name Role Phone Valente Dockery Primary Care Provider Jose J Martinez Unavailable [phone] Valdo Walker Unavailable Unavailable REASON FOR VISIT cervical Encounters Encounter Location Date Provider Diagnosis [facility] [address] [facility] [[email or web address] [address] [place] [address] 07/16/2024 Jose J Steel PLAN OF TREATMENT No Information
--- OUTSIDE RECORDS SUMMARY | 2024-12-23 08:52 | XMS_ITS | Encounter Summary ---
Author Organization [facility] Care Team Providers Care Concrete Pavement Installer Name Role Phone No, Physician Primary Care Provider [phone] Valente Dockery MD Primary Care Provider Encounter Details Date Type Department Care Team (Latest Contact Info) Description 02/21/2017 Orders Only [facility] ProviderAlonso MD [address] [place] [address] Social History Tobacco Use Types Packs/Day Years Used Date Smoking Tobacco: Never Assessed Comments Unknown Sex and Gender Information Value Date Recorded Sex Assigned at Not on file Legal Sex Female 8:22 AM CUT TO LENGTH OPERATOR Gender Identity Not on file Sexual Orientation Not on file documented as of this encounter Plan of Treatment Not on file documented as of this encounter Procedures Procedure Name Priority Date/Time Associated Diagnosis Comments PROCEDURE - RESULT 02/21/2017 12 :00 AM CDT documented in this encounter Results * PROCEDURE - RESULT (02/21/2017 12:00 AM CDT) Narrative 02/21/2017 12:00 AM CDT Ordered by an unspecified provider. Historical Provider Final Res ult documented in this encounter Visit Diagnoses Not on filedocumented in this encounter Care Teams Concrete Pavement Installer Relationship Specialty Start Date End Date No, Physician PCP - General 11/28/17 12/06/17 Valente Dockery MD [address] [address] PCP - General Family Medicine 12/07/17 documented as of this encounter
--- OUTSIDE RECORDS SUMMARY | 2024-12-23 08:52 | XMS_ITS | Clinical Summary ---
Author Organization [facility] Address [address] [place] [address]. [place] [address] [place] [address] Care Team Providers Care Coater Helper Name Role Phone Panfilo Dockery MD Primary Care Provider Social History Tobacco Use Types Packs/Day Years Used Date Smoking Tobacco: Never Assessed Comments Unknown Sex and Gender Information Value Date Recorded Sex Assigned at Not on file Legal Sex Female 2:57 AM CDT Gender Identity Not on file Sexual Orientation Not on file Plan of Treatment Health Maintenance Due Date Last Done Comments Colorectal Cancer Screening Colonoscopy (10 Years) 1956 Hepatitis C 1974 DTaP, Tdap and Td Vaccines ( 1 - Tdap) 1975 Mammogram Screening 1996 Zoster Vaccines (1 of 2) 2006 Dexa Scan (General) 2021 Pneumococcal Vaccine: 65+ Ye ars (1 of 1 - PCV) 2021 COVID-19 Vaccine ( - 2023-2 5 season) 2024 Influenza Adult (#1) 2024 RSV Immunization or 60+ Years (1 - 1-dose 75+ series) 2031 Meningococcal B Vaccine Aged Out No l onger eligible based on patient's age to complete this topic Meningococcal Vaccine Aged Out No carlos gilberto eligible based on patient's age to complete this topic RSV Immunizations Under 20 Months Aged Out No longer eligible based on patient's age to complete this topic Care Teams Coater Helper Relationship Specialty Start Date End Date Panfilo Dockery MD [address] [place] [id number] PCP - General 03/14/12
--- OUTSIDE RECORDS SUMMARY | 2024-12-23 08:52 | XMS_ITS ---
Author Organization [facility] As [email or web address] Address [address] [facility] [address] [place] [address] Care Team Providers Care Chief Commercial Officer Name Role Phone Valente Dockery MD Primary Care Provider Unavaila Renata Mathur Unavailable [phone] Allergies Allergen (clinical drug ingredient) Drug/Non Drug Allergy documented on EMR Reaction Allergy Type Onset Date Status Substance with penicillin structure and antibacterial mechanism of action (substance) Penicillins Unknown Drug Allergy 02/15/2024 Active REASON FOR VISIT 1 Follow up anxiety, phq less than 5, PSYCHOTHERAPY W/PATIENT W/E M Medications Medication SIG (Take, Route, Frequency, Duration) Notes Start Date End Date Status Lisinopril 10 MG Oral for 90 Days Active hydroCHLOROthiazide 12.5 MG Oral for 90 Days Active Clobetasol Propionate 0.05 % External for 20 Days Active Gabapentin 300 MG TAKE 1 CAPSULE BY MOUTH TWICE DAILY Oral for 90 Days Active Atorvastatin Calcium 20 MG Oral for 90 Days Active Wegovy 1.7 MG/0.75ML 0.75 mL Subcutaneous Active Citalopram Hydrobromide 40 MG 1 tablet O ral Once a day for 90 days Active DULoxetine HCl 60 MG 1 capsule Oral Once a day for 90 days Active Citalopram Hydrobromide 40 MG TAKE 1 TAB LET BY MOUTH DAILY for 90 days Active oxyCODONE-Acetaminophen 5-32 5 MG Oral for 7 Days Active Linzess 72 MCG Oral for 30 Days Active traZODone HCl 100 MG TAKE 1 TABLET BY MO UTH DAILY Oral for 90 Days Active ALPRAZolam ER 2 MG Oral for 90 Days Active DULoxetine HCl 60 MG TAKE 1 CAPSULE BY MOUTH DAILY for 90 Active Social History Tobacco Use: Social History Observation Description Date Details (start date - stop date) Former Smoker NA - NA Sex Assigned At : Social History Observation Description Sex Assigned At Female Tobacco Control (Standard) Question Answer Notes How long has it been since you last smoked? Grea ter than 10 years Tobacco use: Former smoker AUDIT-C (Standard) Question Answer Notes Did you have a drink containing alcohol in the p ast year? No Points 0 Interpretation Negative Vital Signs Blood pressure systolic 136 mm Hg 09/24/20 24 Blood pressure diastolic 81 mm Hg 024 Heart Rate 85 /min 09/24/2024 Height 60.00 in 09/24/2024 Weight 201 lbs 09/24/2024 BMI 39.25 kg/m2 09/24/2024 Height-cm 152.40 cm 09/24/2024 Weight-kg 91.17 kg 09/24/2024 Encounters Encounter Location Date Provider Diagnosis [facility] [address] [facility] [address] [place] [address] 09/24/2024 Renata Parra Generalized anxiety disorder F41.1 ; Major depressive disorder, recurrent severe without psychotic features F33.2 and Post-traumatic stress disorder, chronic F43.12 Assessments Encounter Date Diagnosis (ICD Code) Assessment Notes Treatment Notes Treatment Clinical Notes Section Notes 09/24/2024 Generalized anxiety disorder (ICD-10 - F41.1) Family Stressors and Living Situation - Plan: - Encourage the patient to continue discussing her concerns with her therapist, Kasey. - Recommend exploring stress management techniques, such as deep breathing exercises, meditation, or yoga, to help cope with the current living situation. - Suggest setting boundaries and discussing expectations with her grandson and his girlfriend to facilitate a smoother living environment. Relationship with - Plan: - Encourage open communication with her about her feelings and expectations. - Recommend considering couples therapy to address relationship issues and improve communication. Grandson's ADHD - Plan: - Encourage the patient to discuss the importance of medication adherence with her grandson and the potential consequences of stopping treatment without medical supervision. - Recommend that the grandson consult with his primary care provider or psychiatrist to discuss his medication and any concerns he may have. 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 - Recommend that Valarie consult with her primary care provider or tube turner to address her diabetes management and pseudo seizures. Shoulder Surgery Recovery - Plan: - Continue to monitor the patient's progress and encourage her to follow her surgeon's recommendations for post-operative care and rehabilitation. Follow-up - Plan: - Schedule next appointment in two months, as agreed upon in session, or sooner if needed. 09/24/2024 Major depressive disorder, recurrent severe without psychotic features (ICD-10 - F33.2) Family Stressors and Living Situation - Plan: - Encourage the patient to continue discussing her concerns with her therapist, Kasey. - Recommend exploring stress management techniques, such as deep breathing exercises, meditation, or yoga, to help cope with the current living situation. - Suggest setting boundaries and discussing expectations with her grandson and his girlfriend to facilitate a smoother living environment. Relationship with - Plan: - Encourage open communication with her about her feelings and expectations. - Recommend considering couples therapy to address relationship issues and improve communication. Cameron's ADHD - Plan: - Encourage the patient to discuss the importance of medication adherence with her grandson and the potential consequences of stopping treatment without medical supervision. - Recommend that the grandson consult with his primary care provider or psychiatrist to discuss his medication and any concerns he may have. 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 - Recommend that Valarie consult with her primary care provider or tube turner to address her diabetes management and pseudo seizures. Shoulder Surgery Recovery - Plan: - Continue to monitor the patient's progress and encourage her to follow her surgeon's recommendations for post-operative care and rehabilitation. Follow-up - Plan: - Schedule next appointment in two months, as agreed upon in session, or sooner if needed. 09/24/2024 Post-traumatic stress disorder, chronic (ICD-10 - F43.12) Family Stressors and Living Situation - Plan: - Encourage the patient to continue discussing her concerns with her therapist, Kasey. - Recommend exploring stress management techniques, such as deep breathing exercises, meditation, or yoga, to help cope with the current living situation. - Suggest setting boundaries and discussing expectations with her grandson and his girlfriend to facilitate a smoother living environment. Relationship with - Plan: - Encourage open communication with her about her feelings and expectations. - Recommend considering couples therapy to address relationship issues and improve communication. Grandluís's ADHD - Plan: - Encourage the patient to discuss the importance of medication adherence with her grandson and the potential consequences of stopping treatment without medical supervision. - Recommend that the grandson consult with his primary care provider or psychiatrist to discuss his medication and any concerns he may have. 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 - Recommend that Valarie consult with her primary care provider or tube turner to address her diabetes management and pseudo seizures. Shoulder Surgery Recovery - Plan: - Continue to monitor the patient's progress and encourage her to follow her surgeon's recommendations for post-operative care and rehabilitation. Follow-up - Plan: - Schedule next appointment in two months, as agreed upon in session, or sooner if needed. Plan Of Treatment Medication Medication Name Sig Start Date Stop Date Notes Citalopram Hydrobromide 40 MG 1 tablet O ral Once a day for 90 days DULoxetine HCl 60 MG 1 capsule Oral Once a day for 90 days Next Appt Details Follow Up: 2 Months, Reason: Follow up Depression Provider Name:Renata Parra , 02/02/2025 10:15:00 AM, [address], [facility] [address], [place], [address], Progress Notes * NILSA GRIFFITHSB:1955 (69 yo F)Acc No.[id number]:09/24/2024 Patient:?TUNDE JULIETA Provider:?RENATA PARRA MD :[id number]???Age:69 Y???Sex:Female D ate:09/24/2024 Address:[address] [place], [place] [id number] Pcp:Valente Dockery MD Subjective: * Chief Complaints: * ???1 Follow up anxietyPhq le ss than 5PSYCHOTHERAPY W/PATIENT W/E M * HPI: ???Depression Screening:? Chief Complaint: Stress related to living situation and family dynamics The note is transcribed using speech recognition software. It is a reflection of a visit with the patient. It might have some inaccuracy, including medication names and transcribing errors, though efforts have been made to correct them. Living Situation: The patient's living situation remains unchanged, with her grandson, his girlfriend, their baby, and his younger brother residing in her home. This arrangement has been ongoing for a year. Family Health Issues: The patient reports that her grandson's youngest brother recently suffered third-degree knowles on his back from falling into a fire pit. He was treated at [facility]'s burn unit with artificial skin, hospitalized overnight, and must stay home from school for two weeks to recover. Coping and Relationships: The patient expresses mixed feelings about her current living situation. She describes conflicts with her grandson, who has ADHD and has stopped taking his medication. A recent incident caused her to feel like she needs to walk on eggshells around him. The patient is frustrated with her grandson's girlfriend, whom she perceives as lazy and unmotivated. The girlfriend has ongoing issues with type 1 diabetes and pseudo seizures. The patient's relationship with her has been strained due to her preoccupation with her grandson's family and her perception of her as disengaged from their daily life. Future Plans: The patient is unsure about how long she will continue to support her grandson and his family. They have the option to move into a house provided by his other grandparents, located in [place], approximately 15 miles away. Mental Health: Both the patient and her are seeing a therapist named Kasey. The patient has an appointment scheduled for the following day. Physical Health: The patient notes that her shoulder is doing well after having had surgery. ?ZAHRA-7 (2018 Edition)?Feeling nervous, anxious, or on edge?Not at all,?Not being able to stop or control worrying?Not at all,?Worrying too much about different things?Several days,?Trouble relaxing?Not at all,?Being so restless that it is hard to sit still?Not at all,?Becoming easily annoyed or irritable?Not at all,?Feeling afraid as if something awful might happen?Several days.?[place]-Suicide Severity Rating Scale:?Suicide Risk (CSRS-screener)?in the past one month Have you wished you were or wished you could go to sleep and not wake up??No,?in the past one month Have you actually had any thoughts of killing yourself??No,?Have you ever done anything, started to do anything, or prepared to do anything to end your life??No.?Depression screening:?PHQ-9?Little interest or pleasure in doing things?Several days,?Feeling down, depressed, or hopeless?Not at all,?Trouble falling or staying asleep, or sleeping too much?Not at all,?Feeling tired or having little energy?Several days,?Poor appetite or overeating?Not at all,?Feeling bad about [...] yourself in some way?Not at all,?Total Score?3,?Interpretation?Minimal Depression.?Intervention?Depression Screening Findings?Negative,?Follow-Up for Depression?Mental health care management,?Suicide Risk Assessment Performed? ,?Additional Evaluation for Depression?Psychiatric interview and evaluation,?Name of the standardized tool used for adult depression screening:?Patient Health Questionnaire (PHQ-9).?Psychotherapy with Med eval:?Therapy with Med eval?Psychotherapy with Medication management?Yes,?Psychotherapy done Time Spent Minute?16 Min,?Type of therapy done?Supportive Therapy.? * Medical History:? * Surgical History:? * Hospitalization/Major Diagno stic Procedure:? * Social History:?Tobacco Use:?Tobacco Control (Standard)?How long has it been since you last smoked??Greater than 10 years,?Tobacco use:?Former smoker.?Migrated Social History:?Migrated Social History: Alcohol Intake: Occasional 10/21/2018,Tobacco Years: Former smoker 03/07/2021,Smoking Status: 0 11/30/2023. ???Drug/Alcohol:?AUDIT-C (Standard)?Did you have a drink containing alcohol in the past year??No,?Points?0,?Interpretation?Negative.?Miscellaneous:?Advance Care Planning?Are you your own decision-maker?Yes,?Do you have Power of Beer Merchant for Health or Medical??Yes.? * Medications:?TakingAtorvasta tin Calcium 20 MG Tablet Oral hydroCHLOROthiazide 12.5 MG Tablet Oral Lisinopril 10 MG Tablet Oral Gabapentin 300 MG Capsule TAKE 1 CAPSULE BY MOUTH TWICE DAILY Oral Clobetasol Propionate 0.05 % Cream External Linzess 72 MCG Capsule Oral oxyCODONE-Acetaminophen 5-325 MG Tablet Oral ALPRAZolam ER 2 MG Tablet Extended Release 24 Hour Oral traZODone HCl 100 MG Tablet TAKE 1 TABLET BY MOUTH DAILY Oral DULoxetine HCl 60 MG Capsule Delayed Release Particles TAKE 1 CAPSULE BY MOUTH DAILY Citalopram Hydrobromide 40 MG Tablet TAKE 1 TABLET BY MOUTH DAILY Wegovy 1.7 MG/0.75ML Solution Auto-injector 0.75 mL Subcutaneous Taking Atorvastatin Calcium 20 MG Tablet Oral Taking hydroCHLOROthiazide 12.5 MG Tablet Oral Taking Lisinopril 10 MG Tablet Oral Taking Gabapentin 300 MG Capsule TAKE 1 CAPSULE BY MOUTH TWICE DAILY Oral Taking Clobetasol Propionate 0.05 % Cream External Taking Linzess 72 MCG Capsule Oral Taking oxyCODONE-Acetaminophen 5-325 MG Tablet Oral Taking ALPRAZolam ER 2 MG Tablet Extended Release 24 Hour Oral Taking traZODone HCl 100 MG Tablet TAKE 1 TABLET BY MOUTH DAILY Oral Taking DULoxetine HCl 60 MG Capsule Delayed Release Particles TAKE 1 CAPSULE BY MOUTH DAILY Taking Citalopram Hydrobromide 40 MG Tablet TAKE 1 TABLET BY MOUTH DAILY Taking Wegovy 1.7 MG/0.75ML Solution Auto-injector 0.75 mL Subcutaneous DiscontinuedBaclofen 10 MG Tablet Oral Medication List reviewed and reconciled with the patientDiscontinued Baclofen 10 MG Tablet Oral Medication List reviewed and reconciled with the patient * Allergies:?Penicillins: Dale rgy - Onset Date 02/15/2024no[Allergies Verified] Objective: * Vitals:?BP:136/81mm Hg, HR:8 5/min, Wt:201lbs, Wt-k.17 kg, Ht: 60.00 in, Ht- cm: 152.40 cm, BMI:39.25Index, Body Surface Area: 1.96. * Examination: ???General Examination: ???Mental Status Examination: Patient appeared preoccupied and stressed during the consultation. Expressed feelings of frustration and anger, particularly in relation to family dynamics and household responsibilities. Mood fluctuated as she discussed different family members, indicating possible emotional distress. Reports walking on eggshells around grandson. Expresses desire to have my house back . Vital Signs: review note for vitals Physical Examination: General: Patient did not report any acute physical complaints or issues during the visit. Musculoskeletal: Patient mentioned that her shoulder is doing well post-surgery, with no specific complaints or limitations noted at this time. Assessment: * Assessment: 1.?Generalized anxiety disor serena - F41.1 (Primary)???2.?Major depressive disorder, recurrent severe without psychotic features - F33.2???3.?Post-traumatic stress disorder, chronic - F43.12??? Family Stressors and Living Situation - Plan: - Encourage the patient to continue discussing her concerns with her therapist, Kasey. - Recommend exploring stress management techniques, such as deep breathing exercises, meditation, or yoga, to help cope with the current living situation. - Suggest setting boundaries and discussing expectations with her grandson and his girlfriend to facilitate a smoother living environment. Relationship with - Plan: - Encourage open communication with her about her feelings and expectations. - Recommend considering couples therapy to address relationship issues and improve communication. Grandluís's ADHD - Plan: - Encourage the patient to discuss the importance of medication adherence with her grandson and the potential consequences of stopping treatment without medical supervision. - Recommend that the grandson consult with his primary care provider or psychiatrist to discuss his medication and any concerns he may have. 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 - Recommend that Valarie consult with her primary care provider or tube turner to address her diabetes management and pseudo seizures. Shoulder Surgery Recovery - Plan: - Continue to monitor the patient's progress and encourage her to follow her surgeon's recommendations for post-operative care and rehabilitation. Follow-up - Plan: - Schedule next appointment in two months, as agreed upon in session, or sooner if needed. Plan: * Treatment: * Procedure Codes:?53102 PSYCH OTHERAPY W/PATIENT W/E&M SRVCS 30 [id number] BEHAV ASSMT W/SCORE & DOCD/STAND [id number] VISIT COMPLEXITY INHERENT TO ONGOING CARE RELATED TO A PATIENT'S SINGLE, SERIOUS CONDITION OR A COMPLEX CONDITION * Follow Up:?2 Months (Reason: Follow up Depression) * Billing Information: * Visit Code:? 91137 OFFICE OUTPATIENT VISIT 25 MINUTES DETAILED HISTORY AND EXAM/MODERATE MEDICAL DECISION MAKING. * Procedure Codes:? 83977 PSYCHOTHERAPY W/PATIENT W/E&M SRVCS 30 MIN. 91407 BEHAV ASSMT W/SCORE & DOCD/STAND INSTRUMENT. G2211 VISIT COMPLEXITY INHERENT TO ONGOING CARE RELATED TO A PATIENT'S SINGLE, SERIOUS CONDITION OR A COMPLEX CONDITION. * Sign off status: Completed true * Provider:?RENATA PARRA MD Date:?09/24 Generated for Basim rodriguez/Guy/Kacysmitting on:?12/23/2024 08:52 AM [employer] History and Physical Notes * HPI (History of Present Illness) Category Sub-Category Detail Notes Category Not es Depression screening PHQ-9 Little inte rest or pleasure in doing things: Several days Feeling down, depressed, or hopeless: No t at all Trouble falling or staying asleep, or sl eeping too much: Not at all Feeling tired or having little energy: S everal days Poor appetite or overeating: Not at all [...] all Total Score: 3 Interpretation: Minimal Depression Intervention Depression Screening Findings: N egative Follow-Up for Depression: Mental health care management Suicide Risk Assessment Performed: ____ Additional Evaluation for Depression: Ps ychiatric interview and evaluation Name of the standardized too l used for adult depression screening:: Patient Health Questionnaire (PHQ-9) Depression Screening ZAHRA-7 (2018 Edition) Feelin g [...] as if something awful ben ht happen: Several days Psychotherapy with Med eval Therapy with Med laurie l Psychotherapy with Medication management: Yes ?Psychotherapy done Time Spent Minute: 1 6 Min ?Type of therapy done: Supportive Therap y [place]-Suicide Severity Rating Scale Suicide Risk (CSRS-screener) in the past one month Have you wished you were or wished you could go to sleep and not wake up?: No in the past one month Have y ou actually had any thoughts of killing yourself?: No ?Have you ever done anything , started to do anything, or prepared to do anything to end your life?: No Examination Category Sub-Category Detail Notes Category Not es General Examination Mental Status Examination: Patient appeared preoccupied and stressed during the consultation. Expressed feelings of frustration and anger, particularly in relation to family dynamics and household responsibilities. Mood fluctuated as she discussed different family members, indicating possible emotional distress. Reports walking on eggshells around grandson. Expresses desire to have my house back . Vital Signs: review note for vitals Physical Examination: General: Patient did not report any acute physical complaints or issues during the visit. Musculoskeletal: Patient mentioned that her shoulder is doing well post-surgery, with no specific complaints or limitations noted at this time.
--- OUTSIDE RECORDS SUMMARY | 2024-12-23 08:52 | XMS_ITS ---
Author Organization [email or web address] Address [address] [facility] [address] [place] [address] Care Team Providers Care Polysomnographic Technician Name Role Phone Valente Dockery MD Primary Care Provider Unavaila Renata Mathur Unavailable [phone] Allergies Allergen (clinical drug ingredient) Drug/Non Drug Allergy documented on EMR Reaction Allergy Type Onset Date Status Substance with penicillin structure and antibacterial mechanism of action (substance) Penicillins Unknown Drug Allergy 02/15/2024 Active REASON FOR VISIT anxiety, i shed hair, PSYCHOTHERAPY W/PATIENT W/E M, phq less than 5, MIPS BP exclusion due to established diagnosis of HTN Medications Medication SIG (Take, Route, Frequency, Duration) Notes Start Date End Date Status DULoxetine HCl 60 MG TAKE 1 CAPSULE BY MOUTH DAILY for 90 Active Citalopram Hydrobromide 40 MG TAKE 1 TAB LET BY MOUTH DAILY for 90 days Active Citalopram Hydrobromide 40 MG 1 tablet O ral Once a day for 90 days Active DULoxetine HCl 60 MG 1 capsule Oral Once a day for 90 days Active ALPRAZolam ER 2 MG Oral for 90 Days Active traZODone HCl 100 MG TAKE 1 TABLET BY MOUTH DAILY Oral for 90 Days Active Clobetasol Propionate 0.05 % External for 20 Days Active Linzess 72 MCG Oral for 30 Days Active oxyCODONE-Acetaminophen 5-32 5 MG Oral for 7 Days Active Gabapentin 300 MG TAKE 1 CAPSULE BY MOUTH TWICE DAILY Oral for 90 Days Active Lisinopril 10 MG Oral for 90 Days Active Atorvastatin Calcium 20 MG Oral for 90 Days Active hydroCHLOROthiazide 12.5 MG Oral for 90 Days Active Social History Tobacco Use: Social History Observation Description Date Details (start date - stop date) Former Smoker NA - NA Sex Assigned At : Social History Observation Description Sex Assigned At Female Tobacco Control (Standard) Question Answer Notes Tobacco use: Former smoker Encounters Encounter Location Date Provider Diagnosis [facility] [address] [place] [address] 11/10/2024 Renata Parra Generalized anxiety disorder F41.1 ; Major depressive disorder, recurrent severe without psychotic features F33.2 and Post-traumatic stress disorder, chronic F43.12 Assessments Encounter Date Diagnosis (ICD Code) Assessment Notes Treatment Notes Treatment Clinical Notes Section Notes 11/10/2024 Generalized anxiety disorder (ICD-10 - F41.1) Hair Loss - Assessment: Likely related to recent significant weight loss, thyroid issues, and stress. No family history of cancer, and patient is under regular care of a computer engineering technologist. Patient bought a wig to cope with hair loss. - Plan: Continue monitoring hair loss and thyroid function. Encourage stress management techniques and maintain a healthy lifestyle. Weight Management - Assessment: Patient lost 64 pounds since February, partially due to Wegovy medication, which has been discontinued after reaching goal weight. Patient has gained back about 5 pounds since stopping Wegovy. - Plan: Encourage maintenance of healthy diet and exercise routine, including daily dog walks. Monitor weight changes and consider re-initiating Wegovy if necessary. Thyroid Issues - Assessment: Patient has a history of thyroid problems. - Plan: Continue monitoring thyroid function and adjust treatment as needed. Arthritis - Assessment: Patient reports having arthritis but no acute pain or abdominal pain. - Plan: Continue current management and monitor for any changes in symptoms. Dermatitis - Assessment: Patient is under the care of a street sweeper, Dr. Irwin, for dermatitis on hands. Patient reports collagen and biotin supplements may have helped with dermatitis symptoms. - Plan: Continue following up with street sweeper and adhere to prescribed treatment. Depression and Anxiety - Assessment: Patient is on citalopram 40 mg daily and duloxetine 60 mg daily. - Plan: Send prescriptions for citalopram and duloxetine to [facility] for a 3-month supply. Continue monitoring mental health and adjust medications as needed. General Health and Well-being - Assessment: Patient is taking a daily senior multivitamin, collagen, and biotin. Recommended to check zinc content in multivitamin and consider additional zinc and magnesium supplementation for hair growth. - Plan: Continue current regimen and monitor for any deficiencies or changes in health status. Stress Management - Assessment: Patient reports stress related to the holiday season and family living situation. - Plan: Discuss stress management techniques and provide support for coping with family-related stress. 11/10/2024 Major depressive disorder, recurrent severe without psychotic features (ICD-10 - F33.2) Hair Loss - Assessment: Likely related to recent significant weight loss, thyroid issues, and stress. No family history of cancer, and patient is under regular care of a computer engineering technologist. Patient bought a wig to cope with hair loss. - Plan: Continue monitoring hair loss and thyroid function. Encourage stress management techniques and maintain a healthy lifestyle. Weight Management - Assessment: Patient lost 64 pounds since February, partially due to Wegovy medication, which has been discontinued after reaching goal weight. Patient has gained back about 5 pounds since stopping Wegovy. - Plan: Encourage maintenance of healthy diet and exercise routine, including daily dog walks. Monitor weight changes and consider re-initiating Wegovy if necessary. Thyroid Issues - Assessment: Patient has a history of thyroid problems. - Plan: Continue monitoring thyroid function and adjust treatment as needed. Arthritis - Assessment: Patient reports having arthritis but no acute pain or abdominal pain. - Plan: Continue current management and monitor for any changes in symptoms. Dermatitis - Assessment: Patient is under the care of a street sweeper, Dr. Irwin, for dermatitis on hands. Patient reports collagen and biotin supplements may have helped with dermatitis symptoms. - Plan: Continue following up with street sweeper and adhere to prescribed treatment. Depression and Anxiety - Assessment: Patient is on citalopram 40 mg daily and duloxetine 60 mg daily. - Plan: Send prescriptions for citalopram and duloxetine to [facility] for a 3-month supply. Continue monitoring mental health and adjust medications as needed. General Health and Well-being - Assessment: Patient is taking a daily senior multivitamin, collagen, and biotin. Recommended to check zinc content in multivitamin and consider additional zinc and magnesium supplementation for hair growth. - Plan: Continue current regimen and monitor for any deficiencies or changes in health status. Stress Management - Assessment: Patient reports stress related to the holiday season and family living situation. - Plan: Discuss stress management techniques and provide support for coping with family-related stress. 11/10/2024 Post-traumatic stress disorder, chronic (ICD-10 - F43.12) Hair Loss - Assessment: Likely related to recent significant weight loss, thyroid issues, and stress. No family history of cancer, and patient is under regular care of a computer engineering technologist. Patient bought a wig to cope with hair loss. - Plan: Continue monitoring hair loss and thyroid function. Encourage stress management techniques and maintain a healthy lifestyle. Weight Management - Assessment: Patient lost 64 pounds since February, partially due to Wegovy medication, which has been discontinued after reaching goal weight. Patient has gained back about 5 pounds since stopping Wegovy. - Plan: Encourage maintenance of healthy diet and exercise routine, including daily dog walks. Monitor weight changes and consider re-initiating Wegovy if necessary. Thyroid Issues - Assessment: Patient has a history of thyroid problems. - Plan: Continue monitoring thyroid function and adjust treatment as needed. Arthritis - Assessment: Patient reports having arthritis but no acute pain or abdominal pain. - Plan: Continue current management and monitor for any changes in symptoms. Dermatitis - Assessment: Patient is under the care of a street sweeper, Dr. Irwin, for dermatitis on hands. Patient reports collagen and biotin supplements may have helped with dermatitis symptoms. - Plan: Continue following up with street sweeper and adhere to prescribed treatment. Depression and Anxiety - Assessment: Patient is on citalopram 40 mg daily and duloxetine 60 mg daily. - Plan: Send prescriptions for citalopram and duloxetine to [facility] for a 3-month supply. Continue monitoring mental health and adjust medications as needed. General Health and Well-being - Assessment: Patient is taking a daily senior multivitamin, collagen, and biotin. Recommended to check zinc content in multivitamin and consider additional zinc and magnesium supplementation for hair growth. - Plan: Continue current regimen and monitor for any deficiencies or changes in health status. Stress Management - Assessment: Patient reports stress related to the holiday season and family living situation. - Plan: Discuss stress management techniques and provide support for coping with family-related stress. Plan Of Treatment Medication Medication Name Sig Start Date Stop Date Notes Citalopram Hydrobromide 40 MG 1 tablet O ral Once a day for 90 days DULoxetine HCl 60 MG 1 capsule Oral Once a day for 90 days Next Appt Details Follow Up: 3 Months, Reason: Provider Name:Renata Parra , 02/02/2025 10:15:00 AM, [address], [facility] [address], [place], [address], Progress Notes * NILSA GRIFFITHSB:1955 (69 yo F)Acc No.[id number]:11/10/2024 Patient:?JULIETA GRIFFITHS Provider:?RENATA PARRA MD :[id number]???Age:69 Y???Sex:Female D ate:11/10/2024 Address:[address] [place], [place] [id number] Pcp:Valente Dockery MD Subjective: * Chief Complaints: * ???AnxietyI shed hairPSYCHOT HERAPY W/PATIENT W/E MPhq less than 5MIPS BP exclusion due to established diagnosis of HTN * HPI: ???Psychotherapy with Med eval:? The note is transcribed using speech recognition software. It is a reflection of a visit with the patient. It might have some inaccuracy, including medication names and transcribing errors, though efforts have been made to correct them. Chief Complaint: Recent hair loss The patient reports experiencing recent hair loss over a period of 2-3 weeks. She has a history of thyroid problems and has lost 64 pounds since February, attributing this weight loss to stress, Wegovy medication, walking her dog, and dietary changes. Medical History: - Thyroid problems - Arthritis - Dermatitis on hands - Cardiac problems in family history Current Medications: - Citalopram 40 mg daily - Duloxetine 60 mg daily - Daily senior multivitamin - Baby aspirin daily Weight Management: The patient has stopped taking Wegovy after reaching her goal weight and has only gained back about 5 pounds. Mental Health: The patient is taking citalopram and duloxetine for depression and anxiety. She requests a prescription refill through [facility]. Family Situation: The patient's grandson and his girlfriend are currently living with her. Her is nearing chcf and experiencing some stress related to financial stability and the transition to chcf. Sleep: The patient reports sleeping well. Recent Medical Care: - Sees a street sweeper for hand dermatitis - Regularly sees a computer engineering technologist - Recently had yearly checkup Coping Mechanisms: - Finds collagen and biotin helpful for skin issues - Bought a wig to cope with hair loss Financial Situation: The patient's house is paid off, and she expresses contentment with their current living situation. She believes they will be financially stable in chcf despite her 's concerns about decreased income. Additional Notes: The patient denies any family history of cancer, acute pain, abdominal pain, or significant increase in stress over the past few months. She mentions that Maritza is stressful but does not report any other major stressors. ?Therapy with Med eval?Psychotherapy with Medication management?Yes,?Psychotherapy done Time Spent Minute?16 Min,?Type of therapy done?Supportive Therapy.?Depression Screening:?ZAHRA-7 (2018 Edition)?Feeling nervous, anxious, or on edge?Not at all,?Not being able to stop or control worrying?Not at all,?Worrying too much about different things?Not at all,?Trouble relaxing?Not at all,?Being so restless that it is hard to sit still?Not at all,?Becoming easily annoyed or irritable?Several days,?Feeling afraid as if something awful might happen?Not at all,?If you checked any problems, how difficult have they made it for you to do your work, take care of things at home, or get along with other people??Somewhat difficult.?[place]-Suicide Severity Rating Scale:?Suicide Risk (CSRS-screener)?in the past [...] such as reading the newspaper or watching television?Not at all,?Moving or speaking so slowly that other people could have noticed; or the opposite, being so fidgety or restless that you have been moving around a lot more than usual?Not at all,?Thoughts that you would be better off or of hurting yourself in some way?Not at all,?Total Score?2, Interpretation?Minimal Depression.?Intervention?Depression Screening Findings?Negative,?Suicide Risk Assessment Performed? .? * ROS:?Patient not eligible due to active diagnosis of hypertension:?G9744. * Medical History:? * Surgical History:?Any surgic al history Removal of gallbladder (34837) 11/26/1995 * Hospitalization/Major Diagno stic Procedure:? * Family History:?Mother: Fami ly history of sudden cardiac .?Brother: Alcohol abuse .?Sister: Anxiety disorder .?Son: Drug overdose , Substance abuse .? * Social History:?Tobacco Use:?Tobacco Control (Standard)?Tobacco use:?Former smoker.?Miscellaneous:?Advance Care Planning?Are you your own decision-maker?Yes,?Do you have Power of Cash Register Servicer for Health or Medical??Yes,?Do you have a power of pododermatologist for health??Yes,?Do you have power of pododermatologist for Medical ??Yes,?If yes, then please bring the POA paperwork so that we can upload it.?Yes.? * Medications:?TakingAtorvasta tin Calcium 20 MG Tablet [...] Tablet TAKE 1 TABLET BY MOUTH DAILY Citalopram Hydrobromide 40 MG Tablet 1 tablet Oral Once a day DULoxetine HCl 60 MG Capsule Delayed Release Particles 1 capsule Oral Once a day Taking Atorvastatin Calcium 20 MG Tablet Oral [...] TAKE 1 TABLET BY MOUTH DAILY Taking Citalopram Hydrobromide 40 MG Tablet 1 tablet Oral Once a day Taking DULoxetine HCl 60 MG Capsule Delayed Release Particles 1 capsule Oral Once a day DiscontinuedWegovy 1.7 MG/0.75ML Solution Auto-injector 0.75 mL Subcutaneous Medication List reviewed and reconciled with the patientDiscontinued Wegovy 1.7 MG/0.75ML Solution Auto-injector 0.75 mL Subcutaneous Medication List reviewed and reconciled with the patient * Allergies:?Penicillins: Dale rgy - Onset Date 02/15/2024no[Allergies Verified] Objective: * Vitals:? * Examination: ???General Examination: ???Mental Status Examination: Patient is alert and oriented. No acute distress observed. Speech coherent and goal-directed. Mood appears stable with no signs of acute anxiety or depression during the interaction. Patient expresses some stress related to the holiday season and family living situation. Vital Signs: please review note Physical Examination: General: Significant hair loss reported, with most hair gone over a period of 2-3 weeks. Dermatological: Patient uses a wig due to hair loss. No other skin issues reported during this visit except ongoing dermatitis on hands managed by a street sweeper. Patient mentions collagen and biotin supplements have helped with dermatitis. Musculoskeletal: Chronic arthritis mentioned, but no acute joint pain or discomfort reported. Cardiovascular: No acute cardiac issues reported; patient under regular care of a computer engineering technologist and compliant with daily baby aspirin. Endocrine: History of thyroid problems noted. Additional Information: Patient reports 64-pound weight loss since February, attributed to Wegovy injections, diet changes, and daily dog walking. Patient discontinued Wegovy after reaching goal weight, has regained about 5 pounds. Takes a daily multivitamin for seniors. No family history of cancer reported. Recent annual check-up completed with no significant findings noted. Current medications include citalopram 40mg daily and duloxetine 60mg daily for depression and anxiety. Assessment: * Assessment: 1.?Generalized anxiety disor serena - F41.1 (Primary)???2.?Major depressive disorder, recurrent severe without psychotic features - F33.2???3.?Post-traumatic stress disorder, chronic - F43.12??? Hair Loss - Assessment: Likely related to recent significant weight loss, thyroid issues, and stress. No family history of cancer, and patient is under regular care of a computer engineering technologist. Patient bought a wig to cope with hair loss. - Plan: Continue monitoring hair loss and thyroid function. Encourage stress management techniques and maintain a healthy lifestyle. Weight Management - Assessment: Patient lost 64 pounds since February, partially due to Wegovy medication, which has been discontinued after reaching goal weight. Patient has gained back about 5 pounds since stopping Wegovy. - Plan: Encourage maintenance of healthy diet and exercise routine, including daily dog walks. Monitor weight changes and consider re-initiating Wegovy if necessary. Thyroid Issues - Assessment: Patient has a history of thyroid problems. - Plan: Continue monitoring thyroid function and adjust treatment as needed. Arthritis - Assessment: Patient reports having arthritis but no acute pain or abdominal pain. - Plan: Continue current management and monitor for any changes in symptoms. Dermatitis - Assessment: Patient is under the care of a street sweeper, Dr. Irwin, for dermatitis on hands. Patient reports collagen and biotin supplements may have helped with dermatitis symptoms. - Plan: Continue following up with street sweeper and adhere to prescribed treatment. Depression and Anxiety - Assessment: Patient is on citalopram 40 mg daily and duloxetine 60 mg daily. - Plan: Send prescriptions for citalopram and duloxetine to [facility] for a 3-month supply. Continue monitoring mental health and adjust medications as needed. General Health and Well-being - Assessment: Patient is taking a daily senior multivitamin, collagen, and biotin. Recommended to check zinc content in multivitamin and consider additional zinc and magnesium supplementation for hair growth. - Plan: Continue current regimen and monitor for any deficiencies or changes in health status. Stress Management - Assessment: Patient reports stress related to the holiday season and family living situation. - Plan: Discuss stress management techniques and provide support for coping with family-related stress. Plan: * Treatment: * Procedure Codes:?37220 PSYCH OTHERAPY W/PATIENT W/E&M SRVCS 30 [id number] BEHAV ASSMT W/SCORE & DOCD/STAND [id number] Pt not karel d/t act dig htn * Follow Up:?3 Months * Billing Information: * Visit Code:? 84007 OFFICE OUTPATIENT VISIT 25 MINUTES DETAILED HISTORY AND EXAM/MODERATE MEDICAL DECISION MAKING. * Procedure Codes:? 84320 PSYCHOTHERAPY W/PATIENT W/E&M SRVCS 30 MIN. 75847 BEHAV ASSMT W/SCORE & DOCD/STAND INSTRUMENT. G9744 Pt not karel d/t act dig htn. * HT RADIO OPERATOR Sign off status: Completed true * Provider:?RENATA PARRA MD Date:?11/10 Generated for Basim rodriguez/Guy/eTransmitting on:?12/23/2024 08:52 AM FLIGHT RADIO OPERATOR History and Physical Notes * HPI (History [...] as reading the newspaper or watching television: Not at all Moving or speaking so slowly that other people could have noticed; or the opposite, being so fidgety or restless that you have been moving around a lot more than usual: Not at all Thoughts that you would be b wilfredo off or of hurting yourself in some way: Not at all Total Score: 2 Interpretation: Minimal Depression Intervention Depression Screening Findings: N egative Suicide Risk Assessment Performed: ____ Depression Screening ZAHRA-7 (2018 Edition) Ymuikoin g nervous, anxious, or on edge: Not at all Not being able to stop or control worryi ng: Not at all Worrying too much about different things : Not at all Trouble relaxing: Not at all Being so restless that it is hard to sit still: Not at all Becoming easily annoyed or irritable: Feeling afraid as if something awful ben ht happen: Not at all If you checked any problems, how difficult have they made it for you to do your work, take care of things at home, or get along with other people?: Somewhat difficult Psychotherapy with Med eval Therapy with Med laurie l Psychotherapy with Medication management: Yes ?[Embedded Image Not Availab le]
--- OUTSIDE RECORDS SUMMARY | 2024-12-23 08:52 | XMS_ITS | Continuity of Care Document ---
Author Organization [facility] Address [address] [address] [place] [address] Phone Care Team Providers Care Maintenance Supervisor 2Nd Shift Name Role Phone Emy Rolle MD Unavailable Unavailabl e Allergies, Adverse Reactions, Alerts Substance Reaction Status Criticality Penicillins Active No Information Medications Medication Instructions Dosage Effective Dates (start - stop) Status Comments HYDROCHLOROTHIAZIDE (unknown strength) Not Available - Active XANAX (unknown strength) Not Available - A ctive LISINOPRIL-HYDROCHLOROTHIA ZIDE (unknown strength) Not Available - Active CELEXA (unknown strength) Not Available - Active LIPITOR (unknown strength) Not Available - Active Procedures Procedure Date X-RAY EXAM HIP UNI W PELVIS 2-3 VIEWS Au OFFICE/OUTPATIENT VISIT EST OFFICE/OUTPATIENT VISIT EST POSTOP FOLLOW-UP VISIT POSTOP FOLLOW-UP VISIT OFFICE/OUTPATIENT VISIT EST OFFICE/OUTPATIENT VISIT EST MU Reporting OFFICE/OUTPATIENT VISIT EST MU Reporting POSTOP FOLLOW-UP VISIT OFFICE/OUTPATIENT VISIT EST MU Reporting POSTOP FOLLOW-UP VISIT MU Reporting MU Reporting POSTOP FOLLOW-UP VISIT MU Reporting OFFICE/OUTPATIENT VISIT EST MU Reporting OFFICE/OUTPATIENT VISIT EST MU Reporting OFFICE/OUTPATIENT VISIT EST MU Reporting OFFICE/OUTPATIENT VISIT EST MU Reporting OFFICE/OUTPATIENT VISIT EST MU Reporting OFFICE/OUTPATIENT VISIT EST MU Reporting OFFICE/OUTPATIENT VISIT NEW MU Reporting OFFICE/OUTPATIENT VISIT EST MU Reporting OFFICE/OUTPATIENT VISIT EST MU Reporting OFFICE/OUTPATIENT VISIT EST MU Reporting OFFICE/OUTPATIENT VISIT EST MU Reporting POSTOP FOLLOW-UP VISIT MU Reporting POSTOP FOLLOW-UP VISIT MU Reporting POSTOP FOLLOW-UP VISIT MU Reporting OFFICE/OUTPATIENT VISIT EST MU Reporting Advance Directives Directive Yes / No Effective Date File Name No Information Encounters Encounter Description Practice Location Reason(s) For Visit Diagnoses Date Provider Providers Copied on Encounter [facility], [address], Critical access hospital, tel:[phone] [facility] No Information 6 [address] [place]. [address] [place], [place], [address] . tel: [phone] OFFICE/OUTPA TIENT VISIT EST [facility], [address], [address], tel:[phone] [facility] Pain in left hipPrimary osteoarthritis of left hip 0 6 [address] eu Yad[place]. [address] [facility], [place], [place], [address] . tel: [phone] OFFICE/OUTPA TIENT VISIT EST [facility], [address], Critical access hospital, tel:[phone] [facility] Aftercare following surgery of the musculoskeletal system, necDisorders of bursae and tendons in shoulder region, unspecified 0-201 4 [place] [place]. [address], [place], [place], [address] . tel: [phone] Referring Provider: Valente Branch, [address], [place], [place], [facility]. tel:[phone] [facility], [address], [place], [address], [place] tel:[phone] [facility] RT SHOULDER (chief complaint) S/P rotator cuff repairAftercare following surgery of the musculoskeletal system, nec Feb- 4 [address]. [address], [place], [place], [address] . tel: [phone] Referring Provider: Valente Branch, [address], [place], [facility]. tel:[phone] [facility], [address] [facility] [address], [place], [address], [place] tel:[phone] [facility] Rt shoulder RCR (chief complaint) Aftercare following surgery of the musculoskeletal system, necS/P rotator cuff repairAcromiocl avicular joint arthritisDisord ers of bursae and tendons in shoulder region, unspecified Jan-2 4 Rosa Alegria. [address], [place], [address]. tel: [phone] Referring Provider: Valente Branch, [address], [place], [facility]. tel:[phone] OFFICE/OUTPA TIENT VISIT EST [facility], [address], [place], [address], [place] tel:[phone] [facility] RT SHOULDER (chief complaint) Complete rupture of rotator cuffAcromioclav icular joint arthritis Jan-0 4 [address] [place]. [address], [place], [place], [address] . tel: [phone] Referring Provider: Valente Branch, [address], [place], [address]. tel:[phone] OFFICE/OUTPA TIENT VISIT EST [facility], [address], [place], [address], [place] tel:[phone] [facility] Rt shoulder a/a (chief complaint) Disorders of bursae and tendons in shoulder region, unspecifiedMedi al epicondylitisCu bital tunnel syndrome on right 4 [address] eu [place]. [address], [place], [place], [address] . tel:[phone] Referring Provider: Valente Branch, [address], [place], [facility]. tel:[phone] OFFICE/OUTPA TIENT VISIT EST [facility], [address], [place], [address], [place] tel:[phone] [facility] LT HIP; RT SHOULDER (chief complaint) Disorders of bursae and tendons in shoulder region, unspecified 3 [address] eu [place]. [address], [place], [place], [address] . tel:[phone] Referring Provider: Valente Branch, [address], [place], [address]. tel:[phone] OFFICE/OUTPA TIENT VISIT EST [facility], [address], [place], [address], [place] tel:[phone] [facility] RT SHOULDER (chief complaint) Aftercare following surgery of the musculoskeletal system, necComplete rupture of rotator cuffDisorders of bursae and tendons in shoulder region, unspecifiedEnth esopathy of hip region 3 Rosa Alegria. [address], [place], [address]. tel:[phone] Referring Provider: Valente Branch, [address], [place], [address]. tel:[phone] [facility], [address], [place], [address], [place] tel:[phone] [facility] Aftercare following surgery of the musculoskeletal system, necComplete rupture of rotator cuffOther synovitis and tenosynovitisEn thesopathy of hip region 3 [place] [place]. [address] , [place], [place], [address] . tel:[phone] Referring Provider: Valente Branch, [address], [place], [address]. tel:[phone] [facility], [address] [facility] [address], [address], [place] tel:[phone] [facility] RT SHOULDER (chief complaint) Aftercare following surgery of the musculoskeletal system, necComplete rupture of rotator cuffDisorders of bursae and tendons in shoulder region, unspecifiedAfte rcare following surgery of the musculoskeletal system, nec 3 [address]Hom[address] [place]. [address] [facility] [address] , [place], [place], [address] . tel:[phone] Referring Provider: Valente Branch, [address], [place], [address]. tel:[phone] OFFICE/OUTPA TIENT VISIT EST [facility], [address] [facility] [address] [address], [place], [address], [place] tel:[phone] [facility] Rt shoulder MRI results (chief complaint) Pain in joint involving shoulder regionComplete rupture of rotator cuffNontraumati c rupture of tendons of biceps (long head)Disorders of bursae and tendons in shoulder region, unspecifiedBici pital tenosynovitisIn fraspinatus (muscle) (tendon) sprainSubscapul johana (muscle) sprainPain in joint involving shoulder regionComplete rupture of rotator cuffNontraumati c rupture of tendons of biceps (long head)Disorders of bursae and tendons in shoulder region, unspecifiedBici pital tenosynovitisIn fraspinatus (muscle) (tendon) sprainSubscapul johana (muscle) sprain 3 [address] eu [place]. [address] , [place], [place], [address] . tel:[phone] Referring Provider: Valente Branch, [address], [place], [facility]. tel:[phone] OFFICE/OUTPA TIENT VISIT EST [facility], [address] [facility] [address], [address], [place] tel:[phone] [facility] Rt shoulder pain (chief complaint) Rotator cuff (capsule) sprainComplete rupture of rotator cuffDisorders of bursae and tendons in shoulder region, unspecifiedPain in joint involving shoulder regionRotator cuff (capsule) sprainComplete rupture of rotator cuff May-0 9-201 3 [address] [place]. [address] [facility] [address] , [place], [place], [address] . tel:[phone] Referring Provider: Valente Branch, [address], [place], [facility]. tel:[phone] OFFICE/OUTPA TIENT VISIT EST [facility], [address], [address], [place] tel:[phone] [facility] fu Lt hip pain (chief complaint) Enthesopathy of hip regionOsteoarth rosis, unspecified whether generalized or localized, involving pelvic region and thighSpinal stenosis of lumbar regionRadiculit is, Thoracic or LumbarDisorders of bursae and tendons in shoulder region, unspecified Alexx-0 201 3 L[address]Hom[address] eu Yad[place]. [address] [facility] [address] [place], [place], [address] . tel:[phone] Referring Provider: Valente Branch, [address], [place], [facility]. tel:[phone] OFFICE/OUTPA TIENT VISIT EST [facility], [address] [facility] [address], [address], [place] tel:[phone] [facility] LBP and left hip pain (chief complaint) Radiculitis, Thoracic or LumbarSpinal stenosis of lumbar regionOsteoarth rosis, unspecified whether generalized or localized, involving pelvic region and thigh May-2 2-201 3 E[place]. [address] [place], [place], [address] . tel:[phone] Referring Provider: Valente Branch, [address] [place] [address] [address], [place], [facility]. tel:[phone] OFFICE/OUTPA TIENT VISIT EST [facility], [address], [address], tel:[phone] [facility] Left hip pain (chief complaint)LB P and sciatica (chief complaint) Radiculitis, Thoracic or LumbarDegenerat ion of lumbar or lumbosacral intervertebral discAcquired spondylolisthes isPain in joint involving pelvic region and thighOsteoarthr osis, unspecified whether generalized or localized, involving pelvic region and thigh May-1 4-201 3 Mich Joshiok. [address] [facility], [place], [place], [address] . tel:[phone] Referring Provider: Valente Branch, [facility] [address], [place], [facility]. tel:[phone] [facility], [address], [address], [place] tel:[phone] [facility] Pain in joint involving pelvic region and thigh May-1 3-201 3 Mich Joshiok. [address] [place], [place], [address] . tel:[phone] OFFICE/OUTPA TIENT VISIT EST [facility], [address], [address], [place] tel:[phone] [facility] AVN (avascular necrosis of bone)Pain in joint involving pelvic region and thigh May-0 6-201 3 Mich Joshiok. [address] [place], [place], [address] . tel:[phone] Referring Provider: Valente Branch, [facility] [address], [place], [facility]. tel:[phone] OFFICE/OUTPA TIENT VISIT NEW [facility], [address], [address], [place] tel:[phone] [facility] LBP and left sciatica (chief complaint)Le ft hip pain (chief complaint) Hypertension, UnspecifiedEnth esopathy of hip regionDegenerat ion of lumbar or lumbosacral intervertebral discDegeneratio n of lumbar or lumbosacral intervertebral discEnthesopath y of hip regionRadiculit is, Thoracic or Lumbar Apr-2 3-201 3 Mich Simmons. [address] [facility] [address] , [place], [place], [address] . tel:[phone] Referring Provider: Emy Branch, [address] [facility] [address] , [place], [address] . tel:[phone] [facility], [address], [address], [place] tel:[phone] [facility] Sprain of other specified sites of hip and thigh Apr-1 5-201 3 L'Hommedi eu Emy. [address] [facility] [address] , [place], [place], [address] . tel:[phone] OFFICE/OUTPA TIENT VISIT EST [facility], [address] [address], [place], [address], [place] tel:[phone] [facility] LT HIP (chief complaint) Hamstring tendonitis at origin Apr-1 0-201 3 L'Hom[address] eu Emy. [address] [facility] [address] [place], [place], [address] . tel:[phone] Referring Provider: Valente Branch, [address], [place], [address]. tel:[phone] OFFICE/OUTPA TIENT VISIT EST [facility], [address], [address], [place] tel:[phone] [facility] LT ANKLE (chief complaint) Fracture of lateral malleolus, closedAftercare for healing traumatic fracture of leg, unspecified Mar-2 6-201 3 [address] eu [place]. [address], [place], [place], [address] . tel: [phone] Referring Provider: Valente Branch, [address], [place], [facility]. tel:[phone] OFFICE/OUTPA TIENT VISIT EST [facility], [address] [facility] [address] [address], [place], [address], [place] tel:[phone] [facility] Bilat shoulder pain (chief complaint) Pain in joint involving shoulder regionDisorders of bursae and tendons in shoulder region, unspecified 3 L[place]Hom[address] eu [place]. [address] [facility] [address] , [place], [place], [address] . tel:[phone] Referring Provider: Valente Branch, [address], [place], [facility]. tel:[phone] OFFICE/OUTPA TIENT VISIT EST [facility], [address], [address], [place] tel:[phone] [facility] IMELDA SHOULDER PAIN (chief complaint) Disorders of bursae and tendons in shoulder region, unspecifiedPain in joint involving shoulder region 3 [address]Hom[address] eu Yad[place]. [address] [facility] [address] , [place], [place], [address] . tel: [phone] Referring Provider: Valente Branch, [facility] [address], [place], [facility]. tel:[phone] [facility], [address] [facility] [address], [address], [place] tel:[phone] [facility] Obesity, MorbidDietary surveillance and counselingHyper tension, UnspecifiedDiso rders of bursae and tendons in shoulder region, unspecifiedDiso rders of bursae and tendons in shoulder region, unspecified 2 Nu Segura. [address] [facility] [address] [place], [place], [address] . tel:[phone] Referring Provider: Valente Branch, [address], [place], [address]. tel:[phone] [facility], [address] [address], [place], [address], [place] tel:[phone] [facility] Obesity, MorbidDietary surveillance and counselingDisor ders of bursae and tendons in shoulder region, unspecified 2 Nu Seg[address]. [address] , [place], [place], [address] . tel:[phone] Referring Provider: Valente Branch, [address], [place], [facility]. tel:[phone] [facility], [address], [address], [place] tel:[phone] [facility] Obesity, MorbidDietary surveillance and counselingHyper tension, Unspecified 2 Nu [address]. [address] , [place], [place], [address] . tel:[phone] Referring Provider: Valente Branch, [address], [place], [address]. tel:[phone] OFFICE/OUTPA TIENT VISIT EST [facility], [address] [address], [place], [address], [place] tel:[phone] [facility] I am really no better (chief complaint) Obesity, MorbidDietary surveillance and counselingBrach ial neuritis or radiculitis nos 3 2 Nu Seg[address]. [address] , [place], [place], [address] . tel:[phone] Referring Provider: Valente Branch, [address], [place], [address]. tel:[phone] [facility], [address] [address], [place], [address], [place] tel:[phone] [facility] I have neck and arm pain (chief complaint) No Information 2 Nu Seg[address]. [address] [place], [place], [address] . tel: [phone] Referring Provider: Valente Branch, [address], [place], [address]. tel:[phone] [facility], [address] [facility] [address] [address], [place], [address], [place] tel:[phone] [facility] R shoulder impingement bursitis (chief complaint) Pain in joint involving shoulder regionDisorders of bursae and tendons in shoulder region, unspecified 2 L'Hom[address] eu Yad[place]. [address] [facility] [address] , [place], [place], [address] . tel: [phone] Referring Provider: [place], [address] [place], [address] . tel:[phone] [facility], [address] [facility] [address], [address], [place] tel:[phone] [facility] right ankle pain (chief complaint) Unspecified arthropathy involving ankle and foot 2 Bagwe John. [address] [facility] [address] , [place], [place], [address] . tel:[phone] Referring Provider: [place], [address] [place], [address] . tel:[phone] [facility], [address] [facility] [address], [address], [place] tel:[phone] [facility] right ankle pain (chief complaint) Unspecified arthropathy involving ankle and foot 2 Bagwe John. [address] [facility] [address] , [place], [place], [address] . tel:[phone] Referring Provider: [place], [address] [place], [address] . tel:[phone] [facility], [address] [facility] [address], [address], [place] tel:[phone] [facility] No Information 2 Bagwe John. [address] , [place], [place], [address] . tel: [phone] [facility], [address] [facility], [place], [address], tel:[phone] [facility] No Information 2 Agustina Quevedo. [address], [place], [place], [address] . tel: [phone] Family History Family Member Type Diagnosis Age At Onset Problem (finding) Family history of Heart disease Problem (finding) Family history of gout Problem (finding) Family history of hyper tension Problem (finding) Family history of rheum atoid arthritis Payers Payer name Insurance type Covered green party ID Jacqueline decker(s) Medicare E2 OT [id number] For Life OT [id number] Social History Type Description Quantity Date Captured Comments Sex Female Smoking Status No Information Chief Complaint And Reason For Visit No Information Reason For Referral Reason For Referral No Information Plan Of Treatment Date Type Action Status Referral Ordered: X-RAY EXAM HIP UNI W PELVIS 2-3 VIEWS LT ordered Referral Ordered: RADEX ELBW COMPL MINIMUM 3 VIEWS LT ordered Referral Ordered: MRI ANY JT UXTR C-MATRL RT shoulder Appointment date/timeframe: 06/09/2013 ordered Referral Ordered: MRI SPI CANAL&CNTS LMBR C-MATRL spine, lumbar Appointment date/timeframe: 04/14/2013 ordered Referral Ordered: FLUOROSCOPIC GUIDANCE NEEDLE PLACEMENT hip Appointment date/timeframe: 04/08/2013 ordered Referral Ordered: MRI ANY JT LXTR C-MATRL LT hip Appointment date/timeframe: 04/02/2013 ordered Referral Ordered: RADEX SPI LUMBOSAC 2/3 VIEWS ordered Referral Ordered: RADEX PELVIS 1/2 VIEWS ordered Referral Ordered: RADEX HIP UNI COMPL MINIMUM 2 VIEWS LT ordered Referral Ordered: RADEX KIKI COMPL MINIMUM 2 VIEWS LT ordered Referral Ordered: RADEX SPI CRV 2/3 VIEWS ordered Referral Ordered: MRI ANY JT LXTR C-MATRL RT Appointment date/timeframe: 05/02/2012 ordered Referral Ordered: RADEX ANKLE COMPL MINIMUM 3 VIEWS RT ordered Referral Ordered: INJECTION LT knee Appointment date/timeframe: 04/26/2012 ordered History Of Present Illness Encounter Date Complaint History Of Prese nt Illness No Information Functional Status Date Functional Assessmen t No Information Instructions Date Instruction Additional Infor arnulfo Discussed surgical options Relat ed to Primary osteoarthritis of left hip Home exercise program. Related t o Primary osteoarthritis of left hip Physical activity counseling Rel ated to Dietary Surveillance Counseling Protective activity Physical activity counseling Rel ated to Dietary Surveillance Counseling Ice as instructed Patient told to see PCP for: persistent reported fever Wear brace as instructed Continue medication as prescribe d Discussed post-opera tive precautions Activity as tolerated Discussed post-opera tive precautions Physical activity counseling Rel ated to Dietary Surveillance Counseling Activity as tolerated Physical activity counseling Rel ated to Dietary Surveillance Counseling Activity as tolerated Physical activity counseling Rel ated to Dietary Surveillance counseling Physical activity counseling Rel ated to Dietary Surveillance counseling Physical activity counseling Rel ated to Dietary Surveillance counseling Activity as tolerated Activity as tolerated Physical activity counseling Rel ated to Dietary Surveillance counseling Physical activity counseling Rel ated to Dietary Surveillance counseling Physical activity counseling Rel ated to Dietary Surveillance counseling Activity as tolerated Activity as tolerated Physical activity counseling Rel ated to Dietary Surveillance counseling Dietary counseling Related to Di etary surveillance counseling Ice as instructed Ice as instructed Activity as tolerated Physical activity counseling Rel ated to Dietary Surveillance counseling Physical activity counseling Rel ated to Dietary Surveillance counseling Activity as tolerated Physical activity counseling Rel ated to Dietary Surveillance counseling Activity as tolerated Physical activity counseling Rel ated to Dietary Surveillance counseling Activity as tolerated OTC anti-inflammatories (NSAIDs) Activity as tolerated OTC Medication Dietary counseling Related to Di etary surveillance counseling Dietary counseling Related to Di etary surveillance counseling Activity as tolerated OTC Medication Dietary counseling Related to Di etary surveillance counseling OTC Medication Activity as tolerated Limit heavy lifting Dietary counseling Related to Di etary surveillance counseling Dietary counseling Related to Di etary surveillance counseling OTC Medication Activity as tolerated Assessments Type Assessment Date No Information Patient Care Teams Name Effective Dates (start - stop) Status Members No Information
--- OUTSIDE RECORDS SUMMARY | 2024-12-23 08:52 | XMS_ITS | Encounter Summary ---
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 Historical Provider Final Res ult documented in this encounter Visit Diagnoses Not on filedocumented in this encounter Care Teams Radiochemical Technician Relationship Specialty Start Date End Date No, Physician PCP - General 11/28/17 12/06/17 Valente Dockery MD [address] [address] PCP - General Family Medicine 12/07/17 documented as of this encounter
--- OUTSIDE RECORDS SUMMARY | 2024-12-23 08:52 | XMS_ITS | Clinical Summary ---
Author Organization [facility] [address] Address [address] [place] [address] Care Team Providers Care Home Connect Lpn Name Role Phone Valente Dockery MD Primary Care Provider Allergies Active Allergy Reactions Criticality Noted Date Comments Gabapentin Other (See comments) Low 10/13/2022 disorientation Latex Blisters High 01/21/2018 Nickel Rash Medium 03/06/2017 Rash Penicillins Unknown,Anaphylaxis High 12/07/2017 Reaction: Anaphylaxis, Medications ALPRAZolam XR (XANAX XR) 2 mg 24 hr tablet Take 1 tablet (2 mg total) by mouth daily 0 12/13/2017 Active atorvastatin (LIPITOR) 20 mg tablet Take 1 tablet (20 mg total) by mouth daily Active baclofen (LIORESAL) 10 mg tablet Take 1 tablet (10 mg total) by mouth nightly 11/29/2017 Active buPROPion XL (WELLBUTRIN XL) 150 mg 24 hr tablet Take 150 mg by mouth 2 (two) times a day. Active citalopram (CeleXA) 40 mg tablet Take 1 tablet (40 mg total) by mouth daily 01/09/2018 Active hydroCHLOROthia zide (HYDRODIURIL) 12.5 mg tablet Take 1 tablet (12.5 mg total) by mouth daily 01/18/2018 Active HYDROcodone-dale taminophen (NORCO) 5-325 mg per tabletIndicatio ns:Pain Take 1 tablet by mouth every 4 hours 12/30/2009 Active lisinopriL (PRINIVIL,ZESTR IL) 10 mg tablet Take 1 tablet (10 mg total) by mouth daily 01/06/2018 Active traZODone (DESYREL) 50 mg tablet Take 1 tablet (50 mg total) by mouth nightly Active uotqrnec-ekn-vu lic acid-biotin 66.7-1,000 mcg tablet Take 1 tablet by mouth daily. Active gabapentin (NEURONTIN) 300 mg capsule Take 1 capsule (300 mg total) by mouth 2 (two) times a day 04/18/[address] (CYMBALTA) 60 mg capsule Take 1 capsule (60 mg total) by mouth every morning Active meloxicam (MOBIC) 15 mg tablet Take 1 tablet (15 mg total) by mouth 03/21/2023 Active Active Problems Problem Noted Date Diagnosed Date Mixed hyperlipidemia 05/18/2023 Nonrheumatic tricuspid valve regurgitation 05/18 CORDOBA (dyspnea on exertion) 05/18/2023 PSVT (paroxysmal supraventricular tachycardia) 0 05/18/2023 Family history of aortic aneurysm 05/18/2023 Family history of premature CAD 05/18/2023 Bilateral carotid bruits 05/18/2023 Low TSH level 01/21/2018 Assessment & Plan (01/21/2018 1:12 PM WATER TREATMENT PLANT OPERATOR): Low TSH DD: Hyperthyroidism ( overt vs sub clinical ) , thyroiditis vs Normal variant vs central hypothyroidism Plan : check TSH , Free T 4, Free T 3 Levels , include TPO ab, TSI levels - further plans based on the repeat levels - follow up in 3 months Morbid obesity with BMI of 40.0-44.9, adult 12/28 Assessment & Plan (01/21/2018 1:12 PM WATER TREATMENT PLANT OPERATOR): Obesity is worsening. Discussed the patient's BMI. The BMI is above average; BMI management plan is completed. General weight loss/lifestyle modification strategies discussed (elicit support from others; identify saboteurs; non-food rewards, etc). Behavioral treatment: stress management. Diet interventions: moderate (500 kCal/d) deficit diet. Informal exercise measures discussed, e.g. taking stairs instead of elevator. Regular aerobic exercise program discussed. Arthralgia of ankle 09/04/2012 Cervical radiculopathy 11/30/2010 Hypertension 11/30/2010 Surgical History Surgery Date Site/Laterality Comments KNEE SURGERY Left Medical History Medical History Date Comments Headache Hypertension Hyperlipidemia History of hip surgery left Status post cervical spinal fusion Depression Family History Medical History Relation Name Comments Heart disease Father Hyperlipidemia Father Hypertension Father Heart disease Mother Hypertension Mother Hypertension Sister Relation Name Status Comments Father Mother Sister Social History Tobacco Use Types Packs/Day Years Used Date Smoking Tobacco: Former Smokeless Tobacco: Never Alcohol Use Standard Drinks/Week Comments Yes 0 (1 standard drink = 0.6 oz pur e alcohol) Personal Safety Answer Date Recorded Getting School Help Needed Not on file 01/21 Comments Unknown Sex and Gender Information Value Date Recorded Sex Assigned at Not on file Legal Sex Female 8:22 AM WATER TREATMENT PLANT OPERATOR Gender Identity Not on file Sexual Orientation Not on file Obstetrics History Last Filed Vital Signs Vital Sign Reading Time Taken Comments Blood Pressure 124/72 05/18/2023 11:16 AM CDT Pulse 68 05/18/2023 11:16 AM CDT Temperature 36.4 ??C (97.6 ??F) 03/06/2017 10:02 AM C DT Respiratory Rate 16 05/18/2023 11:16 AM CDT Oxygen Saturation 98% 05/18/2023 11:16 AM CDT Inhaled Oxygen Concentration - - Weight 108 kg (238 lb) 05/18/2023 11:16 AM CDT Height 154.9 cm (5' 1 ) 05/18/2023 11:16 AM CDT Body Mass Index 44.97 05/18/2023 11:16 AM CDT Plan of Treatment Health Maintenance Due Date Last Done Comments Breast Cancer Screening-Mammogram 1956 Colon Cancer Screening-Colonoscopy 1956 Fall Risk Assessment 1956 Hepatitis C Screening 1956 Osteoporosis Screening-Bone Density Scan 1956 DTaP/Tdap/Td Vaccine (1 - Tdap) 1967 Hepatitis B Screening 1974 Zoster Vaccine (2 of 3) 10/26/2017 08/31/2017 Depression Screening 01/21/2019 01/21/2018 Pneumococcal vaccine 65+ (1 of 1 - PCV) 2021 Well Visit 65+ 2021 Covid-19 Vaccine (4 - 2023-2 5 season) 2024 10/04/2021, 02/28/2021, 02/04/2021 Influenza Vaccine (#1) 2024 , 10/04/2021, 09/17/2020, Additional history exists Insurance MEDICARE [employer] MEDICARE FOR LIFE Care Teams Home Connect Lpn Relationship Specialty Start Date End Date Valente Dockery MD [address] [facility] [address] [place] [address] PCP - General Family Medicine 12/07/17
--- OUTSIDE RECORDS SUMMARY | 2024-12-23 08:52 | XMS_ITS | Referral Summary ---
Author Organization [facility] [address] Address [address] [place] [address] Care Team Providers Care Plastic Cnc Machine Operator Name Role Phone Valente Dockery MD Primary [...] (50 mg total) by mouth nightly Active xjvwpstc-ooy-qk lic acid-biotin 66.7-1,000 mcg tablet Take 1 [...] 01/21/2018 Assessment & Plan (01/21/2018 1:12 PM CELLOPHANER): Low TSH DD: Hyperthyroidism ( overt vs [...] 12/28 Assessment & Plan (01/21/2018 1:12 PM CELLOPHANER): Obesity is worsening. Discussed the patient's BMI. [...] ankle 09/04/2012 Cervical radiculopathy 11/30/2010 Hypertension 11/30/2010 Social History Tobacco Use Types Packs/Day Years [...] on file Legal Sex Female 8:22 AM CELLOPHANER Gender Identity Not on file Sexual Orientation [...] 05/18/2023 11:16 AM CDT Plan of Treatment Not on file Insurance MEDICARE [email or web address] MEDICARE [facility] [employer] [facility] Care Teams Plastic Cnc Machine Operator Relationship Specialty Start Date End Date Valente Dockery MD [address] [facility] [address] [place] [address] PCP - General Family Medicine 12/07/17
--- OUTSIDE RECORDS SUMMARY | 2024-12-23 08:53 | XMS_ITS | Clinical Summary ---
Author Organization [facility] Address [address] [place] [address] Phone Care Team Providers Care Boiler Riveter Name Role Phone Valente Dockery MD Primary Care Provider Medications lisinopril (PRINIVIL, ZESTRIL) 10 MG Tablet Take 10 mg by mouth daily. Active atorvastatin (LIPITOR) 20 MG Tablet Take 20 mg by mouth daily. Active hydroCHLOROthiaz jaquelin 25 MG Tablet Take 25 mg by mouth daily. Active ALPRAZolam (XANAX XR) 1 MG TABLET SR 24 HR Take 2 mg by mouth daily. Active buPROPion (WELLBUTRIN XL) 150 MG XL tablet Take 150 mg by mouth every morning. Active citalopram (CELEXA) 20 MG Tablet Take 20 mg by mouth daily. Active traZODone (DESYREL) 50 MG Tablet Take 50 mg by mouth nightly. Active baclofen (LIORESAL) 10 MG Tablet Take 10 mg by mouth 3 times daily. Active oxyCODONE-acetam inophen (PERCOCET) 5-325 MG Tablet Take 1 Tab by mouth every 4 hours as needed for Pain. Active Active Problems Problem Noted Date Diagnosed Date Grief 11/02/2017 Major depressive disorder, r ecurrent episode, moderate with anxious distress 11/02/2017 Family History Relation Name Status Comments Brother Alive Father Mother Sister Alive Social History Tobacco Use Types Packs/Day Years Used Date Smoking Tobacco: Former Cigarettes Q uit: 11/02/2010 Smokeless Tobacco: Never Alcohol Use Standard Drinks/Week Comments Yes 1 (1 standard drink = 0.6 oz pur e alcohol) about 25 yeasr ago hx of ATOH Comments Unknown Sex and Gender Information Value Date Recorded Sex Assigned at Not on file Legal Sex Female 4:41 PM ITINERANT TEACHER 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 Gender Identity Not on file Sexual Orientation Not on file Plan of Treatment Health Maintenance Due Date Last Done Comments DEXA Bone Density 1955 Hepatitis C Virus (HCV) Screening 1955 TdaP Immunization 1955 Colonoscopy 2001 Colorectal Cancer Screening 2001 Cologuard 2006 Immunochemical Fecal Occult Blood 2006 Mammogram 2006 Pneumococcal Immunization (5 0+ years) (1 of 1 - PCV) 2006 Zoster Immunization (1 of 2) 2006 Influenza Immunization (#1) 2024 SARS-COV-2 Immunization ( - 2023- season) 2024 Respiratory Syncytial Virus (RSV) Immunization (Adult) (1 - 1-dose 75+ series) 2031 Hepatitis B Immunization Aged Out No longer eligible based on patient's age to complete this topic Meningococcal Immunization (ACWY) Aged Out No longer eligible based on patient's age to complete this topic Rotavirus Immunization Aged Out No lo nger eligible based on patient's age to complete this topic Insurance MEDICARE [employer] Care Teams Boiler Riveter Relationship Specialty Start Date End Date Valente Dockery MD [address] [place] [address] PCP - General Family Medicine 11/01/17
[2024-12-23 09:04] LABS: Estimated Glomerular Filt Rate 55
== END 2024-12-23 08:34 | disposition home or self-care (01) ==
PROVIDERS: PCP Family Medicine; Visit Provider Physician Assistant Medical
DX: K57.30 Diverticulosis of large intestine without perforation or abscess without bleeding (principal); Z98.890 Other specified postprocedural states; Z90.49 Acquired absence of other specified parts of digestive tract; Z98.1 Arthrodesis status
CPT/HCPCS: 74177; Q9967

== ENCOUNTER 2024-12-30 14:41 | Outpatient (CLI) | payer MEDICARE, OTHER, SELFPAY ==
--- NOTE | ~2024-12-30 | CT_ITS ---
EXAMINATION:CT lung screening DATE: 12/30/2024 14:55 INDICATION: Personal history of nicotine dependence. Smoker who quit 12 years ago with 30 pack year h istory. TECHNIQUE: Computed tomography (CT) of the chest was performed without intravenous contrast. Automate d exposure control and iterative reconstruction technique were employed. The dose-length product (DLP ) was 197.79 mGy-cm. COMPARISON: Chest CT 09/11/2023 FINDINGS: Calcified right lung nodules and calcified right hilar lymph nodes are consistent with old granulomatous disease. There is minimal atelectasis bilaterally. No pleural effusion. The heart size is normal. No pericardial effusion. There are changes of cholecystectomy. There are changes of anteri or fusion procedure in cervical spine. There is severe thoracic spondylosis. IMPRESSION: 1. Lung-RADS category 1: Negative. Continue annual screening with noncontrast low-dose chest CT in 12 months. Reviewed, dictated and finalized at location A. ICE MEMBER IMPRESSION: 1. Lung-RADS category 1: Negative. Continue annual screening with noncontrast l ow-dose chest CT in 12 months.
--- OUTSIDE RECORDS SUMMARY | 2024-12-30 14:44 | XMS_ITS | Referral Summary ---
Author Organization [facility] [employer] Address [address] [place] [address] Care Team Providers Care Business Leader Name Role Phone Unavailable Primary Care Provider Unavailabl e Source Comments [facility] [employer] [employer],non-owned Affiliates and Associated Physician Practices is amultiple site organization consisting of ambulatory clinics and hospital sitesin [place], [place], [place]. This disclosure is being madepursuant to the Care Everywhere program and may not contain all information available regarding this patient. Last updated 18.[facility] Allergies Active Allergy Reactions Criticality Noted Date [...] Comments Blood Pressure 132/83 12/30/2009 6:05 AM REGISTERED VASCULAR TECHNOLOGIST (RVT) Pulse 77 12/30/2009 6:05 AM REGISTERED VASCULAR TECHNOLOGIST (RVT) Temperature 36.3 ??C (97.4 ??F) 12/30/2009 6:05 AM CS T Respiratory Rate 16 12/30/2009 6:05 AM REGISTERED VASCULAR TECHNOLOGIST (RVT) Oxygen Saturation 95% 12/30/2009 6:05 AM REGISTERED VASCULAR TECHNOLOGIST (RVT) Inhaled Oxygen Concentration - - Weight 100.5 kg (221 lb 9 oz) 12/30/2009 6:05 AM REGISTERED VASCULAR TECHNOLOGIST (RVT) Height 154.9 cm (5' 1 ) 12/30/2009 6:05 AM REGISTERED VASCULAR TECHNOLOGIST (RVT) Body Mass Index 41.86 12/30/2009 6:05 AM REGISTERED VASCULAR TECHNOLOGIST (RVT) Plan of Treatment Not on file
--- OUTSIDE RECORDS SUMMARY | 2024-12-30 14:44 | XMS_ITS | Patient Health Summary ---
Author Organization [facility] Address [address] [place] [address] Care Team Providers Care Mattress Specialist Name Role Phone Unavailable Primary Care Provider Unavailabl e Note from [facility],non-owned Affiliates and Associated Physician Practices is amultiple site organization consisting of ambulatory clinics and hospital sitesin [place], [place], [place] and [place]. This disclosure is being madepursuant to the Care Everywhere program and may not contain all information available regarding this patient. Last updated 18.[facility] Allergies * Penicillins(Anaphylaxis) Medications * Be aware [...] Comments Blood Pressure 132/83 12/30/2009 6:05 AM HOGSHEAD PRESS OPERATOR Pulse 77 12/30/2009 6:05 AM HOGSHEAD PRESS OPERATOR Temperature 36.3 ??C (97.4 ??F) 12/30/2009 6:05 AM CS T Respiratory Rate 16 12/30/2009 6:05 AM HOGSHEAD PRESS OPERATOR Oxygen Saturation 95% 12/30/2009 6:05 AM HOGSHEAD PRESS OPERATOR Inhaled Oxygen Concentration - - Weight 100.5 kg (221 lb 9 oz) 12/30/2009 6:05 AM HOGSHEAD PRESS OPERATOR Height 154.9 cm (5' 1 ) 12/30/2009 6:05 AM HOGSHEAD PRESS OPERATOR Body Mass Index 41.86 12/30/2009 6:05 AM HOGSHEAD PRESS OPERATOR Procedures * CARDIAC EKG ORDER(Performed 01/18/2010) * XR FINGER(S) LEFT(Performed 01/03/2010) Performed for Pain in Soft Tissues of Limb * CARDIAC EKG ORDER(Performed 12/31/2009) * EMG(Performed 11/24/2009) * IMAGING/RADIOLOGY/XRAY RESULTS ORDER(Performed 11/12/2009) Results * CARDIAC EKG ORDER (01/18/2010 4:13 PM HOGSHEAD PRESS OPERATOR) Only the most recent of2 resultswithin the time period is included. Narrative 01/18/2010 4:13 PM HOGSHEAD PRESS OPERATOR Ordered by an unspecified provider. Transcriptions Document, Scanned - 12/30/2009 12:00 AM HOGSHEAD PRESS OPERATOR Scanned Document CARDIAC SERVICES ORD ERABLES * XR FINGER(S) LEFT (01/03/2010 10:02 AM HOGSHEAD PRESS OPERATOR) Anatomical Region Laterality Modality Upper Extremity, Wrist / Hand Ra diographic Imaging 01/03/2010 1:01 PM HOGSHEAD PRESS OPERATOR Narrative 01/03/2010 1:49 PM HOGSHEAD PRESS OPERATOR Three views left fifth finger Clinical Indication: [...]
--- OUTSIDE RECORDS SUMMARY | 2024-12-30 14:45 | XMS_ITS | Clinical Summary ---
Author Organization [facility] Address [address] [place] [address] Care Team Providers Care Regional Geodetic Advisor Name Role Phone Unavailable Primary Care Provider Unavailabl e Source Comments [facility],non-owned Affiliates and Associated Physician Practices is amultiple site organization consisting of ambulatory clinics and hospital sitesin [place], [place], [place] and [place]. This disclosure is being madepursuant to the Care Everywhere program and may not contain all information available regarding this patient. Last updated 18.[facility] Allergies Active Allergy Reactions Criticality Noted Date [...] Comments Blood Pressure 132/83 12/30/2009 6:05 AM V BELT CURER Pulse 77 12/30/2009 6:05 AM V BELT CURER Temperature 36.3 ??C (97.4 ??F) 12/30/2009 6:05 AM CS T Respiratory Rate 16 12/30/2009 6:05 AM V BELT CURER Oxygen Saturation 95% 12/30/2009 6:05 AM V BELT CURER Inhaled Oxygen Concentration - - Weight 100.5 kg (221 lb 9 oz) 12/30/2009 6:05 AM V BELT CURER Height 154.9 cm (5' 1 ) 12/30/2009 6:05 AM V BELT CURER Body Mass Index 41.86 12/30/2009 6:05 AM V BELT CURER Plan of Treatment Health Maintenance Due Date [...]
--- OUTSIDE RECORDS SUMMARY | 2024-12-30 14:45 | XMS_ITS | Encounter Summary ---
Author Organization [facility] Address [address] [place] [address] Care Team Providers Care Airline Pilot Flight Instructor Name Role Phone Panfilo Paige MD Primary Care Provider Encounter Details Date [...] on filedocumented in this encounter Care Teams Airline Pilot Flight Instructor Relationship Specialty Start Date End Date Panfilo Paige MD [address] [place] [id number] PCP - General 11/29/09 12/01/09 documented as of this encounter
--- OUTSIDE RECORDS SUMMARY | 2024-12-30 14:45 | XMS_ITS | Continuity of Care Document ---
Author Organization [facility] Address [address] [address] [place] [address] Phone Care Team Providers Care Work Environment Safety Inspector Name Role Phone Emy Rolle MD Unavailable [...] Providers Copied on Encounter [facility], [address], [facility], tel:[phone] [facility] No Information [address] [address] [place], [place], [address] . tel: [phone] OFFICE/OUTPA TIENT VISIT EST [facility], [address], [address], tel:[phone] [facility] Pain in left hipPrimary osteoarthritis of left hip 0 [address] [address] [facility], [place], [place], [address] . tel: [phone] OFFICE/OUTPA TIENT VISIT EST [facility], [address], [facility], tel:[phone] [facility] Aftercare following surgery of the musculoskeletal system, necDisorders of bursae and tendons in shoulder region, unspecified 0-201 4 [address], [place], [place], [address] . tel: [phone] Referring Provider: Valente Branch, [address], [place], [place], [facility]. tel:[phone] [facility], [address], [place], [address], [place] tel:[phone] [facility] RT SHOULDER (chief complaint) S/P rotator cuff repairAftercare following surgery of the musculoskeletal system, nec Feb- 4 [address], [place], [place], [address] . tel: [phone] Referring Provider: Valente Branch, [address], [place], [facility]. tel:[phone] [facility], [address] [facility] [place] [facility] [address], [place], [address], [place] tel:[phone] [facility] Rt shoulder RCR (chief complaint) Aftercare following surgery of the musculoskeletal system, necS/P rotator cuff repairAcromiocl avicular joint arthritisDisord ers of bursae and tendons in shoulder region, unspecified Jan-2 4 Rosa Alegria. [address], [place], [address]. tel: [phone] Referring Provider: aVlente Branch, [address], [place], [facility]. tel:[phone] OFFICE/OUTPA TIENT VISIT EST [facility], [address], [place], [address], [place] tel:[phone] [facility] RT SHOULDER (chief complaint) Complete rupture of rotator cuffAcromioclav icular joint arthritis Jan-0 4 [address], [place], [place], [address] . tel: [phone] Referring Provider: Valente Branch, [address], [place], [address]. tel:[phone] OFFICE/OUTPA TIENT VISIT EST [facility], [address], [place], [address], [place] tel:[phone] [facility] Rt shoulder a/a (chief complaint) Disorders of bursae and tendons in shoulder region, unspecifiedMedi al epicondylitisCu bital tunnel syndrome on right 4 [address], [place], [place], [address] . tel:[phone] Referring Provider: Valente Branch, [address], [place], [facility]. tel:[phone] OFFICE/OUTPA TIENT VISIT EST [facility], [address], [place], [address], [place] tel:[phone] [facility] LT HIP; RT SHOULDER (chief complaint) Disorders of bursae and tendons in shoulder region, unspecified 3 [address], [place], [place], [address] . tel:[phone] Referring Provider: Valente Branch, [address], [place], [address]. tel:[phone] OFFICE/OUTPA TIENT VISIT EST [facility], [address], [place], [address], [place] tel:[phone] [facility] RT SHOULDER (chief complaint) Aftercare following surgery of the musculoskeletal system, necComplete rupture of rotator cuffDisorders of bursae and tendons in shoulder region, unspecifiedEnth esopathy of hip region 3 Rosa Alegria. [address], [place], [address]. tel:[phone] Referring Provider: Valente Branch, [address], [place], [address]. tel:[phone] [facility], [address], [place], [address], [place] tel:[phone] [facility] Aftercare following surgery of the musculoskeletal system, necComplete rupture of rotator cuffOther synovitis and tenosynovitisEn thesopathy of hip region 3 [address] , [place], [place], [address] . tel:[phone] Referring Provider: Valente Branch, [address], [place], [address]. tel:[phone] [facility], [address] [facility] [address], [address], [place] tel:[phone] [facility] RT SHOULDER (chief complaint) Aftercare following surgery of the musculoskeletal system, necComplete rupture of rotator cuffDisorders of bursae and tendons in shoulder region, unspecifiedAfte rcare following surgery of the musculoskeletal system, nec 3 [address]. [address] [facility] [address] , [place], [place], [address] . tel: [phone] Referring Provider: Valente Branch, [address], [place], [address]. tel:[phone] OFFICE/OUTPA TIENT VISIT EST [facility], [address] [facility] [address] [address], [place], [address], [place] tel:[phone] [facility] Rt shoulder MRI results (chief complaint) Pain [...] sprainSubscapul johana (muscle) sprain 3 [address] , [place], [place], [address] . tel:[phone] Referring Provider: Valente Branch, [address], [place], [facility]. tel:[phone] OFFICE/OUTPA TIENT VISIT EST [facility], [address] [facility] [address], [address], [place] tel:[phone] [facility] Rt shoulder pain (chief complaint) Rotator cuff (capsule) sprainComplete rupture of rotator cuffDisorders of bursae and tendons in shoulder region, unspecifiedPain in joint involving shoulder regionRotator cuff (capsule) sprainComplete rupture of rotator cuff May-0 9-201 3 [address] [address] [facility] [address] , [place], [place], [address] . tel:[phone] Referring Provider: Valente Branch, [address], [place], [facility]. tel:[phone] OFFICE/OUTPA TIENT VISIT EST [facility], [address], [address], [place] tel:[phone] [facility] fu Lt hip pain (chief complaint) Enthesopathy of hip regionOsteoarth rosis, unspecified whether generalized or localized, involving pelvic region and thighSpinal stenosis of lumbar regionRadiculit is, Thoracic or LumbarDisorders of bursae and tendons in shoulder region, unspecified Alexx-0 201 3 [address] [address] [facility] [address] [place], [place], [address] . tel:[phone] Referring Provider: Valente Branch, [address], [place], [facility]. tel:[phone] OFFICE/OUTPA TIENT VISIT EST [facility], [address] [facility] [address], [address], [place] tel:[phone] [facility] LBP and left hip pain (chief complaint) Radiculitis, Thoracic or LumbarSpinal stenosis of lumbar regionOsteoarth rosis, unspecified whether generalized or localized, involving pelvic region and thigh May-2 2-201 3 [place]. [address] [place], [place], [address] . tel:[phone] Referring Provider: Valente Branch, [address] [place] [address] [address], [place], [facility]. tel:[phone] OFFICE/OUTPA TIENT VISIT EST [facility], [address], [address], tel:[phone] [facility] Left hip pain (chief complaint)LB P and sciatica (chief complaint) Radiculitis, Thoracic or LumbarDegenerat ion of lumbar or lumbosacral intervertebral discAcquired spondylolisthes isPain in joint involving pelvic region and thighOsteoarthr osis, unspecified whether generalized or localized, involving pelvic region and thigh May-1 4-201 3 Mich Joshiok. [address] [facility], [place], [place], [address] . tel:[phone] Referring Provider: Valente Branch, [facility] [address], [place], [facility]. tel:[phone] [facility], [address], [address], [place] tel:[phone] [facility] Pain in joint involving pelvic region and thigh May-1 3-201 3 Mich Joshiok. [address] [place], [place], [address] . tel:[phone] OFFICE/OUTPA TIENT VISIT EST [facility], [address], [address], [place] tel:[phone] [facility] AVN (avascular necrosis of bone)Pain in joint involving pelvic region and thigh May-0 6-201 3 Mich Joshiok. [address] [place], [place], [address] . tel:[phone] Referring Provider: Valente Branch, [facility] [address], [place], [facility]. tel:[phone] OFFICE/OUTPA TIENT VISIT NEW [facility], [address], [address], [place] tel:[phone] [facility] LBP and left sciatica (chief complaint)Le ft hip pain (chief complaint) Hypertension, UnspecifiedEnth esopathy of hip regionDegenerat ion of lumbar or lumbosacral intervertebral discDegeneratio n of lumbar or lumbosacral intervertebral discEnthesopath y of hip regionRadiculit is, Thoracic or Lumbar Apr-2 3-201 3 Mich Simmons. [address] [facility] [address] , [place], [place], [address] . tel:[phone] Referring Provider: Emy Branch, [address] [facility] [address] , [place], [address] . tel:[phone] [facility], [address], [address], [place] tel:[phone] [facility] Sprain of other specified sites of hip and thigh Apr-1 5-201 3 [address] Emy. [address] [facility] , [place], [place], [address] . tel:[phone] OFFICE/OUTPA TIENT VISIT EST [facility], [address] [address], [place], [address], [place] tel:[phone] [facility] LT HIP (chief complaint) Hamstring tendonitis at origin Apr-1 0-201 3 [address] Emy. [address] [facility] [place], [address] . tel:[phone] Referring Provider: Valente Branch, [address], [place], [address]. tel:[phone] OFFICE/OUTPA TIENT VISIT EST [facility], [address], [address], [place] tel:[phone] [facility] LT ANKLE (chief complaint) Fracture of lateral malleolus, closedAftercare for healing traumatic fracture of leg, unspecified Mar-2 6-201 3 [address]. [address], [place], [place], [address] . tel: [phone] Referring Provider: Valente Branch, [address], [place], [facility]. tel:[phone] OFFICE/OUTPA TIENT VISIT EST [facility], [address] [facility] [address] [address], [place], [address], [place] tel:[phone] [facility] Bilat shoulder pain (chief complaint) Pain in joint involving shoulder regionDisorders of bursae and tendons in shoulder region, unspecified 3 [address]. [address] [facility] [address] , [place], [place], [address] . tel:[phone] Referring Provider: Valente Branch, [address], [place], [facility]. tel:[phone] OFFICE/OUTPA TIENT VISIT EST [facility], [address], [address], [place] tel:[phone] [facility] IMELDA SHOULDER PAIN (chief complaint) Disorders of bursae and tendons in shoulder region, unspecifiedPain in joint involving shoulder region 3 [address]. [address] [facility] [address] , [place], [place], [address] . tel: [phone] Referring Provider: Valente Branch, [facility] [address], [place], [facility]. tel:[phone] [facility], [address] [facility] [address], [address], [place] tel:[phone] [facility] Obesity, MorbidDietary surveillance and counselingHyper tension, UnspecifiedDiso rders of bursae and tendons in shoulder region, unspecifiedDiso rders of bursae and tendons in shoulder region, unspecified 2 Nu Segura. [address] [facility] [address] [place], [place], [address] . tel:[phone] Referring Provider: Valente Branch, [address], [place], [address]. tel:[phone] [facility], [address] [address], [place], [address], [place] tel:[phone] [facility] Obesity, MorbidDietary surveillance and counselingDisor ders of bursae and tendons in shoulder region, unspecified 2 [address]. [address] , [place], [place], [address] . tel:[phone] Referring Provider: Valente Branch, [address], [place], [facility]. tel:[phone] [facility], [address], [address], [place] tel:[phone] [facility] Obesity, MorbidDietary surveillance and counselingHyper tension, Unspecified 2 [address]. [address] , [place], [place], [address] . tel:[phone] Referring Provider: Valente Branch, [address], [place], [address]. tel:[phone] OFFICE/OUTPA TIENT VISIT EST [facility], [address] [address], [place], [address], [place] tel:[phone] [facility] I am really no better (chief complaint) Obesity, MorbidDietary surveillance and counselingBrach ial neuritis or radiculitis nos 3 2 [address] , [place], [place], [address] . tel:[phone] Referring Provider: Valente Branch, [address], [place], [address]. tel:[phone] [facility], [address] [address], [place], [address], [place] tel:[phone] [facility] I have neck and arm pain (chief complaint) No Information 2 [address]. [address] [place], [place], [address] . tel: [phone] Referring Provider: Valente Branch, [address], [place], [address]. tel:[phone] [facility], [address] [facility] [address] [address], [place], [address], [place] tel:[phone] [facility] R shoulder impingement bursitis (chief complaint) Pain in joint involving shoulder regionDisorders of bursae and tendons in shoulder region, unspecified 2 [address]. [address] [facility] [address] , [place], [place], [address] . tel: [phone] Referring Provider: [place], [address] [place], [address] . tel:[phone] [facility], [address] [facility] [address], [address], [place] tel:[phone] [facility] right ankle pain (chief complaint) Unspecified arthropathy involving ankle and foot 2 Bagwe John. [address] [facility] [address] , [place], [place], [address] . tel:[phone] Referring Provider: [place], [address] [place], [address] . tel:[phone] [facility], [address] [facility] [address], [address], [place] tel:[phone] [facility] right ankle pain (chief complaint) Unspecified arthropathy involving ankle and foot 2 Bagwe John. [address] [facility] [address] , [place], [place], [address] . tel:[phone] Referring Provider: [place], [address] [place], [address] . tel:[phone] [facility], [address] [facility] [address], [address], [place] tel:[phone] [facility] No Information 2 Bagwe John. [address] , [place], [place], [address] . tel: [phone] [facility], [address] [facility], [place], [address], tel:[phone] [facility] No Information 2 Agustina Quevedo. [address], [place], [place], [address] . tel: [phone] Family History Family Member Type Diagnosis Age At Onset Problem (finding) Family history of Heart disease Problem (finding) Family history of gout Problem (finding) Family history of hyper tension Problem (finding) Family history of rheum atoid arthritis Payers Payer name Insurance type Covered libertarian ID Jacqueline decker(s) Medicare E2 OT [id number] For Life OT [id number] Social History Type Description Quantity Date Captured [...] as prescribe d Discussed post-opera tive precautions Discussed post-opera tive precautions Activity as tolerated Physical activity counseling Rel [...] counseling Activity as tolerated Activity as tolerated OTC anti-inflammatories (NSAIDs) OTC Medication Dietary counseling Related to Di [...]
--- OUTSIDE RECORDS SUMMARY | 2024-12-30 14:47 | XMS_ITS | Clinical Summary ---
Author Organization [facility] Address [address] [place] [address] Care Team Providers Care Television Installer Helper Name Role Phone Panfilo Dockery MD Primary Care Provider [phone] Social History Tobacco Use Types Packs/Day Years [...] age to complete this topic Care Teams Television Installer Helper Relationship Specialty Start Date End Date Panfilo Dockery MD [address] [place] [address] PCP - General 03/14/12
--- OUTSIDE RECORDS SUMMARY | 2024-12-30 14:47 | XMS_ITS | Referral Summary ---
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 Discussed the patient's BMI. 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
--- OUTSIDE RECORDS SUMMARY | 2024-12-30 14:47 | XMS_ITS | Clinical Summary ---
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
--- OUTSIDE RECORDS SUMMARY | 2024-12-30 14:47 | XMS_ITS | Clinical Summary ---
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 Discussed the patient's BMI. 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
--- OUTSIDE RECORDS SUMMARY | 2024-12-30 14:47 | XMS_ITS | Encounter Summary ---
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
--- OUTSIDE RECORDS SUMMARY | 2024-12-30 14:47 | XMS_ITS | Encounter Summary ---
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
--- OUTSIDE RECORDS SUMMARY | 2024-12-30 14:47 | XMS_ITS | Continuity of Care Document ---
Author Organization [id number] - [facility] Address [address] [facility] [address] [place] [address] Phone Care Team Providers Care Diamond Sander Name Role Phone Ryne Matute DO Unavailable Unavailable Procedures Procedure Date CARDIOVASCULAR STRESS TEST SUPERVISION O NLY CARDIOVASCULAR STRESS TEST I&R ONLY Advance Directives Directive Yes / No Effective Date File Name No Information Encounters Encounter Description Practice Location Reason(s) For Visit Diagnoses Date Provider Providers Copied on Encounter [id number] - [place] [facility], [address] [facility] [address], [place], [address], tel:[phone] [facility] No Information Giovani Michele. [address], [place], [place], [id number]. tel:[phone] Referring Provider: Ernst Kemp, [address] [place] [address] [address], [place], [address] . tel:[phone] Family History Family Member Type Diagnosis Age At Onset No Information Payers Payer name Insurance type Covered alliance party ID Authorkaighada nikidamaso(s) [id number] Social History Type Description Quantity Date Captured [...]
== END 2024-12-30 14:42 | disposition home or self-care (01) ==
PROVIDERS: PCP Family Medicine; Visit Provider Physician Assistant Medical
DX: Z12.2 Encounter for screening for malignant neoplasm of respiratory organs (principal); Z87.891 Personal history of nicotine dependence
CPT/HCPCS: 71271

== ENCOUNTER 2025-03-24 12:44 | Outpatient (CLI) | payer MEDICARE, OTHER, SELFPAY ==
--- NOTE | ~2025-03-24 | US_ITS ---
EXAMINATION: US soft tissue head and neck DATE: 03/24/2025 13:08 INDICATION: Possible abnormality posterior to the right ear TECHNIQUE: Multiple grayscale and Doppler ultrasound images of the right retroauricular region of con cern were obtained. COMPARISON: None FINDINGS: Appearance to the subcutaneous fat and underlying musculature at the region of concern. No pathologic ally enlarged lymph nodes, lipoma or other abnormal masses or fluid collections identified. IMPRESSION: 1. Normal study. No correlate identified for reported palpable abnormality posterior to the right ear . Reviewed, dictated and finalized at location B. IMPRESSION: 1. Normal study. No correlate identified for reported palpable abnormality post erior to the right ear.
--- OUTSIDE RECORDS SUMMARY | 2025-03-24 13:46 | XMS_ITS | Clinical Summary ---
Author Organization [facility] [employer] Address [address] [place] [address] Care Team Providers Care Turn Out Name Role Phone Unavailable Primary Care Provider Unavailabl e Source Comments [facility] [employer],non-owned Affiliates and Associated Physician Practices is amultiple site organization consisting of ambulatory clinics and hospital sitesin [place], [place], [place] and [place]. This disclosure is being madepursuant to the Care Everywhere program and may not contain all information available regarding this patient. Last updated 18.[facility] [employer] Allergies Active Allergy Reactions Criticality Noted Date Comments Penicillins Anaphylaxis 11/29/2009 Medications * Be aware that medications may not be up to date on this document. Alwaysverify current medications with the patient. lisinopril (PRINIVIL; ZESTRIL) 20 MG tablet daily [...] daily with breakfast. Takes extended release Active hydrocodone-dale taminophen (NORCO) 5-325 MG tablet Take 1 Tab by mouth every 4 hours as needed for Pain. 30 0 0 Active hydrocodone-dale taminophen (NORCO) 5-325 MG tablet Take 1 Tab by mouth every 4 hours as needed for Pain. 30 0 0 Active BIOTENE/CALCIUM MT by Mouth/Throat route. 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 Not on file Not on file Not on file Last Filed Vital Signs Vital Sign Reading Time Taken Comments Blood Pressure 132/83 12/30/2009 6:05 AM TWINE REELING MACHINE OPERATOR Pulse 77 12/30/2009 6:05 AM TWINE REELING MACHINE OPERATOR Temperature 36.3 C (97.4 F) 12/30/2009 6:05 AM TWINE REELING MACHINE OPERATOR Respiratory Rate 16 12/30/2009 6:05 AM TWINE REELING MACHINE OPERATOR Oxygen Saturation 95% 12/30/2009 6:05 AM TWINE REELING MACHINE OPERATOR Inhaled Oxygen Concentration - - Weight 100.5 kg (221 lb 9 oz) 12/30/2009 6:05 AM TWINE REELING MACHINE OPERATOR Height 154.9 cm (5' 1 ) 12/30/2009 6:05 AM TWINE REELING MACHINE OPERATOR Body Mass Index 41.86 12/30/2009 6:05 AM TWINE REELING MACHINE OPERATOR Plan of Treatment Health Maintenance Due Date [...] 60-74 years 1-dose series) 2016 COVID-19 VACCINE (1 - 2023-2 5 season) 2024 DEPRESSION SCREENING 11/26/2024 INFLUENZA VACCINE (Season Ended) 2025 HEPATITIS B VACCINE Aged Out No longe r eligible based on patient's age to complete this topic HIB VACCINE Aged Out No longer eligi ble based on patient's age to complete this topic HPV VACCINE Aged Out No longer eligi ble based on patient's age to complete this topic MENINGOCOCCAL (Group B) VACC INE SHARED DECISION-MAKING Aged Out No longer eligibl e based on patient's age to complete this topic MENINGOCOCCAL GROUPS A/C/Y/W VACCINE Aged Out No longer eligible b ased on patient's age to complete this topic
--- OUTSIDE RECORDS SUMMARY | 2025-03-24 13:46 | XMS_ITS | Encounter Summary ---
Author Organization [facility] Address [address] 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
--- OUTSIDE RECORDS SUMMARY | 2025-03-24 13:46 | XMS_ITS | Referral Summary ---
Author Organization [facility] [address] Address [address] [place] [address] Care Team Providers Care Lens Molding Equipment Operator Name Role Phone Valente Dockery MD Primary Care Provider Encounters Date Type Department Care Team Description 03/03/2025 10:00 AM CDT - 03/03/2025 11:30 AM CDT Surgery [facility] Cardiac Catheterization Lab [address] [place] [address] Contreras Serrano MD LEFT HEART CATHETERIZATION WITH CORONARY ANGIOGRAPHY AND WITH OR WITHOUT LEFT VENTRICULOGRAM [id number] 03/03/2025 8:10 AM CDT - 03/03/2025 1:04 PM CDT Hospital Encounter [facility] Cardiac Catheterization Lab [address] [place] [address] Contreras Serrano MD Angina pectoris, unstable (HCC) Discharge Disposition: Discharge to home or self care 02/13/2025 Telephone [facility] Cardiology [address] [place] [phone] Contreras Serrano MD 02/13/2025 8:30 AM CDT Office Visit [facility] Cardiology [address] [place] [phone] Contreras Serrano MD Mixed hyperlipidemia (Primary Dx); PSVT (paroxysmal supraventricular tachycardia); Primary hypertension; Family history of premature CAD; Family history of aortic aneurysm; CORDOBA (dyspnea on exertion); Exertional chest pain from Last 3 Months Allergies Active Allergy Reactions Criticality Noted Date Comments Adhesive Rash Medium 02/13/2025 Latex Blisters High 01/21/2018 Nickel Rash Medium 03/06/2017 Rash Penicillins Unknown,Anaphylaxis High 12/07/2017 Reaction: Anaphylaxis, Medications ALPRAZolam XR (XANAX XR) 2 mg 24 hr tablet Take 1 tablet (2 mg total) by mouth daily 0 8 Active atorvastatin (LIPITOR) 20 mg tablet Take 1 tablet (20 mg total) by mouth daily Active baclofen (LIORESAL) 10 mg tablet Take 1 tablet (10 mg total) by mouth nightly 8 Active buPROPion XL (WELLBUTRIN XL) 150 mg 24 hr tablet Take 150 mg by mouth 2 (two) times a day. Active citalopram (CeleXA) 40 mg tablet Take 1 tablet (40 mg total) by mouth daily 8 Active HYDROcodone-acetami nophen (NORCO) 5-325 mg per tabletIndications:P ain Take 1 tablet by mouth every 4 hours 0 Active [id number] acid-biotin 66.7-1,000 mcg tablet Take 1 tablet by mouth daily. Active gabapentin (NEURONTIN) 300 mg capsule Take 1 capsule (300 mg total) by mouth 2 (two) times a day [address] (CYMBALTA) 60 mg capsule Take 1 capsule (60 mg total) by mouth every morning Active meloxicam (MOBIC) 15 mg tablet Take 1 tablet (15 mg total) by mouth 3 Active aspirin 81 mg enteric coated tablet Take 1 tablet (81 mg total) by mouth daily 3 Active Linzess 72 mcg capsule Take 1 capsule (72 mcg total) by mouth daily 5 Active lisinopril-hydroCHL OROthiazide (ZESTORETIC) 10-12.5 mg per tablet Take 1 tablet by mouth daily 5 Active ondansetron ODT (ZOFRAN-ODT) 4 mg disintegrating tablet Take 1 tablet (4 mg total) by mouth every 8 (eight) hours as needed 5 Active oxyCODONE-acetamino phen (PERCOCET) 5-325 mg per tablet Take 1 tablet by mouth every 6 (six) hours as needed for pain 4 Active Wegovy 2.4 mg/0.75 mL auto-injector Inject 2.4 mg under the skin every 7 days 5 Active traZODone (DESYREL) 100 mg tablet Take 1 tablet (100 mg total) by mouth nightly 5 Active Active Problems Problem Noted Date Diagnosed Date Exertional chest pain 02/13/2025 Angina pectoris, unstable 02/13/2025 Mixed hyperlipidemia 05/18/2023 CORDOBA (dyspnea on exertion) 05/18/2023 PSVT (paroxysmal supraventricular tachycardia) 0 05/18/2023 Family history of aortic aneurysm 05/18/2023 Family history of premature CAD 05/18/2023 Bilateral carotid bruits 05/18/2023 Low TSH level 01/21/2018 Assessment & Plan (01/21/2018 1:12 PM MOUNT LOADER): Low TSH DD: Hyperthyroidism ( overt vs [...] 12/28 Assessment & Plan (01/21/2018 1:12 PM MOUNT LOADER): Obesity is worsening. Discussed the patient's BMI. [...] ankle 09/04/2012 Cervical radiculopathy 11/30/2010 Hypertension 11/30/2010 Resolved Problems Problem Noted Date Diagnosed Date Resolved Date Nonrheumatic tricuspid valve regurgitation 05/18/2023 02/13/2025 Social History Tobacco Use Types Packs/Day Years Used Date Smoking Tobacco: Former Smokeless Tobacco: Never Alcohol Use Standard Drinks/Week Comments Yes 0 (1 standard drink = 0.6 oz pur e alcohol) AUDIT-C Answer Date Recorded Frequency of Alcohol Consumption Not on file 03/03/2025 Q2: How many drinks containi ng alcohol do you have on a typical day when you are drinking? Patient does not drink Frequency of Binge Drinking Not on file 06/2025 Personal Safety Answer Date Recorded Have you ever been in or are you currently in a harmful physical or emotional relationship or is someone making you feel afraid or unsafe? Denies 03/03/2025 Comments Unknown Sex and Gender Information Value Date Recorded Sex Assigned at Not on file Legal Sex Female 8:22 AM MOUNT LOADER Gender Identity Not on file Sexual Orientation Not on file Last Filed Vital Signs Vital Sign Reading Time Taken Comments Blood Pressure 122/59 03/03/2025 12:00 PM CDT Pulse 82 03/03/2025 12:10 PM CDT Temperature 36.8 C (98.2 F) 03/03/2025 8:59 AM CDT Respiratory Rate 16 03/03/2025 8:59 AM CDT Oxygen Saturation 100% 03/03/2025 12:10 PM CDT Inhaled Oxygen Concentration - - Weight 87.8 kg (193 lb 8 oz) 03/03/2025 8:59 AM CDT Height 152.4 cm (5') 03/03/2025 8:59 AM CDT Body Mass Index 37.79 03/03/2025 8:59 AM CDT Plan of Treatment Not on file Medical Devices Implanted Type Area Coal Mine Inspector Device Identifier Shelf Expiration Date Model / Serial / Lot [facility] Device Closure Vascade Od5 Fr Femoral Artery [id number] - [id number] Implanted:Qty: 1 on 03/03/2025 by Contreras Serrano MD at [facility] [email or web address] [facility] 06/23/2026 [id number] / / [id number] Procedures Procedure Name Priority Date/Time Associated Diagnosis Comments LEFT HEART CATHETERIZATION WITH CORONARY ANGIOGRAPHY AND WITH AND WITHOUT LEFT VENTRICULOGRAM Routine 03/03/2025 10:10 AM CDT Angina pectoris, unstable (HCC) MODERATE SEDATION SAME MD PERSAUD ADDL 15 MIN [id number] 03/03/2025 9:23 AM CDT Angina pectoris, unstable (HCC) MODERATE SEDATION FIRST 15MIN 5+ YEAR [id number] 03/03/2025 9:23 AM CDT Angina pectoris, unstable (HCC) CBC WITHOUT DIFFERENTIAL STAT 03/03/2025 8:55 AM CDT EGFR STAT 03/03/2025 8:54 AM CDT COMPREHENSIVE METABOLIC PANEL STAT 03/03/2025 8:54 AM CDT POCT LIPID PANEL Routine 02/13/2025 8:44 AM CDT Mixed hyperlipidemia from Last 3 Months Results * LEFT HEART CATHETERIZATION WITH CORONARY ANGIOGRAPHY AND WITH AND WITHOUT LEFT VENTRICULOGRAM (03/03/2025 10:10 AM CDT) Anatomical Region Laterality Modality X-Ray Angiograph y Narrative 03/03/2025 10:29 AM CDT CARDIAC CATHETERIZATION REPORT Julieta Griffiths IP ENCOUNTER: @CSN@ Date of Procedure: 03/03/2025 BIRTHDATE: 1955 NURSERYMAN ASSISTANT: Contreras Serrano MD PREPROCEDURE DIAGNOSES: past history of hypertension, shortness of breath since she had COVID November 2021, palpitations, family history of ruptured thoracic aneurysm. Was evaluated in the office for exertional chest pain and therefore the catheterization is done. PROCEDURES PERFORMED: Moderate sedation that started at 9:39 a.m. and ended at 10:10 a.m. with total duration 31 minutes using 2mg of Versed and 50mcg of fentanyl. The registered nurse was sunil mccartney. Selective left and right coronary angiogram. Left heart catheterization with measurement of LVEDP and measure gradient across aortic valve. Right common femoral arterial angiogram. Deployment five Burkinan Vascade closure device. FINDINGS: Left main if you have disease. Proximal LAD has 20-30% otherwise no CAD. Left circumflex artery no CAD. Right coronary artery is large and dominant with no CAD. LVEDP 20 mm Hg and no gradient across aortic valve. Opening pressure 164/82 on closing pressure 188/77. Right common femoral arterial angiogram shows no significant disease in the right common femoral artery. COMPLICATIONS: None ESTIMATED BLOOD LOSS: 10 mL PROCEDURAL DESCRIPTION: After informed consent patient was brought into the cath lab tech where she was draped and prepped in the usual manner. Moderate sedation was given and the right groin infiltrated using 1% lidocaine. Five Burkinan sheath was obtained using micropuncture needle and modified Seldinger technique. Selective left coronary angiogram was done using JL4 catheter with the tip of the catheter placed in the left main coronary artery. Selective right coronary angiogram was done using JR4 catheter with the tip of the catheter placed in the right coronary artery. After that 5 Burkinan pigtail catheter was advanced across aortic valve into the left ventricular with measurement of LVEDP and measure gradient across aortic valve. Right common femoral arterial angiogram was done and deployed 6 Burkinan Angio-Seal. Access site: Right common femoral artery Hemostasis: five Burkinan Vascade closure device. CONCLUSIONS 20-30% proximal LAD otherwise no CAD. PLAN Continue risk factor modification for CAD. us Contreras Serrano MD CV CARDIAC CATH PROC EDURES Final Result * CBC without differential (03/03/2025 8:55 AM CDT) WBC 5.97 3.80 - 9.90 K/cumm Hgb 11.9 11.9 - 15.5 g/dL [facility] Hct 36.1 35.6 - 45.5 % [facility] Plt 198 150 - 400 K/cumm [facility] MPV 10.0 9.1 - 12.3 fL [facility] RBC 4.05 3.90 - 5.20 M/cumm [facility] MCV 89.1 81.3 - 96.4 fL [facility] MCH 29.4 27.1 - 33.3 pg [facility] MCHC 33.0 32.3 - 35.7 g/dL [facility] RDW CV 13.3 11.1 - 14.9 % [facility] RDW SD 43.8 35.7 - 48.1 fL [facility] NRBC abs 0.00 0.00 - 0.01 K/cumm [facility] Blood 03/03/2025 8:55 AM CDT 03/03/2025 8:57 AM CDT Contreras Serrano MD LAB BLOOD ORDERABLES Final Result Performing Organization Address [facility]/ZIP Co de Phone Number SYLVIA MALIK [address] [place] [address] * eGFR (03/03/2025 8:54 AM CDT) eGFR 69 >=60 mL/min/1. 73 m2 Comment: Interpretive Data Reference Interval Normal >/= 90 mL/min/1.73m2 Mildly decreased* 60 - 89 mL/min/1.73m2 Mildly to moderately decreased 45 - 59 mL/min/1.73m2 Moderately to severely decreased 30 - 44 mL/min/1.73m2 Severely decreased 15 - 29 mL/min/1.73m2 Kidney Failure < 15 mL/min/1.73m2 *Relative to young adult level Estimated glomerular filtration rate is determined by the 2020 CKD-EPI equation recommended by the National Kidney Foundation (A Unifying Approach to GFR Estimation: Recommendations of the NKF-ASK Task Force on Reassessing the Inclusion of Race in Diagnosing Kidney Disease, JASN 2020). The CKD-EPI equation should not be used for patients with unstable renal function and has not been validated in children and those over 70. Current interpretive data was last reviewed 2021. Blood 03/03/2025 8:54 AM CDT 03/03/2025 8:58 AM CDT Contreras Serrano MD LAB BLOOD ORDERABLES Final Result Performing Organization Address City/[facility]/ZIP Co de Phone Number SYLVIA MALIK [address] [place] [place] [address] * Comprehensive metabolic panel (03/03/2025 8:54 AM CDT) Sodium 142 135 - 145 mmol/L Potassium, pl 4.1 3.3 - 4.9 mmol/L [facility] Chloride 108 97 - 110 mmol/L [facility] CO2 24 22 - 32 mmol/L [facility] Anion gap 10 2 - 15 mmol/L [facility] BUN 19 6 - 25 mg/dL [facility] Creatinine 0.91 0.60 - 1.10 mg/dL [facility] Glucose 101 70 - 199 mg/dL [facility] Comment: Interpretive Data Fasting glucose >/= 126 mg/dl is diagnostic for diabetes. Fasting is defined as no caloric intake for at least 8 hours. Fasting glucose between 100 mg/dl to 125 mg/dl is diagnostic of prediabetes. In a patient with classic symptoms of hyperglycemia or hyperglycemic crisis, a random glucose >/= 200 mg/dl is diagnostic for diabetes. In the absence of unequivocal hyperglycemia, results should be confirmed by repeat testing. The classification and Diagnosis of Diabetes Diabetes Care 202; 46: S19-S40. Current interpretive data was last revised 2022. Calcium 9.1 8.5 - 10.3 mg/dL [facility] Bilirubin, total 0.5 0.1 - 1.2 mg/dL [facility] Protein, pl 6.7 6.5 - 8.5 g/dL [facility] Albumin 4.2 3.5 - 5.0 g/dL [facility] Alk phos 95 40 - 130 Units/L [facility] ALT 18 7 - 45 Units/L [facility] AST 26 10 - 45 Units/L [facility] Blood 03/03/2025 8:54 AM CDT 03/03/2025 8:58 AM CDT us Contreras Serrano MD LAB BLOOD ORDERABLES Final Result SYLVIA [address] [facility] [place] [address] * POCT lipid panel (02/13/2025 8:44 AM CDT) Cholesterol, POC 129 mg/dL HDL, POC 54 mg/dL Triglycerides, POC 132 mg/dL LDL Cholesterol POC 49 mg/dL Chol/HDL Ratio, POC 2.4 Non-HDL Cholesterol, POC 75 mg/dL Cholesterol Total, POC 129 mg/dL Capillary blood 02/13/2025 8 :44 AM CDT us Contreras Serrano MD POINT OF CARE TEST O RDERABLES Final Result from Last 3 Months Insurance [employer] MEDICARE Wealth Access FOR LIFE Advance Directives For more information, please contact: [phone] * Full Code (Latest Code Status on File) Date Activated Date Inactivated Comments 03/03/2025 12:43 PM 03/03/2025 6:01 PM Care Teams Lens Molding Equipment Operator Relationship Specialty Start Date End Date Valente Dockery MD [address] [facility] [address] [place] [address] PCP - General Family Medicine 12/07/17
--- OUTSIDE RECORDS SUMMARY | 2025-03-24 13:46 | XMS_ITS | Encounter Summary ---
Author Organization 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
--- OUTSIDE RECORDS SUMMARY | 2025-03-24 13:46 | XMS_ITS | Clinical Summary ---
Author Organization [facility] [address] Address [address] [place] [address] Care Team Providers Care Turf Manager Name Role Phone Valente Dockery MD Primary [...] by mouth every 4 hours 0 Active [id number]-[id number] acid-biotin 66.7-1,000 mcg tablet Take 1 tablet [...] 01/21/2018 Assessment & Plan (01/21/2018 1:12 PM MANAGER DIESEL): Low TSH DD: Hyperthyroidism ( overt vs [...] 12/28 Assessment & Plan (01/21/2018 1:12 PM MANAGER DIESEL): Obesity is worsening. Discussed the patient's BMI. [...] Date Nonrheumatic tricuspid valve regurgitation 05/18/2023 02/13/2025 Encounters Date Type Department Care Team Description 03/03/2025 10:00 AM CDT - 03/03/2025 11:30 AM CDT Surgery [facility] [address] [place] [address] Contreras Serrano MD LEFT HEART CATHETERIZATION WITH CORONARY ANGIOGRAPHY AND WITH OR WITHOUT LEFT VENTRICULOGRAM [id number] 03/03/2025 8:10 AM CDT - 03/03/2025 1:04 PM CDT Hospital Encounter [facility] [address] [place] [address] Contreras Serrano MD Angina pectoris, unstable (HCC) Discharge Disposition: Discharge to home or self care 02/13/2025 8:30 AM CDT Office Visit [facility] Cardiology [address] [place] [phone] Contreras Serrano MD Mixed hyperlipidemia (Primary Dx); PSVT (paroxysmal supraventricular tachycardia); Primary hypertension; Family history of premature CAD; Family history of aortic aneurysm; CORDOBA (dyspnea on exertion); Exertional chest pain 02/13/2025 Telephone [facility] Cardiology [address] [place] [phone] Contreras Serrano MD from Last 3 Months Surgical History Surgery Date Site/Laterality Comments KNEE SURGERY Left TOTAL HIP ARTHROPLASTY Left CERVICAL FUSION LUMBAR FUSION CATARACT EXTRACTION Bilateral CARDIAC CATHETERIZATION 03/03/2025 N/A Procedure: LEFT HEART CATHETERIZATION WITH CORONARY ANGIOGRAPHY AND WITH OR WITHOUT LEFT VENTRICULOGRAM [id number]; Surgeon: Contreras Serrano MD; Location: CARDIAC POOL NURSE; Service: Cardiovascular; Laterality: N/A; Medical devices from this surgery are in the Medical Devices section. Medical History Medical History Date Comments Headache Hypertension Hyperlipidemia History of hip surgery left Status post cervical spinal fusion Depression Angina pectoris, unstable (HCC) GERD (gastroesophageal reflux disease) Urinary tract infection Family History Medical History Relation Name Comments [...] on file Legal Sex Female 8:22 AM MANAGER DIESEL Gender Identity Not on file Sexual Orientation [...] 03/03/2025 8:59 AM CDT Plan of Treatment Health Maintenance Due Date Last Done Comments Breast Cancer Screening-Mammogram 1955 Colon Cancer Screening-Colonoscopy 1955 Hepatitis C Screening 1955 Osteoporosis Screening-Bone Density Scan 1956 DTaP/Tdap/Td Vaccine (1 - Tdap) 1967 Hepatitis B Screening 1974 Pneumococcal vaccine 65+ (1 of 1 - PCV) 2006 Zoster Vaccine (2 of 3) 10/26/2017 08/31/2017 Depression Screening 01/21/2019 01/21/2018 Well Visit 65+ 2021 Covid-19 Vaccine (4 - 2023-2 5 season) 2024 10/04/2021, 02/28/2021, 02/04/2021 Influenza Vaccine (Season Ended) 2025 08/30/2022, 10/04/2021, 09/17/2020, Additional history exists Fall Risk Assessment 03/03/2026 03/03/2025 Medical Devices Implanted Type Area Internist Medical Doctor Md Device Identifier Shelf Expiration Date Model / Serial / Lot [facility] [employer] [facility] Device Closure Vascade Od5 Fr Femoral Artery [id number] - [id number] Implanted:Qty: 1 on 03/03/2025 by Contreras Serrano MD at [facility] [employer] [facility] 06/23/2026 [id number] / / [id number] Procedures Procedure Name Priority Date/Time Associated Diagnosis Comments LEFT HEART CATHETERIZATION WITH CORONARY ANGIOGRAPHY AND WITH AND WITHOUT LEFT VENTRICULOGRAM Routine 03/03/2025 10:10 AM CDT Angina pectoris, unstable (HCC) MODERATE SEDATION SAME MD PERSAUD ADDL 15 MIN [id number] 03/03/2025 9:23 AM CDT Angina pectoris, unstable (HCC) MODERATE SEDATION FIRST 15MIN 5+ YEAR 12635 03/03/2025 9:23 AM CDT Angina pectoris, unstable [...] @CSN@ Date of Procedure: 03/03/2025 BIRTHDATE: 1955 NUCLEAR WASTE PROCESS OPERATOR: Contreras Serrano MD PREPROCEDURE DIAGNOSES: past history [...] Right common femoral arterial angiogram. Deployment five [place]uran Vascade closure device. FINDINGS: Left main if [...] informed consent patient was brought into the tanbark laborer where she was draped and prepped in the usual manner. Moderate sedation was given and the right groin infiltrated using 1% lidocaine. Five Honduran sheath was obtained using micropuncture needle and modified Seldinger technique. Selective left coronary angiogram was done using JL4 catheter with the tip of the catheter placed in the left main coronary artery. Selective right coronary angiogram was done using JR4 catheter with the tip of the catheter placed in the right coronary artery. After that 5 Honduran pigtail catheter was advanced across aortic valve into the left ventricular with measurement of LVEDP and measure gradient across aortic valve. Right common femoral arterial angiogram was done and deployed 6 Honduran Angio-Seal. Access site: Right common femoral artery Hemostasis: five [place]uran Vascade closure device. CONCLUSIONS 20-30% proximal LAD otherwise no CAD. PLAN Continue risk factor modification for CAD. Contreras Serrano MD CV CARDIAC CATH PROC EDURES Final Result * CBC without differential (03/03/2025 8:55 AM CDT) [facility] WBC 5.97 3.80 - 9.90 K/cumm Hgb 11.9 11.9 - 15.5 g/dL [facility] Hct 36.1 35.6 - 45.5 % [facility] Plt 198 150 - 400 K/cumm [facility] MPV 10.0 9.1 - 12.3 fL [facility] RBC 4.05 3.90 - 5.20 M/cumm [facility] MCV 89.1 81.3 - 96.4 fL [facility] MCH 29.4 27.1 - 33.3 pg [facility] MCHC 33.0 32.3 - 35.7 g/dL [facility] RDW CV 13.3 11.1 - 14.9 % [facility] RDW SD 43.8 35.7 - 48.1 fL [facility] NRBC abs 0.00 0.00 - 0.01 K/cumm [facility] Blood 03/03/2025 8:55 AM CDT 03/03/2025 8:57 AM CDT Contreras Serrano MD LAB BLOOD ORDERABLES Final Result [facility] [address] [address] [facility] [place] [address] * eGFR (03/03/2025 8:54 AM CDT) eGFR [...] Serrano MD LAB BLOOD ORDERABLES Final Result [facility] [address] [address] [facility] [place] [address] * Comprehensive metabolic panel (03/03/2025 8:54 AM CDT) Pathologist [facility] Sodium 142 135 - 145 mmol/L Potassium, pl 4.1 3.3 - 4.9 mmol/L [facility] Chloride 108 97 - 110 mmol/L [facility] CO2 24 22 - 32 mmol/L [facility] Anion gap 10 2 - 15 mmol/L [facility] BUN 19 6 - 25 mg/dL [facility] Creatinine 0.91 0.60 - 1.10 mg/dL [facility] Glucose 101 70 - 199 mg/dL [facility] Comment: Interpretive Data Fasting glucose >/= 126 [...] classification and Diagnosis of Diabetes Diabetes Care 2021; 46: S19-S40. Current interpretive data was last [...] MD LAB BLOOD ORDERABLES Final Result [facility] [address] [facility] [address] [facility] [place] [id number] * POCT lipid panel (02/13/2025 8:44 AM CDT) Cholesterol, POC 129 mg/dL HDL, POC 54 mg/dL Triglycerides, POC 132 mg/dL LDL Cholesterol POC 49 mg/dL Chol/HDL Ratio, POC 2.4 Non-HDL Cholesterol, POC 75 mg/dL Cholesterol Total, POC 129 mg/dL Capillary blood 02/13/2025 8 :44 AM CDT Contreras Serrano MD POINT OF CARE TEST O RDERABLES Final Result from Last 3 Months Insurance MEDICARE [facility] Address: [address] [place] [phone] FOR LIFE MEDICARE FOR LIFE Advance Directives For more information, please contact: [phone] * Full Code (Latest Code Status on File) Date Activated Date Inactivated Comments 03/03/2025 12:43 PM 03/03/2025 6:01 PM Care Teams Turf Manager Relationship Specialty Start Date End Date Valente Dockery MD [address] [facility] [[email or web address] [address] [place] [address] PCP - General Family Medicine 12/07/17
--- OUTSIDE RECORDS SUMMARY | 2025-03-24 13:46 | XMS_ITS ---
Author Organization [facility] Address [address] [facility] [address] [place] [address] Care Team Providers Care Broth Setter Name Role Phone Valente oDckery Primary Care Provider Jose J Martinez Unavailable [phone] Valdo Walker Unavailable Unavailable REASON FOR VISIT cervical Encounters Encounter Location Date Provider Diagnosis [facility] [address] [facility] [address] [place] [address] 07/30/2024 Jose J Steel PLAN OF TREATMENT No Information
--- OUTSIDE RECORDS SUMMARY | 2025-03-24 13:46 | XMS_ITS ---
Author Organization [facility] Address [address] [facility] [address] [place] [address] Care Team Providers Care Qa Internship Name Role Phone Valente Dockery Primary Care Provider Jose J Martinez Unavailable [phone] Valdo Walker Unavailable Unavailable Encounters Encounter Location Date Provider Diagnosis [facility] [address] [facility] [address] [place] [address] 11/08/2023 Jose J Steel PLAN OF TREATMENT No Information
--- OUTSIDE RECORDS SUMMARY | 2025-03-24 13:46 | XMS_ITS | Clinical Summary ---
Author Organization [facility] Address [address] [place] [address] Care Team Providers Care Coach Name Role Phone Panfilo Dockery MD Primary Care Provider [phone] Social History Tobacco Use Types Packs/Day Years [...] 1 - Tdap) 1975 Mammogram Screening 1996 Pneumococcal Vaccine: 50+ Ye ars (1 of 1 - PCV) 2006 Zoster Vaccines (1 of 2) 2006 Dexa Scan (General) 2021 COVID-19 Vaccine (1 - 2023-2 5 season) 2024 RSV Immunization or 60+ Years (1 [...] age to complete this topic Care Teams Coach Relationship Specialty Start Date End Date Panfilo Dockery MD [address] [place] [address] PCP - General 03/14/12
--- OUTSIDE RECORDS SUMMARY | 2025-03-24 13:46 | XMS_ITS | Patient Health Record ---
Author Organization [facility] Address [address] [place] [address] Care Team Providers Care Order Desk Clerk Name Role Phone DockeryValente holly Primary Care Provider Jose J Martinez Unavailable [phone] Valdo Walker Unavailable Unavailable ALLERGIES Allergen (clinical [...] Problem Spondylolisthesis (M43.10) Active confirmed Spondylolisthes is (772347494) Problem Lumbar herniated disc (M51.26) Active confirmed Displacement o f lumbar intervertebral disc without myelopathy (32795530) Problem Degenerative spondylolisthesis (M43.10) Active confirmed 3674011 Problem Herniated intervertebral disc of lumbar spine (M51.26) Active confirmed Displacement of lumbar intervertebral disc without myelopathy (45931015) Problem DDD (degenerative disc disease), cervical (M50.30) Active confirmed Cervical d isc disorder (267477217) Problem Other cervical disc degeneration at C6-C7 level (M50.323) Active confirmed Degeneration of cervical intervertebral disc (56913845) Problem Facet arthropathy, 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) Active confirmed Arthropat hy of cervical spine facet joint (disorder) (732940107) Problem Degenerative disc disease, cervical (M50.30) Active confirmed Degeneration of cervical intervertebral disc (05143448) Problem HNP (herniated nucleus pulposus), cervical (M50.20) Active confirmed Displaceme nt of cervical intervertebral disc without myelopathy (79866010) Problem Herniation of intervertebral disc at C6-C7 level (M50.223) Active confirmed Displacement of cervical intervertebral disc without myelopathy (19080872) Encounters Encounter Location Date Provider Diagnosis [facility] [address] [address] 07/16/2024 Jose J Steel [facility] [address] [address] 07/30/2024 Jose J Steel PLAN OF TREATMENT Pending Test Test Name Order Date CBC With Differential/Platelet 3 CBC With Differential/Platelet 0 CBC With Differential/Platelet 8 PT AND PTT 11/07/2018 PT AND PTT 07/04/2023 PT AND PTT 10/14/2020 Chem-Comprehensive 11/07/2018 Chem-Comprehensive 07/04/2023 Chem-Comprehensive 10/14/2020 Insurance Providers Payer Name Payer Address Payer Phone Subscriber Number Group Number Insured Name Patient Relationship to Insured Coverage Start Date Coverage End Date Medicare [place] [address] [address] [place] [address] [id number] Brittnee Ty Self - patient is the insured [employer] [address] [place] [address] [id number] Barry Self - patient is the insured [...]
--- OUTSIDE RECORDS SUMMARY | 2025-03-24 13:46 | XMS_ITS ---
Author Organization [facility] Address [address] [facility] [address] [place] [address] Care Team Providers Care Dredge Master Name Role Phone Valente Dockery Primary Care Provider Jose J Martinez Unavailable [phone] Valdo Walker Unavailable Unavailable REASON FOR VISIT cervical Encounters Encounter Location Date Provider Diagnosis [facility] [address] [facility] [address] [place] [address] 07/16/2024 Jose J Steel PLAN OF TREATMENT No Information
--- OUTSIDE RECORDS SUMMARY | 2025-03-24 13:46 | XMS_ITS | Encounter Summary ---
Author Organization [facility] Care Team Providers Care Prior Authorization Technician Name Role Phone No, Physician Primary Care Provider [phone] Valente Dockery MD Primary Care Provider Encounter Details Date Type Department Care Team (Latest Contact Info) Description 02/21/2017 Orders Only [facility] ProviderAlonso MD [address] [place] [address] Social History Tobacco Use Types Packs/Day Years Used Date Smoking Tobacco: Never Assessed Comments Unknown Sex and Gender Information Value Date Recorded Sex Assigned at Not on file Legal Sex Female 8:22 AM FINISHER HAND Gender Identity Not on file Sexual Orientation [...] on filedocumented in this encounter Care Teams Prior Authorization Technician Relationship Specialty Start Date End Date No, Physician PCP - General 11/28/17 12/06/17 Valente Dockery MD [address] [address] PCP - General Family Medicine 12/07/17 documented as of this encounter
--- OUTSIDE RECORDS SUMMARY | 2025-03-24 13:47 | XMS_ITS | Clinical Summary ---
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 Gender Identity Not on file Sexual Orientation Not on file Plan of Treatment Health Maintenance Due Date Last Done Comments Hepatitis C Virus (HCV) Screening 1955 TdaP Immunization 1955 Colonoscopy 2001 Colorectal Cancer Screening 2001 Cologuard 2006 Immunochemical Fecal Occult Blood 2006 Pneumococcal Immunization (5 0+ years) (1 of 1 - PCV) 2006 Zoster Immunization (1 of 2) 2006 Influenza Immunization (#1) 2024 SARS-COV-2 Immunization ( season) 2024 Respiratory Syncytial Virus (RSV) Immunization [...] age to complete this topic Insurance MEDICARE [employer] Care Teams Export Specialist Relationship Specialty Start Date End Date Valente Dockery MD [address] [place] [address] PCP - General Family Medicine 11/01/17
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
== END 2025-03-24 12:45 | disposition home or self-care (01) ==
PROVIDERS: PCP Family Medicine; Visit Provider Physician Assistant
DX: M79.89 Other specified soft tissue disorders (principal)
CPT/HCPCS: 76536

== ENCOUNTER 2025-04-14 10:45 | Outpatient (CLI) | payer MEDICARE, OTHER, SELFPAY ==
--- OUTSIDE RECORDS SUMMARY | 2025-04-14 11:05 | XMS_ITS ---
Author Organization [facility] Address [address] [facility] [address] [place] [address] Care Team Providers Care Nuclear Weapons Custodian Name Role Phone Valente Dockery Primary Care Provider Jose J Martinez Unavailable [phone] Valdo Walker Unavailable Unavailable REASON FOR VISIT cervical Encounters Encounter Location Date Provider Diagnosis [facility] [address] [facility] [address] [place] [address] 07/30/2024 Jose J Steel PLAN OF TREATMENT No Information
--- OUTSIDE RECORDS SUMMARY | 2025-04-14 11:05 | XMS_ITS | Encounter Summary ---
Author Organization [facility] Address [address] 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
--- OUTSIDE RECORDS SUMMARY | 2025-04-14 11:05 | XMS_ITS | Clinical Summary ---
Author Organization [facility] Address [address] [place] [address] Care Team Providers Care Energy Conservation Director Name Role Phone Unavailable Primary Care Provider Unavailabl e Source Comments [facility],non-owned Affiliates and Associated Physician Practices is amultiple site organization consisting of ambulatory clinics and hospital sitesin [place], [place], [place]. This disclosure is being madepursuant to the Care Everywhere program and may not contain all information available regarding this patient. 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 Gender Identity Not on file Sexual Orientation Not on file Occupation Industry Job Start Date Job End Date [employer] Not on file Not on file Not on file Last Filed Vital Signs Vital Sign Reading Time Taken Comments Blood Pressure 132/83 12/30/2009 6:05 AM INSULATION EXTRUDER OPERATOR Pulse 77 12/30/2009 6:05 AM INSULATION EXTRUDER OPERATOR Temperature 36.3 C (97.4 F) 12/30/2009 6:05 AM INSULATION EXTRUDER OPERATOR Respiratory Rate 16 12/30/2009 6:05 AM INSULATION EXTRUDER OPERATOR Oxygen Saturation 95% 12/30/2009 6:05 AM INSULATION EXTRUDER OPERATOR Inhaled Oxygen Concentration - - Weight 100.5 kg (221 lb 9 oz) 12/30/2009 6:05 AM INSULATION EXTRUDER OPERATOR Height 154.9 cm (5' 1 ) 12/30/2009 6:05 AM INSULATION EXTRUDER OPERATOR Body Mass Index 41.86 12/30/2009 6:05 AM INSULATION EXTRUDER OPERATOR Plan of Treatment Health Maintenance Due [...]
--- OUTSIDE RECORDS SUMMARY | 2025-04-14 11:05 | XMS_ITS | Patient Health Record ---
Author Organization [facility], Address [address] [place] [address] Care Team Providers Care Certified Veterinary Technician Name Role Phone DockeryValente holly Primary Care Provider Jose J Martinez Unavailable [phone] Valdo Walker Unavailable Unavailable ALLERGIES Allergen (clinical [...] Problem Spondylolisthesis (M43.10) Active confirmed Spondylolisthes is (791323912) Problem Lumbar herniated disc (M51.26) Active confirmed Displacement o f lumbar intervertebral disc without myelopathy (52921863) Problem Degenerative spondylolisthesis (M43.10) Active confirmed 0044874 Problem Herniated intervertebral disc of lumbar spine (M51.26) Active confirmed Displacement of lumbar intervertebral disc without myelopathy (11474274) Problem DDD (degenerative disc disease), cervical (M50.30) Active confirmed Cervical d isc disorder (984030314) Problem Other cervical disc degeneration at C6-C7 level (M50.323) Active confirmed Degeneration of cervical intervertebral disc (94356497) Problem Facet arthropathy, 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) Active confirmed Arthropat hy of cervical spine facet joint (disorder) (549205335) Problem Degenerative disc disease, cervical (M50.30) Active confirmed Degeneration of cervical intervertebral disc (23582326) Problem HNP (herniated nucleus pulposus), cervical (M50.20) Active confirmed Displaceme nt of cervical intervertebral disc without myelopathy (32609307) Problem Herniation of intervertebral disc at C6-C7 level (M50.223) Active confirmed Displacement of cervical intervertebral disc without myelopathy (22876864) Encounters Encounter Location Date Provider Diagnosis [facility] [address] [address] 07/16/2024 Jose J Steel [facility], [address] [address] 07/30/2024 Jose J Steel PLAN OF TREATMENT Pending Test Test Name Order Date CBC With Differential/Platelet 8 CBC With Differential/Platelet 3 CBC With Differential/Platelet 0 PT AND PTT 10/14/2020 PT AND PTT 11/07/2018 PT AND PTT 07/04/2023 Chem-Comprehensive 10/14/2020 Chem-Comprehensive 11/07/2018 Chem-Comprehensive 07/04/2023 Insurance Providers Payer Name Payer Address Payer Phone Subscriber Number Group Number Insured Name Patient Relationship to Insured Coverage Start Date Coverage End Date Medicare [place] [address] [address] [place] [address] [id number] Brittnee Ty Self - patient is the insured [employer] [address] [place] [address] [phone] [id number] Barry Self - patient is the insured [...]
--- OUTSIDE RECORDS SUMMARY | 2025-04-14 11:05 | XMS_ITS | Patient Health Record ---
Author Organization [facility] [employer] [employer] Address [address] [facility] [address] [place] [address] Care Team Providers Care Cloth Dye Range Operator Name Role Phone Valente Dockery MD Primary Care Provider Unavaila Apolinar Mathur Unavailable [phone] Kasey Montalvo Unavailable [phone] Allergies Allergen (clinical drug ingredient) Drug/Non Drug Allergy documented on EMR Reaction Allergy Type Onset Date Status Substance with penicillin structure and antibacterial mechanism of action (substance) Penicillins Unknown Drug Allergy 02/15/2024 Active Reason For Referral No Information Medications Medication SIG (Take, Route, Frequency, Duration) Notes Start Date End Date Status Citalopram Hydrobromide 40 MG TAKE 1 TAB LET BY MOUTH DAILY for 90 days Active DULoxetine HCl 60 MG TAKE 1 CAPSULE BY MOUTH DAILY for 90 Active ALPRAZolam ER 2 MG Oral for 90 Days Active traZODone HCl 100 MG TAKE 1 TABLET BY MOUTH DAILY Oral for 90 Days Active Lisinopril 10 MG Oral for 90 Days Active Gabapentin 300 MG TAKE 1 CAPSULE BY MOUTH TWICE DAILY Oral for 90 Days Active Atorvastatin Calcium 20 MG Oral for 90 Days Active DULoxetine HCl 60 MG 1 capsule Oral Once a day for 90 days Active hydroCHLOROthiazide 12.5 MG Oral for 90 Days Active Citalopram Hydrobromide 40 MG 1 tablet O ral Once a day for 90 days Active oxyCODONE-Acetaminophen 5-32 5 MG Oral for 7 Days Active Clobetasol Propionate 0.05 % External for 20 Days Active Linzess 72 MCG Oral for 30 Days Active Immunizations Vaccine Route Administration Date [...] 2nd dose Unknown 12/03/2022 Ad ministered Novel [id number], preservative free Unknown 09/13/2016 Administered Novel Dgjkmtmcq-L1Y6-19, preservative free Unknown 09/21/2018 Administered Novel [id number]-D6I5-53, preservative free Unknown 09/17/2020 Administered Pfizer Biontech [...] Severe recurrent major depression without psychotic features (70156794) Major depressive disorder, recurrent severe without psychotic features (F33.2) Active confirmed Problem 57100941 Generalized anxiety disorder (F41.1) Active confirmed Problem Posttraumatic stress disorder (10311670) Post-traumatic stress disorder, chronic (F43.12) Active confirmed Problem 946234986 Chronic posttraumatic stress disorder (F43.12) Active confirmed Problem 75943326 MDD (major depressive disorder), recurrent severe, without psychosis (F33.2) Active confirmed Problem Memory impairment (109271079) Memory impairment (R41.3) Active confirmed Problem Hypertension (84258061) Hypertension (I10) 013 Active confirmed Problem Paroxysmal supraventricular tachycardia (disorder) (49359832) PSVT (paroxysmal supraventricular tachycardia) (I47.10) 023 Active [...] N/A Encounters Encounter Location Date Provider Diagnosis [facility] [employer] [address] 06/23/2024 Kasey Montalvo [address] [address] 06/27/2024 Kasey Montalvo [address] [address] 04/14/2025 Apolinar Nichole [facility] [address] [address] 05/09/2024 Kasey Montalvo MDD (major depressiv e disorder), recurrent severe, without psychosis F33.2 ; Chronic posttraumatic stress disorder F43.12 and Generalized anxiety disorder F41.1 [facility] [place] [address] [facility] [address] [address] 05/22/2024 Apolinar Dionisio Generalized anxiety disorder F41.1 ; Major depressive disorder, recurrent severe without psychotic features F33.2 and Post-traumatic stress disorder, chronic F43.12 [facility] [address] [address] 06/20/2024 Apolinar Dionisio Generalized anxiety disorder F41.1 ; Major depressive disorder, recurrent severe without psychotic features F33.2 and Post-traumatic stress disorder, chronic F43.12 [facility] [place] [address] [address] 07/18/2024 Apolinar Dionisio Generalized anxiety disorder F41.1 ; Major depressive disorder, recurrent severe without psychotic features F33.2 and Post-traumatic stress disorder, chronic F43.12 [facility], [facility] [address] [facility] [address] [place] [address] 09/11/2024 Kasey Selvin MDD (major depressiv e disorder), recurrent severe, without psychosis F33.2 ; Generalized anxiety disorder F41.1 and Chronic posttraumatic stress disorder F43.12 [facility], [facility] [address] [facility] [address] [place] [address] 09/24/2024 Apolinar Dionisio Generalized anxiety disorder F41.1 ; Major depressive disorder, recurrent severe without psychotic features F33.2 and Post-traumatic stress disorder, chronic F43.12 [facility], [place] [address] [facility] [address] [place] [address] 09/25/2024 Kasey Selvin MDD (major depressiv e disorder), recurrent severe, without psychosis F33.2 ; Generalized anxiety disorder F41.1 and Chronic posttraumatic stress disorder F43.12 [facility], [place] [address] [facility] [address] [place] [address] 11/10/2024 Apolinar Dionisio Generalized anxiety disorder F41.1 ; Major depressive disorder, recurrent severe without psychotic features F33.2 and Post-traumatic stress disorder, chronic F43.12 [facility], [place] [address] [address] 02/02/2025 Apolinar Dionisio [facility], [place] [address] [address] 02/04/2025 Apolinar Dionisio Encounter for screen ing for depression Z13.31 ; Encounter for screening for cardiovascular disorders Z13.6 ; Generalized anxiety disorder F41.1 ; Major depressive disorder, recurrent severe without psychotic features F33.2 ; Post-traumatic stress disorder, chronic F43.12 and Memory impairment R41.3 [facility], [place] [address] [facility] [address] [place] [address] 09/15/2024 Apolinar Dionisio [facility], [place] [address] [facility] [address] [place] [address] 02/24/2025 Apolinar Nichole Major depressive disorder, recurrent severe without psychotic features F33.2 [facility] [employer] [address] [address] 06/03/2024 Apolinar Nichole Assessments Encounter Date Diagnosis [...] up with her primary care physician and garage manager for better diabetes management - Recommend Valarie to consult a neurologist for evaluation and management of her seizures - Suggest Valarie to apply for disability again and provide assistance in filling out the necessary forms [facility] - Plan: - Continue monitoring the granddaughter's head shape and consult a dobby loom weaver for further evaluation if necessary - Encourage Adrian to follow the dobby loom weaver's recommendations regarding helmet therapy [employer] and [...] up with her primary care physician and garage manager for better diabetes management - Recommend Valarie to consult a neurologist for evaluation and management of her seizures - Suggest Valarie to apply for disability again and provide assistance in filling out the necessary forms [employer] - Plan: - Continue monitoring the granddaughter's head shape and consult a dobby loom weaver for further evaluation if necessary - Encourage Prashant and Valarie to follow the dobby loom weaver's recommendations regarding helmet therapy [employer] and [...] anxiety due to caregiving responsibilities for her 33-vueds-vzg great-grandariadna chambers and concerns about her granddaughter, [...] discussing potential respite care options with the [facility] beverage distiller to alleviate some caregiving burden. [facility] [employer] and [facility] Involvement - Assessment: The patient expresses concerns about the inconsistency of the [facility] beverage distiller and the potential negative influence of Christi's mother. 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 The patient's grandson, Prashant, lives with her, causing additional stress. - Plan: Encourage the patient to communicate with the [facility] beverage distiller regarding their concerns and to advocate for [...] recently hospitalized for nearly three weeks in [place]. - Plan: Encourage the patient to provide support and guidance to her granddaughter in seeking appropriate mental health care, including following up with her counselor at [facility] and maintaining regular appointments with her psychiatrist. [...] that the granddaughter follow up with her garage manager regularly and establish a comprehensive care plan [...] medication and any concerns he may have. Valarei's Type 1 Diabetes and Pseudo Seizures - Plan: - Encourage the patient to discuss the importance of diabetes management with Valarie and the potential risks of poor blood sugar control. - Recommend that Valarie consult with her primary care provider or garage manager to address her diabetes management and pseudo [...] patient is under regular care of a heat treat technician. Patient bought a wig to cope with [...] Patient is under the care of a extension forester, Dr. Irwin, for dermatitis on hands. Patient reports collagen and biotin supplements may have helped with dermatitis symptoms. - Plan: Continue following up with extension forester and adhere to prescribed treatment. Depression and [...] severe without psychotic features (ICD-10 - F33.2) 05/09/2024 Generalized anxiety disorder (ICD-10 - F41.1) [...] patient is under regular care of a heat treat technician. Patient bought a wig to cope with [...] Patient is under the care of a extension forester, Dr. Irwin, for dermatitis on hands. Patient reports collagen and biotin supplements may have helped with dermatitis symptoms. - Plan: Continue following up with extension forester and adhere to prescribed treatment. Depression and [...] recently hospitalized for nearly three weeks in [place]. - Plan: Encourage the patient to provide support and guidance to her granddaughter in seeking appropriate mental health care, including following up with her counselor at [facility] and maintaining regular appointments with her psychiatrist. [...] that the granddaughter follow up with her garage manager regularly and establish a comprehensive care plan [...] poor blood sugar control. - Recommend that Valraie consult with her primary care provider or garage manager to address her diabetes management and pseudo [...] up with her primary care physician and garage manager for better diabetes management - Recommend Valarie to consult a neurologist for evaluation and management of her seizures - Suggest Valarie to apply for disability again and provide assistance in filling out the necessary forms [employer] - Plan: - Continue monitoring the granddaughter's head shape and consult a dobby loom weaver for further evaluation if necessary - Encourage Adrian to follow the dobby loom weaver's recommendations regarding helmet therapy [employer] and [...] anxiety due to caregiving responsibilities for her 64-wgleh-kdg great-granddamarlee r and concerns about her granddaughter, Christi, returning [...] discussing potential respite care options with the [facility] beverage distiller to alleviate some caregiving burden. [facility] [employer] and [facility] Involvement - Assessment: The patient expresses concerns about the inconsistency of the [facility] beverage distiller and the potential negative influence of Christi's mother. 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 The patient's grandson, Prashant, lives with her, causing additional stress. - Plan: Encourage the patient to communicate with the [facility] beverage distiller regarding their concerns and to advocate for [...] recently hospitalized for nearly three weeks in [place]. - Plan: Encourage the patient to provide support and guidance to her granddaughter in seeking appropriate mental health care, including following up with her counselor at [facility] and maintaining regular appointments with her psychiatrist. [...] that the granddaughter follow up with her garage manager regularly and establish a comprehensive care plan [...] anxiety due to caregiving responsibilities for her 07-qyfjo-qbp luda-amee chambers and concerns about her granddaughter, Christi, [...] discussing potential respite care options with the [facility] beverage distiller to alleviate some caregiving burden. [facility] [employer] and [facility] Involvement - Assessment: The patient expresses concerns about the inconsistency of the [facility] beverage distiller and the potential negative influence of Christi's mother. 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 The patient's grandson, Prashant, lives with her, causing additional stress. - Plan: Encourage the patient to communicate with the [facility] beverage distiller regarding their concerns and to advocate for [...] consult with her primary care provider or garage manager to address her diabetes management and pseudo [...] patient is under regular care of a heat treat technician. Patient bought a wig to cope with [...] Patient is under the care of a extension forester, Dr. Irwin, for dermatitis on hands. Patient reports collagen and biotin supplements may have helped with dermatitis symptoms. - Plan: Continue following up with extension forester and adhere to prescribed treatment. Depression and [...] Testing 02/04/2025 Next Appt Details Provider Name:Apolinar Harry Dionisio , 05/07/2025 10:00:00 AM, [address], [address], [place], [address], Insurance Providers Payer Name Payer Address Payer Phone Subscriber Number Group Number Insured Name Patient Relationship to Insured Coverage Start Date Coverage End Date [place] [address] [place] [phone] [id number] JULIETA GRIFFITHS Self - patient is the insured For Life - Medicare Supplement [address] [place] [address] [id number] TUNDE ELVIRA Spouse - patient is the spouse of the insured Medical (General) History Medical History History ICD Code Problems: Anxiety disorder Generalized anxiety disorder History of SARS-CoV-2 Insomnia Morbid obesity Posttraumatic stress disorder Recurrent major depression in full [place] Severe recurrent major depression withou t psychotic features , Surgical History Surgery Date(Month/Year) Any surgical history Removal of gallbladder (93200) 6
--- OUTSIDE RECORDS SUMMARY | 2025-04-14 11:05 | XMS_ITS | Clinical Summary ---
Author Organization [facility] Address [address] [place] [address] Care Team Providers Care Reproducer Name Role Phone Panfilo Dockery MD Primary Care Provider [phone] Social History Tobacco Use Types Packs/Day Years [...] age to complete this topic Care Teams Reproducer Relationship Specialty Start Date End Date Panfilo Dockery MD [address] [place] [address] PCP - General 03/14/12
--- OUTSIDE RECORDS SUMMARY | 2025-04-14 11:05 | XMS_ITS | Clinical Summary ---
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
--- OUTSIDE RECORDS SUMMARY | 2025-04-14 11:05 | XMS_ITS ---
Author Organization [facility] Address [address] [facility] [address] [place] [address] Care Team Providers Care Wind Science And Planning Name Role Phone Valente Dockery Primary Care Provider Jose J Martinez Unavailable [phone] Valdo Walker Unavailable Unavailable Encounters Encounter Location Date Provider Diagnosis [facility], [address] [facility] [address] [place] [address] 11/08/2023 Jose J Steel PLAN OF TREATMENT No Information
--- OUTSIDE RECORDS SUMMARY | 2025-04-14 11:05 | XMS_ITS ---
Author Organization [facility] Address [address] [facility] [address] [place] [address] Care Team Providers Care Woodworker Helper Name Role Phone Valente Dockery Primary Care Provider Jose J Martinez Unavailable [phone] Valdo Walker Unavailable Unavailable REASON FOR VISIT cervical Encounters Encounter Location Date Provider Diagnosis [facility], [address] [facility] [address] [place] [address] 07/16/2024 Jose J Steel PLAN OF TREATMENT No Information
[2025-04-14 11:33] LABS: Alanine Aminotransferase 21 U/L (6-35); Albumin Level 4.3 g/dL (3.5-5.1); Alkaline Phosphatase 77 U/L (38-126); Anion Gap 6 mmol/L (4-12); Aspartate Amino Transferase 32 U/L (14-36); Bilirubin,Total 0.7 mg/dL (0.2-1.3); Blood Urea Nitrogen 22 mg/dL (7-17); Calcium 9.1 mg/dL (8.4-10.2); Carbon Dioxide 28 mmol/L (22-30); Chloride 104 mmol/L (98-107); Estimated Glomerular Filt Rate 55; Glucose 104 mg/dL (65-110); Potassium 4.1 mmol/L (3.4-5.0); Sodium 138 mmol/L (137-145)
== END 2025-04-14 10:46 | disposition home or self-care (01) ==
LOC: ANHLAB 10:51
PROVIDERS: PCP Family Medicine; Visit Provider Physician Assistant Medical
DX: N18.30 Chronic kidney disease, stage 3 unspecified (principal); I12.9 Hypertensive chronic kidney disease with stage 1 through stage 4 chronic kidney disease, or unspecified chronic kidney disease; E53.8 Deficiency of other specified B group vitamins
CPT/HCPCS: 36415; 80053; 82607

== ENCOUNTER 2025-05-04 14:30 | Outpatient (CLI) | payer MEDICARE, OTHER, SELFPAY ==
--- NOTE | ~2025-05-04 | XR_ITS ---
XR wrist RT min 3V Ordering provider: Himanshu Oliva MD History: . M25.531 - Pain in right wrist . Comparison: None. FINDINGS: BONES: No acute fracture or dislocation. No definite scaphoid fracture. JOINT SPACES: Cystic changes in the lunate and triquetral bone. Osteoarthritic changes of the joint b etween the scaphoid and trapezoid bone. Osteoarthritic changes of the first carpometacarpal joint. SOFT TISSUES: Soft tissue swelling seen on the dorsum of the wrist. IMPRESSION: No acute osseous abnormality right wrist. Cystic changes in the lunate and triquetral bone suggestive of degenerative changes. Polyarticular osteoarthritic changes. Reviewed, dictated and finalized at location A. IMPRESSION: No acute osseous abnormality right wrist. Cystic changes in the lunate and triquetral bone suggestive of degenerative amandeep nges. Polyarticular osteoarthritic changes.
--- OUTSIDE RECORDS SUMMARY | 2025-05-04 15:44 | XMS_ITS | Encounter Summary ---
Author Organization [facility] Care Team Providers Care Information Technology Intern Name Role Phone No, Physician Primary Care Provider Valente Dockery MD Primary Care Provider Encounter Details Date Type Department Care Team (Latest Contact Info) Description 02/21/2017 Orders Only [facility] ProviderAlonso MD [address] [place] [address] Social History Tobacco Use Types Packs/Day Years Used Date Smoking Tobacco: Never Assessed Comments Unknown Sex and Gender Information Value Date Recorded Sex Assigned at Not on file Legal Sex Female 8:22 AM PAPER SLITTER Gender Identity Not on file Sexual Orientation [...] on filedocumented in this encounter Care Teams Information Technology Intern Relationship Specialty Start Date End Date No, Physician PCP - General 11/28/17 12/06/17 Valente Dockery MD [address] [address] PCP - General Family Medicine 12/07/17 documented as of this encounter
--- OUTSIDE RECORDS SUMMARY | 2025-05-04 15:44 | XMS_ITS | Clinical Summary ---
Author Organization [facility] [address] Address [address] [place] [address] Care Team Providers Care Manufacturer Agent Name Role Phone Valente Dockery MD Primary [...] by mouth every 4 hours 0 Active uyraesve-soo-gjvbk acid-biotin 66.7-1,000 mcg tablet Take 1 tablet [...] 01/21/2018 Assessment & Plan (01/21/2018 1:12 PM SENIOR SALES ADMINISTRATOR): Low TSH DD: Hyperthyroidism ( overt vs [...] 12/28 Assessment & Plan (01/21/2018 1:12 PM SENIOR SALES ADMINISTRATOR): Obesity is worsening. Discussed the patient's BMI. [...] CDT - 03/03/2025 11:30 AM CDT Surgery [facility] Cardiac Catheterization [facility] [address] [place] [address] Contreras Serrano MD LEFT HEART CATHETERIZATION WITH CORONARY ANGIOGRAPHY AND WITH OR WITHOUT LEFT VENTRICULOGRAM [id number] 03/03/2025 8:10 AM CDT - 03/03/2025 1:04 PM CDT Hospital Encounter [facility]iac [facility]atheter[facility] [address] [place] [address] Contreras Serrano MD Angina pectoris, unstable (HCC) Discharge Disposition: Discharge to home or self care 02/13/2025 8:30 AM CDT Office Visit [facility] Cardiology [address] [place] [phone] Contreras Serrano MD Mixed hyperlipidemia (Primary Dx); PSVT (paroxysmal supraventricular tachycardia); Primary hypertension; Family history of premature CAD; Family history of aortic aneurysm; CORDOBA (dyspnea on exertion); Exertional chest pain 02/13/2025 Telephone [facility] Cardiology [address] [place] [phone] Contreras Serrano MD from Last 3 Months Surgical History Surgery Date Site/Laterality Comments KNEE SURGERY Left TOTAL HIP ARTHROPLASTY Left CERVICAL FUSION LUMBAR FUSION CATARACT EXTRACTION Bilateral CARDIAC CATHETERIZATION 03/03/2025 N/A Procedure: LEFT HEART CATHETERIZATION WITH CORONARY ANGIOGRAPHY AND WITH OR WITHOUT LEFT VENTRICULOGRAM [id number]; Surgeon: Contreras Serrano MD; Location: CARDIAC DESIGN CHIEF; Service: Cardiovascular; Laterality: N/A; Medical devices from [...] on file Legal Sex Female 8:22 AM SENIOR SALES ADMINISTRATOR Gender Identity Not on file Sexual Orientation [...] 03/03/2026 03/03/2025 Medical Devices Implanted Type Area Financial Services Associate Device Identifier Shelf Expiration Date Model / Serial / Lot [facility] [employer] [facility] Device Closure Vascade Od5 Fr Femoral Artery [id number] - [id number] Implanted:Qty: 1 on 03/03/2025 by Contreras Serrano MD at [facility] [employer] [facility] 06/23/2026 [id number] / / [id number] Procedures Procedure Name Priority Date/Time Associated Diagnosis Comments LEFT HEART CATHETERIZATION WITH CORONARY ANGIOGRAPHY AND WITH AND WITHOUT LEFT VENTRICULOGRAM Routine 03/03/2025 10:10 AM CDT Angina pectoris, unstable (HCC) MODERATE SEDATION SAME MD PERSAUD ADDL 15 MIN [id number] 03/03/2025 9:23 AM CDT Angina pectoris, unstable (HCC) MODERATE SEDATION FIRST 15MIN 5+ YEAR [address] 03/03/2025 9:23 AM CDT Angina pectoris, unstable [...] @CSN@ Date of Procedure: 03/03/2025 BIRTHDATE: 1955 POWER GENERATION EQUIPMENT REPAIRER: Contreras Serrano MD PREPROCEDURE DIAGNOSES: past history [...] Right common femoral arterial angiogram. Deployment five Singaporean Vascade closure device. FINDINGS: Left main if [...] informed consent patient was brought into the label printer where she was draped and prepped in the usual manner. Moderate sedation was given and the right groin infiltrated using 1% lidocaine. Five Singaporean sheath was obtained using micropuncture needle and modified Seldinger technique. Selective left coronary angiogram was done using JL4 catheter with the tip of the catheter placed in the left main coronary artery. Selective right coronary angiogram was done using JR4 catheter with the tip of the catheter placed in the right coronary artery. After that 5 Singaporean pigtail catheter was advanced across aortic valve into the left ventricular with measurement of LVEDP and measure gradient across aortic valve. Right common femoral arterial angiogram was done and deployed 6 Singaporean Angio-Seal. Access site: Right common femoral artery Hemostasis: five Singaporean Vascade closure device. CONCLUSIONS 20-30% proximal LAD otherwise no CAD. PLAN Continue risk factor modification for CAD. Contreras Serrano MD CV CARDIAC CATH PROC EDURES Final Result * CBC without differential (03/03/2025 8:55 AM CDT) [facility] WBC 5.97 3.80 - 9.90 K/cumm Hgb 11.9 11.9 - 15.5 g/dL [facility] Hct 36.1 35.6 - 45.5 % [facility] Plt 198 150 - 400 K/cumm [facility] MPV 10.0 9.1 - 12.3 fL [facility] RBC 4.05 3.90 - 5.20 M/cumm [facility] MCV 89.1 81.3 - 96.4 fL [facility] MCH 29.4 27.1 - 33.3 pg [facility] MCHC 33.0 32.3 - 35.7 g/dL [facility] RDW CV 13.3 11.1 - 14.9 % [facility] RDW SD 43.8 35.7 - 48.1 fL [facility] NRBC abs 0.00 0.00 - 0.01 K/cumm [facility] Blood 03/03/2025 8:55 AM CDT 03/03/2025 8:57 AM CDT Contreras Serrano MD LAB BLOOD ORDERABLES Final Result SYLVIA MALIK [address] [facility] Department [place] [address] * eGFR (03/03/2025 8:54 AM CDT) eGFR [...] Serrano MD LAB BLOOD ORDERABLES Final Result [facility] [address] [facility] Department [place] [address] * Comprehensive metabolic panel (03/03/2025 8:54 AM CDT) Pathologist [facility] Sodium 142 135 - 145 mmol/L Potassium, pl 4.1 3.3 - 4.9 mmol/L [facility] Chloride 108 97 - 110 mmol/L [facility] CO2 24 22 - 32 mmol/L [facility] Anion gap 10 2 - 15 mmol/L [facility] BUN 19 6 - 25 mg/dL [facility] Creatinine 0.91 0.60 - 1.10 mg/dL [facility] Glucose 101 70 - 199 mg/dL [facility] Comment: Interpretive Data Fasting glucose >/= 126 [...] MD LAB BLOOD ORDERABLES Final Result SYLVIA [address] [facility] Department of Laboratories [place] [id number] * POCT lipid panel (02/13/2025 8:44 AM [...] Last 3 Months Insurance MEDICARE [facility] Address: [address] [place] [id number] FOR LIFE MEDICARE FOR LIFE Advance Directives For more information, please contact: [phone] * Full Code (Latest Code Status on File) Date Activated Date Inactivated Comments 03/03/2025 12:43 PM 03/03/2025 6:01 PM Care Teams Manufacturer Agent Relationship Specialty Start Date End Date Valente Dockery MD [address] [facility] [address] [place] [address] PCP - General Family Medicine 12/07/17
--- OUTSIDE RECORDS SUMMARY | 2025-05-04 15:44 | XMS_ITS | Clinical Summary ---
Author Organization [facility] Address [address] [place] [address] Care Team Providers Care Professor Of Music Name Role Phone Unavailable Primary Care Provider Unavailabl e Source Comments [facility],non-owned Affiliates and Associated Physician Practices is amultiple site organization consisting of ambulatory clinics and hospital sitesin [place], [place], [place] and [place]. This disclosure is being madepursuant to the Care Everywhere program and may not contain all information available regarding this patient. 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 on file Not on file Not on file Last Filed Vital Signs Vital Sign Reading Time Taken Comments Blood Pressure 132/83 12/30/2009 6:05 AM CRUSHER TENDER Pulse 77 12/30/2009 6:05 AM CRUSHER TENDER Temperature 36.3 C (97.4 F) 12/30/2009 6:05 AM CRUSHER TENDER Respiratory Rate 16 12/30/2009 6:05 AM CRUSHER TENDER Oxygen Saturation 95% 12/30/2009 6:05 AM CRUSHER TENDER Inhaled Oxygen Concentration - - Weight 100.5 kg (221 lb 9 oz) 12/30/2009 6:05 AM CRUSHER TENDER Height 154.9 cm (5' 1) 12/30/2009 6:05 AM CRUSHER TENDER Body Mass Index 41.86 12/30/2009 6:05 AM CRUSHER TENDER Plan of Treatment Health Maintenance Due Date [...]
--- OUTSIDE RECORDS SUMMARY | 2025-05-04 15:44 | XMS_ITS | Clinical Summary ---
Author Organization [facility] Address [address] [place] [address] Phone Care Team Providers Care Production Planner Name Role Phone Valente Dockery MD Primary [...] on file Legal Sex Female 4:41 PM PEDIATRIC INTENSIVE PHYSICIAN Gender Identity Not on file Sexual Orientation Not on file Plan of Treatment Health Maintenance Due Date Last Done Comments Hepatitis C Virus (HCV) Screening 1955 TdaP Immunization 1955 Colonoscopy 2001 Colorectal Cancer Screening 2001 Cologuard 2006 Immunochemical Fecal Occult Blood 2006 Pneumococcal Immunization (5 0+ years) (1 of 1 - PCV) 2006 Zoster Immunization (1 of 2) 2006 SARS-COV-2 Immunization (1 - 2023- season) 2024 Influenza Immunization (Seas on Ended) 2025 Respiratory Syncytial Virus (RSV) Immunization (Adult) (1 - 1-dose 75+ series) 2031 Hepatitis B Immunization Aged Out No longer eligible based on patient's age to complete this topic Human Papillomavirus (HPV) Immunization Aged Out No longer eligible b ased on patient's age to complete this topic Meningococcal Immunization (ACWY) Aged Out No longer eligible based on patient's age to complete this topic Rotavirus Immunization Aged Out No lo nger eligible based on patient's age to complete this topic Insurance MEDICARE [employer] Care Teams Production Planner Relationship Specialty Start Date End Date Valente Dockery MD [address] [place] [address] PCP - General Family Medicine 11/01/17
--- OUTSIDE RECORDS SUMMARY | 2025-05-04 15:44 | XMS_ITS | Encounter Summary ---
Author Organization [facility] Care Team Providers Care Natural Sciences Professor Name Role Phone No, Physician Primary Care Provider [phone] Valente Dockery MD Primary Care Provider Encounter Details Date Type Department Care Team (Latest Contact Info) Description 02/20/2017 Orders Only [facility] ProviderAlonso MD [address] [place] [address] Social History Tobacco Use Types Packs/Day Years Used Date Smoking Tobacco: Never Assessed Comments Unknown Sex and Gender Information Value Date Recorded Sex Assigned at Not on file Legal Sex Female 8:22 AM CHIEF TECHNOLOGY OFFICER Gender Identity Not on file Sexual Orientation [...] on filedocumented in this encounter Care Teams Natural Sciences Professor Relationship Specialty Start Date End Date No, Physician PCP - General 11/28/17 12/06/17 Valente Dockery MD [address] [address] PCP - General Family Medicine 12/07/17 documented as of this encounter
--- OUTSIDE RECORDS SUMMARY | 2025-05-04 15:44 | XMS_ITS | Encounter Summary ---
Author Organization [facility] Address [address] [place] [address] Care Team Providers Care Pipe Stress Engineer Name Role Phone Panfilo Paige MD Primary Care Provider [phone] Encounter Details Date Type Department Care Team (Late st Contact Info) Description 11/10/2009 [facility] Unknown, Provider Social History Tobacco Use Types Packs/Day Years Used Date Smoking Tobacco: Never Assessed Comments Unknown Sex and Gender Information Value Date Recorded Sex Assigned at Not on file Legal Sex Female 8:18 AM PACKAGING SUPERVISOR Gender Identity Not on file Sexual Orientation Not on file documented as of this encounter Plan of Treatment Not on file documented as of this encounter Visit Diagnoses Not on filedocumented in this encounter Care Teams Pipe Stress Engineer Relationship Specialty Start Date End Date Panfilo Paige MD [address] [place] [address] PCP - General 11/29/09 12/01/09 documented as of this encounter
--- OUTSIDE RECORDS SUMMARY | 2025-05-04 15:44 | XMS_ITS | Referral Summary ---
Author Organization [facility] [address] Address [address] [place] [address] Care Team Providers Care Industrial Arts Teacher Name Role Phone Valente Dockery MD Primary Care Provider Encounters Date Type Department Care Team Description 03/03/2025 10:00 AM CDT - 03/03/2025 11:30 AM CDT Surgery [facility] Cardiac Catheterization Lab [address] [place] [address] Contreras Serrano MD LEFT HEART CATHETERIZATION WITH CORONARY ANGIOGRAPHY AND WITH OR WITHOUT LEFT VENTRICULOGRAM [id number] 03/03/2025 8:10 AM CDT - 03/03/2025 1:04 PM CDT Hospital Encounter [facility] Cardiac Catheterization Lab [address] [place] [address] Contreras Serrano MD Angina pectoris, unstable (HCC) Discharge Disposition: Discharge to home or self care 02/13/[address] [facility] Medical [facility] Cardiology [address] [place] [phone] Contreras Serrano MD 02/13/2025 8:30 AM CDT Office Visit [facility] Cardiology [address] [place] [phone] Contreras Serrano MD Mixed hyperlipidemia (Primary [...] by mouth every 4 hours 0 Active gidoeblr-thr-pqogw acid-biotin 66.7-1,000 mcg tablet Take 1 tablet [...] 01/21/2018 Assessment & Plan (01/21/2018 1:12 PM HYDRAULIC LIFT OPERATOR): Low TSH DD: Hyperthyroidism ( overt [...] 12/28 Assessment & Plan (01/21/2018 1:12 PM HYDRAULIC LIFT OPERATOR): Obesity is worsening. Discussed the patient's [...] file Legal Sex Female 8:22 AM HYDRAULIC LIFT OPERATOR Gender Identity Not on file Sexual [...] on file Medical Devices Implanted Type Area Fur Sorter Device Identifier Shelf Expiration Date Model / Serial / Lot [facility] Device Closure Vascade Od5 Fr Femoral Artery [id number] - [id number] Implanted:Qty: 1 on 03/03/2025 by Contreras Serrano MD at [facility] [employer] [facility] 06/23/2026 [id number] / / [id number] Procedures Procedure Name Priority Date/Time Associated Diagnosis Comments LEFT HEART CATHETERIZATION WITH CORONARY ANGIOGRAPHY AND WITH AND WITHOUT LEFT VENTRICULOGRAM Routine 03/03/2025 10:10 AM CDT Angina pectoris, unstable (HCC) MODERATE SEDATION SAME MD PERSAUD ADDL 15 MIN [id number] 03/03/2025 9:23 AM CDT Angina pectoris, unstable (HCC) MODERATE SEDATION FIRST 15MIN 5+ YEAR [address] 03/03/2025 9:23 AM CDT Angina pectoris, unstable [...] @CSN@ Date of Procedure: 03/03/2025 BIRTHDATE: 1955 VENDING MACHINE OPERATOR: Contreras Serrano MD PREPROCEDURE DIAGNOSES: past [...] Right common femoral arterial angiogram. Deployment five Chadian Vascade closure device. FINDINGS: Left main if [...] informed consent patient was brought into the veterinarian laboratory animal care where she was draped and prepped in the usual manner. Moderate sedation was given and the right groin infiltrated using 1% lidocaine. Five Chadian sheath was obtained using micropuncture needle and modified Seldinger technique. Selective left coronary angiogram was done using JL4 catheter with the tip of the catheter placed in the left main coronary artery. Selective right coronary angiogram was done using JR4 catheter with the tip of the catheter placed in the right coronary artery. After that 5 Chadian pigtail catheter was advanced across aortic valve into the left ventricular with measurement of LVEDP and measure gradient across aortic valve. Right common femoral arterial angiogram was done and deployed 6 Chadian Angio-Seal. Access site: Right common femoral artery Hemostasis: five Chadian Vascade closure device. CONCLUSIONS 20-30% proximal LAD [...] BLOOD ORDERABLES Final Result Performing Organization Address [facility]/ZIP Co de Phone Number SYLVIA MALIK [address] [place] [address] * eGFR (03/03/2025 8:54 AM CDT) eGFR [...] BLOOD ORDERABLES Final Result Performing Organization Address City/[facility]/ZIP Co de Phone Number SYLVIA MALIK [address] [facility] [address] [place] [address] * Comprehensive metabolic panel (03/03/2025 8:54 AM CDT) Sodium 142 135 - 145 mmol/L Potassium, pl 4.1 3.3 - 4.9 mmol/L [facility] Chloride 108 97 - 110 mmol/L [facility] CO2 24 22 - 32 mmol/L [...] MD LAB BLOOD ORDERABLES Final Result SYLVIA [address] [facility] Department [place] [address] * POCT lipid panel (02/13/2025 8:44 AM CDT) Cholesterol, POC 129 mg/dL HDL, POC 54 mg/dL Triglycerides, POC 132 mg/dL LDL Cholesterol POC 49 mg/dL Chol/HDL Ratio, POC 2.4 Non-HDL Cholesterol, POC 75 mg/dL Cholesterol Total, POC 129 mg/dL Capillary blood 02/13/2025 8 :44 AM CDT us Contreras Serrano MD POINT OF CARE TEST O RDERABLES Final Result from Last 3 Months Insurance [employer] LIFE MEDICARE [employer] FOR LIFE Advance Directives For more information, please contact: [phone] * Full Code (Latest Code Status on File) Date Activated Date Inactivated Comments 03/03/2025 12:43 PM 03/03/2025 6:01 PM Care Teams Industrial Arts Teacher Relationship Specialty Start Date End Date Valente Dockery MD [address] [facility] [address] [place] [address] PCP - General Family Medicine 12/07/17
== END 2025-05-04 14:31 | disposition home or self-care (01) ==
LOC: ANHIMG 14:35
PROVIDERS: PCP Family Medicine; Visit Provider Plastic Surgery
DX: M19.031 Primary osteoarthritis, right wrist (principal)
CPT/HCPCS: 73110

== ENCOUNTER 2025-05-11 11:24 | Outpatient (CLI) | payer MEDICARE, OTHER, SELFPAY ==
--- NOTE | ~2025-05-11 | XR_ITS ---
Clinical Indication: Status post fall PA and lateral views of the chest: Comparison: 12/25/2019 Findings: The lungs are clear, without evidence of focal consolidation or pleural effusion. Cardiome diastinal silhouette is within normal limits. Spinal fixation hardware noted the cervical and thoraci c spine.. Impression: Clear lungs. Reviewed, dictated and finalized at location . Impression: Clear lungs.
--- OUTSIDE RECORDS SUMMARY | 2025-05-11 12:45 | XMS_ITS | Clinical Summary ---
Author Organization [facility] [address] Address [address] [place] [address] Care Team Providers Care Dye Padder Operator Name Role Phone Valente Dockery MD [...] by mouth every 4 hours 0 Active dviznvso-zed-zhizf acid-biotin 66.7-1,000 mcg tablet Take 1 tablet [...] 01/21/2018 Assessment & Plan (01/21/2018 1:12 PM SECURITY POLICE OFFICER): Low TSH DD: Hyperthyroidism ( overt vs [...] 12/28 Assessment & Plan (01/21/2018 1:12 PM SECURITY POLICE OFFICER): Obesity is worsening. Discussed the patient's BMI. [...] CDT - 03/03/2025 11:30 AM CDT Surgery [facility] Cardiac Catheterization Lab [address] [place] [address] Contreras Serrano MD LEFT HEART CATHETERIZATION WITH CORONARY ANGIOGRAPHY AND WITH OR WITHOUT LEFT VENTRICULOGRAM [id number] 03/03/2025 8:10 AM CDT - 03/03/2025 1:04 PM CDT Hospital Encounter [facility] Cardiac Catheterization Lab [address] [place] [address] Contreras Serrano MD Angina pectoris, unstable (HCC) Discharge Disposition: Discharge to home or self care 02/13/2025 8:30 AM CDT Office Visit [facility] Cardiology [address] [place] [phone] Contreras Serrano MD Mixed hyperlipidemia (Primary Dx); PSVT (paroxysmal supraventricular tachycardia); Primary hypertension; Family history of premature CAD; Family history of aortic aneurysm; CORDOBA (dyspnea on exertion); Exertional chest pain 02/13/2025 Telephone [facility] Cardiology [address] [place] [phone] Contreras Serrano MD from Last 3 Months Surgical History Surgery Date Site/Laterality Comments KNEE SURGERY Left TOTAL HIP ARTHROPLASTY Left CERVICAL FUSION LUMBAR FUSION CATARACT EXTRACTION Bilateral CARDIAC CATHETERIZATION 03/03/2025 N/A Procedure: LEFT HEART CATHETERIZATION WITH CORONARY ANGIOGRAPHY AND WITH OR WITHOUT LEFT VENTRICULOGRAM [id number]; Surgeon: Contreras Serrano MD; Location: CARDIAC MANAGER SIX SIGMA; Service: Cardiovascular; Laterality: N/A; Medical devices from [...] on file Legal Sex Female 8:22 AM SECURITY POLICE OFFICER Gender Identity Not on file Sexual [...] 03/03/2026 03/03/2025 Medical Devices Implanted Type Area Meat Team Lead Device Identifier Shelf Expiration Date Model / Serial / Lot [facility] Device Closure Vascade Od5 Fr Femoral Artery [id number] - [id number] Implanted:Qty: 1 on 03/03/2025 by Contreras Serrano MD at [facility] 06/23/2026 [id number] / / [id number] Procedures Procedure Name Priority Date/Time Associated Diagnosis Comments LEFT HEART CATHETERIZATION WITH CORONARY ANGIOGRAPHY AND WITH AND WITHOUT LEFT VENTRICULOGRAM Routine 03/03/2025 10:10 AM CDT Angina pectoris, unstable (HCC) MODERATE SEDATION SAME MD PERSAUD ADDL 15 MIN [id number] 03/03/2025 9:23 AM CDT Angina pectoris, unstable (HCC) MODERATE SEDATION FIRST 15MIN 5+ YEAR [address] 03/03/2025 9:23 AM CDT Angina pectoris, unstable [...] @CSN@ Date of Procedure: 03/03/2025 BIRTHDATE: 1955 ADVERTISING AGENT: Contreras Serrano MD PREPROCEDURE DIAGNOSES: past history [...] Right common femoral arterial angiogram. Deployment five Bolivian Vascade closure device. FINDINGS: Left main if [...] informed consent patient was brought into the slab stripper where she was draped and prepped in the usual manner. Moderate sedation was given and the right groin infiltrated using 1% lidocaine. Five Bolivian sheath was obtained using micropuncture needle and modified Seldinger technique. Selective left coronary angiogram was done using JL4 catheter with the tip of the catheter placed in the left main coronary artery. Selective right coronary angiogram was done using JR4 catheter with the tip of the catheter placed in the right coronary artery. After that 5 Bolivian pigtail catheter was advanced across aortic valve into the left ventricular with measurement of LVEDP and measure gradient across aortic valve. Right common femoral arterial angiogram was done and deployed 6 Bolivian Angio-Seal. Access site: Right common femoral artery Hemostasis: five Bolivian Vascade closure device. CONCLUSIONS 20-30% proximal LAD otherwise no CAD. PLAN Continue risk factor modification for CAD. Contreras Serrano MD CV CARDIAC CATH PROC EDURES Final Result * CBC without differential (03/03/2025 8:55 AM CDT) [facility] WBC 5.97 3.80 - 9.90 K/cumm Hgb 11.9 11.9 - 15.5 g/dL [facility] Hct 36.1 35.6 - 45.5 % [facility] Plt 198 150 - 400 K/cumm [facility] MPV 10.0 9.1 - 12.3 fL [facility] RBC 4.05 3.90 - 5.20 M/cumm [facility] MCV 89.1 81.3 - 96.4 fL [facility] MCH 29.4 27.1 - 33.3 pg [facility] MCHC 33.0 32.3 - 35.7 g/dL [facility] RDW CV 13.3 11.1 - 14.9 % [facility] RDW SD 43.8 35.7 - 48.1 fL [facility] NRBC abs 0.00 0.00 - 0.01 K/cumm [facility] Blood 03/03/2025 8:55 AM CDT 03/03/2025 8:57 AM CDT Contreras Serrano MD LAB BLOOD ORDERABLES Final Result SYLVIA MALIK [address] [facility] [place] [address] * eGFR (03/03/2025 8:54 AM CDT) eGFR [...] Serrano MD LAB BLOOD ORDERABLES Final Result [facility] [address] [facility] [place] [address] * Comprehensive metabolic panel (03/03/2025 8:54 AM CDT) Pathologist [facility] Sodium 142 135 - 145 mmol/L Potassium, pl 4.1 3.3 - 4.9 mmol/L [facility] Chloride 108 97 - 110 mmol/L [facility] CO2 24 22 - 32 mmol/L [facility] Anion gap 10 2 - 15 mmol/L [facility] BUN 19 6 - 25 mg/dL [facility] Creatinine 0.91 0.60 - 1.10 mg/dL [facility] Glucose 101 70 - 199 mg/dL [facility] Comment: Interpretive Data Fasting glucose >/= [...] MD LAB BLOOD ORDERABLES Final Result [facility]LVIA [address] [facility] Department of Laboratories [place] [id number] * POCT lipid panel (02/13/2025 8:44 AM CDT) Cholesterol, POC 129 mg/dL HDL, POC 54 mg/dL Triglycerides, POC 132 mg/dL LDL Cholesterol POC 49 mg/dL Chol/HDL Ratio, POC 2.4 Non-HDL Cholesterol, POC 75 mg/dL Cholesterol Total, POC 129 mg/dL Capillary blood 02/13/2025 8 :44 AM CDT Contreras Serrano MD POINT OF CARE TEST O RDERABLES Final Result from Last 3 Months Insurance MEDICARE FOR LIFE MEDICARE FOR LIFE Advance Directives For more information, please contact: [phone] * Full Code (Latest Code Status on File) Date Activated Date Inactivated Comments 03/03/2025 12:43 PM 03/03/2025 6:01 PM Care Teams Dye Padder Operator Relationship Specialty Start Date End Date Valente Dockery MD [address] [place] [address] PCP - General Family Medicine 12/07/17
--- OUTSIDE RECORDS SUMMARY | 2025-05-11 12:45 | XMS_ITS | Clinical Summary ---
Author Organization [facility] Address [address] [place] [address] Care Team Providers Care Engineering Test Specialist Name Role Phone Unavailable Primary Care Provider Unavailabl e Source Comments [facility],non-owned Affiliates and Associated Physician Practices is amultiple site organization consisting of ambulatory clinics and hospital sitesin [place], [place], [place] and [place]. This disclosure is being madepursuant to the Care Everywhere program and may not contain all information available regarding this patient. 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 file Not on file Not on file Last Filed Vital Signs Vital Sign Reading Time Taken Comments Blood Pressure 132/83 12/30/2009 6:05 AM SENIOR QUALITY ENGINEER Pulse 77 12/30/2009 6:05 AM SENIOR QUALITY ENGINEER Temperature 36.3 C (97.4 F) 12/30/2009 6:05 AM SENIOR QUALITY ENGINEER Respiratory Rate 16 12/30/2009 6:05 AM SENIOR QUALITY ENGINEER Oxygen Saturation 95% 12/30/2009 6:05 AM SENIOR QUALITY ENGINEER Inhaled Oxygen Concentration - - Weight 100.5 kg (221 lb 9 oz) 12/30/2009 6:05 AM SENIOR QUALITY ENGINEER Height 154.9 cm (5' 1) 12/30/2009 6:05 AM SENIOR QUALITY ENGINEER Body Mass Index 41.86 12/30/2009 6:05 AM SENIOR QUALITY ENGINEER Plan of Treatment Health Maintenance Due Date [...]
--- OUTSIDE RECORDS SUMMARY | 2025-05-11 12:45 | XMS_ITS | Encounter Summary ---
Author Organization [facility] Care Team Providers Care Workforce Staffing Advisor Name Role Phone No, Physician Primary Care Provider [phone] Valente Dockery MD Primary Care Provider Encounter Details Date Type Department Care Team (Latest Contact Info) Description 02/20/2017 Orders Only [facility] CLINCONV ProviderAlonso MD [address] [place] [address] Social History Tobacco Use Types Packs/Day Years Used Date Smoking Tobacco: Never Assessed Comments Unknown Sex and Gender Information Value Date Recorded Sex Assigned at Not on file Legal Sex Female 8:22 AM PHLEBOTOMIST MEDICAL LAB ASSISTANT Gender Identity Not on file Sexual [...] on filedocumented in this encounter Care Teams Workforce Staffing Advisor Relationship Specialty Start Date End Date No, Physician PCP - General 11/28/17 12/06/17 Valente Dockery MD [address] [address] PCP - General Family Medicine 12/07/17 documented as of this encounter
--- OUTSIDE RECORDS SUMMARY | 2025-05-11 12:45 | XMS_ITS | Clinical Summary ---
Author Organization [facility] Address [address] [place] [address] Phone Care Team Providers Care Christmas Tree Farm Crew Boss Name Role Phone Valente Dockery MD Primary [...] on file Legal Sex Female 4:41 PM CORONER TECHNICIAN Gender Identity Not on file Sexual Orientation Not on file Plan of Treatment Health Maintenance Due Date Last Done Comments Hepatitis C Virus (HCV) Screening 1955 TdaP Immunization 1955 Cologuard 2001 Colonoscopy 2001 Colorectal Cancer Screening 2001 Immunochemical Fecal Occult Blood 2001 Pneumococcal Immunization (5 0+ years) (1 of [...] age to complete this topic Insurance MEDICARE [employer] Care Teams [employer] Crew Boss Relationship Specialty Start Date End Date Valente Dockery MD [address] [place] [address] PCP - General Family Medicine 11/01/17
--- OUTSIDE RECORDS SUMMARY | 2025-05-11 12:45 | XMS_ITS | Encounter Summary ---
Author Organization [facility] Address [address] [place] [address] Care Team Providers Care Fish Hatchery Inspector Name Role Phone Panfilo Paige MD Primary Care Provider [phone] Encounter Details Date Type Department Care Team (Late st Contact Info) Description 11/10/2009 [facility] Visit [facility]TERNAL [facility] DEPT Unknown, Provider Social History Tobacco Use Types Packs/Day Years Used Date Smoking Tobacco: Never Assessed Comments Unknown Sex and Gender Information Value Date Recorded Sex Assigned at Not on file Legal Sex Female 8:18 AM AUTOMOBILE DAMAGE FIELD APPRAISER Gender Identity Not on file Sexual Orientation Not on file documented as of this encounter Plan of Treatment Not on file documented as of this encounter Visit Diagnoses Not on filedocumented in this encounter Care Teams Fish Hatchery Inspector Relationship Specialty Start Date End Date Panfilo Paige MD [address] [place] [address] PCP - General 11/29/09 12/01/09 documented as of this encounter
--- OUTSIDE RECORDS SUMMARY | 2025-05-11 12:45 | XMS_ITS | Referral Summary ---
Author Organization [facility] [address] Address [address] [place] [address] Care Team Providers Care Facilities Maintenance Supervisor Name Role Phone Valente Dockery MD Primary Care Provider Encounters Date Type Department Care Team Description 03/03/2025 10:00 AM CDT - 03/03/2025 11:30 AM CDT Surgery [facility] Cardiac Catheterization Lab [address] [place] [address] Contreras Serrano MD LEFT HEART CATHETERIZATION WITH CORONARY ANGIOGRAPHY AND WITH OR WITHOUT LEFT VENTRICULOGRAM [id number] 03/03/2025 8:10 AM CDT - 03/03/2025 1:04 PM CDT Hospital Encounter [facility] Cardiac Catheterization Lab [address] [place] [address] Contreras Serrano MD Angina pectoris, unstable (HCC) Discharge Disposition: Discharge to home or self care 02/13/2025 Telephone [facility] Cardiology [address] [place] [phone] Contreras Serrano MD 02/13/2025 8:30 AM CDT Office Visit [facility] Cardiology [address] [place] [phone] Contreras Serrano MD Mixed hyperlipidemia (Primary [...] by mouth every 4 hours 0 Active kgmbmmsm-tpi-xajbn acid-biotin 66.7-1,000 mcg tablet Take 1 tablet [...] 01/21/2018 Assessment & Plan (01/21/2018 1:12 PM TOP COATER): Low TSH DD: Hyperthyroidism ( overt vs [...] 12/28 Assessment & Plan (01/21/2018 1:12 PM TOP COATER): Obesity is worsening. Discussed the patient's BMI. 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 Gender Identity Not on file Sexual Orientation [...] on file Medical Devices Implanted Type Area Rate Clerk Device Identifier Shelf Expiration Date Model / Serial / [facility] Device Closure Vascade Od5 Fr Femoral Artery [id number] - [id number] Implanted:Qty: 1 on 03/03/2025 by Contreras Serrano MD at [facility] 06/23/2026 [id number] / / [id number] Procedures Procedure Name Priority Date/Time Associated Diagnosis Comments LEFT HEART CATHETERIZATION WITH CORONARY ANGIOGRAPHY AND WITH AND WITHOUT LEFT VENTRICULOGRAM Routine 03/03/2025 10:10 AM CDT Angina pectoris, unstable (HCC) MODERATE SEDATION SAME MD PERSAUD ADDL 15 MIN 07404 03/03/2025 9:23 AM CDT Angina pectoris, unstable (HCC) MODERATE SEDATION FIRST 15MIN 5+ YEAR [address] 03/03/2025 9:23 AM CDT Angina pectoris, unstable [...] @CSN@ Date of Procedure: 03/03/2025 BIRTHDATE: 1955 FLUME MAKER: Contreras Serrano MD PREPROCEDURE DIAGNOSES: past history [...] Right common femoral arterial angiogram. Deployment five Burundian Vascade closure device. FINDINGS: Left main if [...] informed consent patient was brought into the laborer beam house where she was draped and prepped in the usual manner. Moderate sedation was given and the right groin infiltrated using 1% lidocaine. Five Burundian sheath was obtained using micropuncture needle and modified Seldinger technique. Selective left coronary angiogram was done using JL4 catheter with the tip of the catheter placed in the left main coronary artery. Selective right coronary angiogram was done using JR4 catheter with the tip of the catheter placed in the right coronary artery. After that 5 Burundian pigtail catheter was advanced across aortic valve into the left ventricular with measurement of LVEDP and measure gradient across aortic valve. Right common femoral arterial angiogram was done and deployed 6 Burundian Angio-Seal. Access site: Right common femoral artery Hemostasis: five [place]undian Vascade closure device. CONCLUSIONS 20-30% proximal LAD [...] BLOOD ORDERABLES Final Result Performing Organization Address [facility]/ZIP Co de Phone Number SYLVIA MALIK [address] [place] [address] * eGFR (03/03/2025 8:54 AM CDT) eGFR [...] BLOOD ORDERABLES Final Result Performing Organization Address City/[facility]/ZIP Co de Phone Number SYLVIA MALIK [address] [facility] [place] [address] * Comprehensive metabolic panel (03/03/2025 8:54 AM CDT) Sodium 142 135 - 145 mmol/L Potassium, pl 4.1 3.3 - 4.9 mmol/L [facility] Chloride 108 97 - 110 mmol/L [facility] CO2 24 22 - 32 mmol/L CERNER [...] MD LAB BLOOD ORDERABLES Final Result SYLVIA [address] [facility] Department [place] [address] * POCT lipid panel (02/13/2025 8:44 AM CDT) Cholesterol, POC 129 mg/dL HDL, POC 54 mg/dL Triglycerides, POC 132 mg/dL LDL Cholesterol POC 49 mg/dL Chol/HDL Ratio, POC 2.4 Non-HDL Cholesterol, POC 75 mg/dL Cholesterol Total, POC 129 mg/dL Capillary blood 02/13/2025 8 :44 AM CDT us Contreras Serrano MD POINT OF CARE TEST O RDERABLES Final Result from Last 3 Months Insurance [facility] LIFE MEDICARE [employer] FOR LIFE Advance Directives For more information, please contact: [phone] * Full Code (Latest Code Status on File) Date Activated Date Inactivated Comments 03/03/2025 12:43 PM 03/03/2025 6:01 PM Care Teams Facilities Maintenance Supervisor Relationship Specialty Start Date End Date Valente Dockery MD [address] [facility] [address] [place] [address] PCP - General Family Medicine 12/07/17
--- OUTSIDE RECORDS SUMMARY | 2025-05-11 12:45 | XMS_ITS | Encounter Summary ---
Author Organization 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
== END 2025-05-11 11:25 | disposition home or self-care (01) ==
PROVIDERS: PCP Family Medicine; Visit Provider Student in an Organized Health Care Education/Training Program
DX: R07.89 Other chest pain (principal)
CPT/HCPCS: 71046

== ENCOUNTER 2025-11-02 10:44 | Outpatient (CLI) | payer MEDICARE, OTHER, SELFPAY ==
[2025-11-02 11:10] LABS: Hematocrit 37.7 % (37.0-47.0); Hemoglobin 12.4 g/dL (12.0-15.0); Mean Corpuscular HGB Conc 32.9 g/dl (32-36); Mean Corpuscular Hemoglobin 30.0 pg (26-34); Mean Corpuscular Volume 91.3 fl (80-100); Platelet Count Result 210 k/mm3 (150-375); Red Blood Count 4.13 M/mm3 (4.2-5.4); White Blood Count 7.7 K/mm3 (4.5-10.0)
[2025-11-02 11:25] LABS: Add Urine Microscopic? YES; Appearance Urine Clear (Clear); Glucose Urine UA Negative (Negative); Leukocyte Esterase Ur Trace LEU/UL (Negative); Nitrate Urine Negative (Negative); Non Pathogenic Casts 0-2; Specific Grav Ur 1.017 (1.001-1.035)
[2025-11-02 11:32] LABS: Alanine Aminotransferase 19 U/L (6-35); Albumin Level 4.3 g/dL (3.5-5.1); Alkaline Phosphatase 77 U/L (38-126); Anion Gap 4 mmol/L (4-12); Aspartate Amino Transferase 32 U/L (14-36); Bilirubin,Total 0.7 mg/dL (0.2-1.3); Blood Urea Nitrogen 18 mg/dL (7-17); Calcium 9.4 mg/dL (8.4-10.2); Carbon Dioxide 29 mmol/L (22-30); Chloride 105 mmol/L (98-107); Cholesterol 167 mg/dL (0-200); Estimated Glomerular Filt Rate 53; Glucose 94 mg/dL (65-110); HDL Direct 57 mg/dL; Potassium 4.2 mmol/L (3.4-5.0); Sodium 138 mmol/L (137-145); Total Protein 7.3 g/dL (6.3-8.2); Triglycerides 110 mg/dL (<150)
[2025-11-02 12:09] LABS: Thyroid Stimulating Hormone 1.270 uIU/mL (0.465-4.680)
== END 2025-11-02 10:45 | disposition home or self-care (01) ==
LOC: ANHLAB 10:46
PROVIDERS: PCP Family Medicine; Visit Provider Family Medicine
DX: E78.5 Hyperlipidemia, unspecified (principal); I12.9 Hypertensive chronic kidney disease with stage 1 through stage 4 chronic kidney disease, or unspecified chronic kidney disease; N18.30 Chronic kidney disease, stage 3 unspecified; Z00.00 Encounter for general adult medical examination without abnormal findings; R53.83 Other fatigue
CPT/HCPCS: 36415; 80053; 80061; 81001; 84443; 85027